=== PATIENT | female | born 1955 | race African-American/Black ===

== ENCOUNTER 2018-02-20 13:45 | Inpatient (IN) | payer MEDICARE, OTHER ==
[~2018-02-20] VITALS: Ht 152.4 cm; Wt 39.4 kg
[2018-02-20] VITALS (8 sets, daily range): BP systolic 132–178; BP diastolic 64–89; PULSE 40–72; RESP 9–18; TEMP 97.2; O2SAT 95–100
[~2018-02-20 13:45] MED LIST: AMLO5 PO; ATOR10 PO; RISP3 PO; RISP4TAB41 PO; SULF1TAB47 PO; TRAM50TA PO
[2018-02-20] MEDS ORDERED: SODIUM CHLOR 0.9% 1000 ML INJ 1,000 ML IV ONE ×2 (13:48→15:30)
[2018-02-20 14:06] LABS: AUTOMATED NEUTROPHIL # 3.8 TH/MM3 (1.8-7.7); BASOPHIL % 0.2 % (0.0-2.0); EOSINOPHIL % 0.1 % (0.0-4.0); HEMATOCRIT 30.7 % (35.0-46.0); HEMOGLOBIN 9.8 GM/DL (11.6-15.3); LYMPH % 24.7 % (9.0-44.0); LYMPHOCYTE # 1.3 TH/MM3 (1.0-4.8); MEAN CELL VOLUME 86.5 FL (80.0-100.0); MEAN CORPUSCULAR HEMOGLOBIN 27.7 PG (27.0-34.0); MEAN PLATELET VOLUME 8.5 FL (7.0-11.0); MONO % 1.9 % (0.0-8.0); MONOCYTE # 0.1 TH/MM3 (0-0.9); NEUT % 73.1 % (16.0-70.0); PLATELET COUNT 135 TH/MM3 (150-450); RED BLOOD COUNT 3.55 MIL/MM3 (4.00-5.30); RED CELL DISTRIBUTION WIDTH 19.6 % (11.6-17.2); WHITE BLOOD COUNT 5.2 TH/MM3 (4.0-11.0)
[2018-02-20 14:13] LABS: INTERNATIONAL NORMALIZED RATIO 1.2 RATIO; PROTHROMBIN TIME - PATIENT 12.4 SEC (9.8-11.6)
--- NOTE | 2018-02-20 14:15 | RADRPT ---
EXAM DATE/TIME: 02/20/2018 13:57 [facility] COMPARISON: No previous studies available for comparison. INDICATIONS : Altered mental status, slurred speech, low blood glucose levels. RADIATION DOSE: 35.64 CTDIvol (mGy) This report was called by Dr Benton to Dr Blakely at 1410 MEDICAL HISTORY : Non-responsive. SURGICAL HISTORY : Non-responsive. ENCOUNTER: Initial ACUITY: 1 day PAIN SCALE: Non-responsive LOCATION: cranial TECHNIQUE: Multiple contiguous axial images were obtained of the head. Using automated exposure control and adj ustment of the mA and/or kV according to patient size, radiation dose was kept as low as reasonably a chievable to obtain optimal diagnostic quality images. DICOM format image data is available electro nically for review and comparison. FINDINGS: CEREBRUM: Atrophy. The ventricles are normal for age. No evidence of midline shift, mass lesion, hemorrhage or acute infarction. No extra-axial fluid collections are seen. POSTERIOR FOSSA: The cerebellum and brainstem are intact. The 4th ventricle is midline. The cerebellopontine angle i s unremarkable. EXTRACRANIAL: The visualized portion of the orbits is intact. SKULL: The calvaria is intact. No evidence of skull fracture. CONCLUSION: No acute disease. Bud Benton Jr., MD on February 20, 2018 at 14:06 Board Certified Radiologist. This report was verified electronically.
--- NOTE | 2018-02-20 14:26 | RADRPT ---
EXAM DATE/TIME: 02/20/2018 14:00 [facility] COMPARISON: No previous studies available for comparison. INDICATIONS : Stroke Alert. MEDICAL HISTORY : None. SURGICAL HISTORY : None. ENCOUNTER: Initial ACUITY: 1 day PAIN SCORE: Non-responsive. LOCATION: Bilateral chest FINDINGS: Minimal parenchymal changes left base. Right lung is clear.. The cardiomediastinal contours are unr emarkable. Osseous structures are intact. CONCLUSION: Minimal parenchymal changes left base. Sudhakar Angel MD FACR on February 20, 2018 at 14:23 Board Certified Radiologist. This report was verified electronically.
--- NOTE | 2018-02-20 14:27 | PD ---
HPI Chief Complaint: Altered Mental Status Time Seen by Provider: 13:48 Travel History International Travel<30 days: No Contact w/Intl Traveler<30days: No Traveled to known affect area: No History of Present Illness HPI 62-year-old female presents by ambulance as a stroke alert after she was seen normal an hour ago. 30 minutes prior to arrival in the ER she had a fall and has trauma noted to her forehead. She had an Accu-Chek of 53 and was given 10 g of D10 and then her sugar was 130. Patient can only make incomprehensible sounds in cannot provide me with any history PFSH Past Medical History Narrative Medical By records Cancer: No Cardiovascular Problems: No Dementia: Yes (PER CAREGIVER "WITH BEHAVIOR PROBLEMS") Endocrine: No Genitourinary: No Hypertension: Yes Musculoskeletal: No Neurologic: Yes (MR) Psychiatric: No Reproductive: No Respiratory: No ?: Unknown : 0 Para: 0 Miscarriage: 0 : 0 Past Surgical History Narrative Surgical By records Gynecologic Surgery: Yes (HYSTERECTOMY) Hysterectomy: Yes Social History Narrative Social History By records Alcohol Use: No Tobacco Use: No Substance Use: No Allergies-Medications (Allergen,Severity, Reaction): Coded Allergies: No Known Allergies (Unverified Allergy, Unknown, 02/20/18) Reported Meds & Prescriptions Reported Meds & Active Scripts Active Bactrim Ds (Trimethoprim/Sulfamethoxazole) Tab 1 Tab PO BID 5 Days Reported Tramadol Hcl (Tramadol HCl) 50 Mg Tab 100 Mg PO HS PRN Risperdal (Risperidone) 3 Mg Tab 10 Mg PO HS Norvasc (Amlodipine Besylate) 5 Mg Tab 2.5 Mg PO DAILY Lipitor (Atorvastatin Calcium) 10 Mg Tab 10 Mg PO DAILY Risperdal (Risperidone) 4 Mg Tab 5 Mg PO HS Review of Systems ROS Limitations: Altered Mental Status Except as stated in HPI: all other systems reviewed are Neg Physical Exam Exam Limitations: Altered Mental Status Narrative GENERAL: 62-year-old female who appears cachectic SKIN: Focused skin assessment warm/dry. HEAD: Abrasion noted to forehead. Normocephalic. EYES: No scleral icterus. No injection or drainage. ENT: No nasal bleeding or discharge. Mucous membranes pink and moist. NECK: Trachea midline. CARDIOVASCULAR: Regular rate and rhythm RESPIRATORY: No accessory muscle use. no increased effort GASTROINTESTINAL: Abdomen soft, nondistended. MUSCULOSKELETAL: No obvious deformities. NEUROLOGICAL: Eyes open to voice, incomprehensible sounds, moves extremities Data Data Last Documented VS Vital Signs Date Time Temp Pulse Resp B/P (MAP) Pulse Ox O2 Delivery O2 Flow Rate FiO2 02/20/18 14:09 96 Nasal Cannula 2.00 02/20/18 14:05 72 18 178/82 (114) Orders Orders Diet Npo (02/20/18 Lunch) Activity Bed Rest (02/20/18 ) Electrocardiogram (02/20/18 ) I-Stat Profile (02/20/18 13:48) Prothrombin Time / Inr (Pt) (02/20/18 13:48) Act Partial Throm Time (Ptt) (02/20/18 13:48) Complete Blood Count With Diff (02/20/18 13:48) Fibrinogen (02/20/18 13:48) Creatine Kinase (Cpk) (02/20/18 13:48) Troponin I (02/20/18 13:48) Ua Includes Microscopic (02/20/18 13:48) Drug Screen, Random Urine (02/20/18 13:48) Type And Screen (02/20/18 13:48) Ct Brain W/O Iv Contrast(Rout) (02/20/18 ) Chest, Single Ap (02/20/18 ) Consult Neurology (02/20/18 ) Blood Glucose (02/20/18 13:48) Ecg Monitoring (02/20/18 13:48) Neuro Checks Q2HX12,Q4H (02/20/18 13:48) Nursing Bedside Swallow Assess .ONCE (02/20/18 13:48) Iv Access Insert/Monitor (02/20/18 13:48) NPO (02/20/18 13:48) Oximetry (02/20/18 13:48) Resp Oxygen Nc Stroke (02/20/18 ) Sodium Chlor 0.9% 1000 Ml Inj (Ns 1000 M (02/20/18 13:48) Cath For Specimen (02/20/18 13:48) Lactic Acid (02/20/18 13:50) (Hub Use Only)Inp Phy Cons/Ref (02/20/18 14:07) CKMB (02/20/18 13:55) CKMB% (02/20/18 13:55) Ammonia (02/20/18 14:29) Arterial Blood Gas (Abg) (02/20/18 ) Admit To Inpatient (02/20/18 ) Code Status (02/20/18 14:31) Vital Signs (Adult) DAMIAN.Q1H (02/20/18 14:31) Activity Bed Rest (02/20/18 14:31) Elevate Head Of Bed (02/20/18 14:31) Neuro Checks . ORDERED (02/20/18 14:31) Famotidine Inj (Pepcid Inj) (02/20/18 21:00) Albuterol-Ipratropium Neb (Duoneb Neb) (02/20/18 16:00) Albuterol-Ipratropium Neb (Duoneb Neb) (02/20/18 14:45) Complete Blood Count With Diff (02/21/18 04:00) Comprehensive Metabolic Panel (02/21/18 04:00) Sputum Culture And Gram Stain (02/20/18 14:31) [employer] / Telemetry DAMIAN.Q8H (02/20/18 14:31) Heparin Inj (Heparin Inj) (02/20/18 15:00) Scd Bilateral/Knee High DAMIAN.BID (02/20/18 14:31) ^ Initiate Protocol (02/20/18 14:31) Instruction (02/20/18 14:31) [facility] Nursing Information (02/20/18 14:45) Chlorhexidine 2% Cloth (Chlorhexidine 2% (02/21/18 04:00) Chlorhexidine 2% Cloth (Chlorhexidine 2% (02/20/18 14:45) Mrsa Pcr Surveillance (02/20/18 14:31) Docusate Sodium-Senna (Lay-Colace) (02/20/18 21:00) Magnesium Hydroxide Liq (Milk Of Magnesi (02/20/18 14:45) Sennosides (Senokot) (02/20/18 14:45) Bisacodyl Supp (Dulcolax Supp) (02/20/18 14:45) Lactulose Liq (Lactulose Liq) (02/20/18 14:45) Inpatient Certification (02/20/18 ) Admit Order (Ed Use Only) (02/20/18 14:31) Blood Glucose (02/20/18 14:31) Labs Laboratory Tests Test 02/20/18 13:55 02/20/18 14:34 White Blood Count 5.2 TH/MM3 Red Blood Count 3.55 MIL/MM3 Hemoglobin 9.8 GM/DL Bedside Hemoglobin 10.5 G/DL Hematocrit 30.7 % Bedside Hematocrit 31.0 % Mean Corpuscular Volume 86.5 FL Mean Corpuscular Hemoglobin 27.7 PG Mean Corpuscular Hemoglobin Concent 32.0 % Red Cell Distribution Width 19.6 % Platelet Count 135 TH/MM3 Mean Platelet Volume 8.5 FL Neutrophils (%) (Auto) 73.1 % Lymphocytes (%) (Auto) 24.7 % Monocytes (%) (Auto) 1.9 % Eosinophils (%) (Auto) 0.1 % Basophils (%) (Auto) 0.2 % Neutrophils # (Auto) 3.8 TH/MM3 Lymphocytes # (Auto) 1.3 TH/MM3 Monocytes # (Auto) 0.1 TH/MM3 Eosinophils # (Auto) 0.0 TH/MM3 Basophils # (Auto) 0.0 TH/MM3 CBC Comment DIFF FINAL Differential Comment Prothrombin Time 12.4 SEC Prothromb Time International Ratio 1.2 RATIO Activated Partial Thromboplast Time 31.7 SEC Fibrinogen 402 mg/dL Bedside Sodium 134 MMOL/L Bedside Potassium 4.5 MMOL/L Bedside Chloride 98 MMOL/L Bedside Blood Urea Nitrogen 37 MG/DL Bedside Creatinine 0.4 MG/DL Bedside Glucose 134 MG/DL Total Creatine Kinase 269 U/L Creatine Kinase MB 17.8 NG/ML Creatine Kinase MB % 6.6 % Troponin I LESS THAN 0.02 NG/ML Blood Gas Puncture Site LT RADIAL Blood Gas Patient Temperature 98.6 Blood Gas HCO3 29 mmol/L Blood Gas Base Excess 3.9 mmol/L Blood Gas Oxygen Saturation 98 % Arterial Blood pH 7.37 Arterial Blood Partial Pressure CO2 51 mmHg Arterial Blood Partial Pressure O2 217 mmHG Arterial Blood Oxygen Content 14.1 Vol % Arterial Blood Carboxyhemoglobin 0.6 % Arterial Blood Methemoglobin 0.6 % Blood Gas Hemoglobin 9.9 G/DL Oxygen Delivery Device NASAL CANNULA Blood Gas Liter Flow 2 L/M MDM Medical Decision Making Medical Screen Exam Complete: Yes Emergency Medical Condition: Yes Medical Record Reviewed: Yes (limited records reviewed from 2013) Interpretation(s) CBC & BMP Diagram 02/20/18 13:55 Last [address] 02/20/18 0000 Signed Impressions: Service Date/Time: Tuesday, February 20, 2018 13:57 - CONCLUSION: No acute disease. Bud Benton Jr., MD Chest X-Ray 02/20/18 0000 Signed Impressions: Service Date/Time: Tuesday, February 20, 2018 14:00 - CONCLUSION: Minimal parenchymal changes left base. Sudhakar Angel MD FACR Differential Diagnosis Intracranial bleed, metabolic encephalopathy, UTI, hepatic encephalopathy, respiratory acidosis, stroke Narrative Course Will check blood work, imaging and discuss with neurology Patient remains same neurologically, will admit in icu for close monitoring Physician Communication Physician Communication dr villegas agrees to proceed with workup but can cancel stroke alert as not tpa candidate and given symptoms dr lezama agrees to admit Diagnosis Primary Impression: Altered mental status Qualified Codes: R41.82 - Altered mental status, unspecified Additional Impressions: Bradycardia Anemia Qualified Codes: D64.9 - Anemia, unspecified Cachectic Admitting Information Admitting Physician Requests: Admit Altagracia Blakely MD Feb 20, 2018 14:27
[2018-02-20 14:28] LABS: TROPONIN I LESS THAN 0.02 NG/ML (0.02-0.05)
[2018-02-20] MEDS ORDERED: BISACODYL 10 MG SUPP RECTAL PRN (14:45)
[2018-02-20] MEDS ORDERED: SENNOSIDES 8.6 MG TAB PO PRN (14:45)
[2018-02-20] MEDS ORDERED: RESP: ALBUTEROL 2.5 MG/IPRATROPIUM 0.5 MG NEB (PRN) INH (14:45)
[2018-02-20] MEDS ORDERED: MAGNESIUM HYDROXIDE SUSP 30 ML CUP PO PRN (14:45)
[2018-02-20] MEDS ORDERED: MISCELLANEOUS NURSING INFORMATION XX SCH (14:45)
[2018-02-20] MEDS ORDERED: GLUCAGON 1 MG/ML VIAL OTHER PRN (14:45)
[2018-02-20] MEDS ORDERED: CHLORHEXIDINE GLUCONATE 2 % 1 PACK (2 CLOTHS) TOP PRN (14:45)
[2018-02-20] MEDS ORDERED: LACTULOSE SYRUP 20 GM/30 ML CUP PO PRN (14:45)
[2018-02-20] MEDS: RESP: ALBUTEROL 2.5 MG/IPRATROPIUM 0.5 MG NEB (SCH) INH ×2 (15:10→19:18)
[2018-02-20] MEDS: DEXT 5%-NACL 0.9% 1000 ML INJ 1,000 ML IV SCH (15:30)
[2018-02-20] MEDS: HEPARIN SODIUM - SQ 10,000 UNITS/ML VIAL SQ SCH (15:31)
--- NOTE | 2018-02-20 15:59 | MH ---
cc: Venu Garrett MD DATE OF ADMISSION: 02/20/2018 Patient is a 62-year-old female with a history of hypertension, mental retardation with underlying dementia, who presented to [facility] ED via ambulance as a stroke alert. The patient is status post a fall and hit her forehead. She was found to be hypoglycemic with a blood sugar of 53 and was given 10 grams of D10 and then her sugar was 130. The patient is a very poor historian. She had a CT scan of the brain, which showed no acute disease. In addition, a chest x-ray in the ER showed minimal parenchymal changes left base. ABG was performed on 2 liter nasal cannula, which showed a pH of 7.37, CO2 51, pO2 217, bicarb 29, saturation of 98%. Most of the history was obtained from reviewing the medical records. In the ED, she was hypertensive with a systolic blood pressure 150s to 170s; however, she had intermittent bradycardia with a heart rate in the 40s. The patient is on [address] Le from neurology service was notified regarding the stroke alert, and given her clinical presentation, patient was not a candidate for TPA. PAST MEDICAL HISTORY: Significant for hypertension, mental retardation. PAST SURGICAL HISTORY: Previous hysterectomy. SOCIAL HISTORY: Nonsmoker, nondrinker. ALLERGIES: NO KNOWN DRUG ALLERGIES. MEDICATIONS AT HOME: None, according to the caregiver. REVIEW OF SYSTEMS: As per HPI. Rest of review of systems limited as the patient is a poor historian. PHYSICAL EXAMINATION: A 62-year-old female lying in bed in no acute respiratory distress. VITAL SIGNS: Afebrile. Pulse 40s to 70s, respiratory rate 17, blood pressure 157/89, saturation 96% to 100% on 2 L oxygen. HEENT: Atraumatic, normocephalic. Pupils are equal, round, reactive to light and accommodation. Extraocular muscles intact. Conjunctivae pink. Nonicteric sclerae. Oral mucosa, dry mucous membranes noted. NECK: Supple. No JVD, adenopathy, thyromegaly. Trachea midline. CARDIOVASCULAR: Regular rate and rhythm. Normal S1, S2. No murmurs, rubs or gallops noted. PULMONARY: Bilateral air entry. No rales or wheezing. ABDOMEN: Soft, nontender. No distention. Positive bowel sounds. EXTREMITIES: No cyanosis, clubbing or edema. NEUROLOGIC: No focal sensory deficit. Contracted upper extremity. LABORATORY DATA: WBC 5.2, hemoglobin 9.8, hematocrit 30, platelet count 135. Point of care labs, sodium 134, potassium 4.5, chloride 98, BUN 37, creatinine 0.4, glucose of 134, total CK 269. Troponin less than 0.02, CK-MB 17.8, total CK 269. INR 1.2, PT 12.4, PTT 31, fibrinogen 402. Blood gas: A pH of 7.37, CO2 41, pO2 217, bicarb 29, sats 98% on 2 liters. RADIOGRAPHIC STUDIES: A CT scan of the brain: No acute disease. Chest x-ray showed minimal parenchymal changes left base. IMPRESSION: 1. Respiratory insufficiency. 2. Altered mental status. 3. Status post hypoglycemic episode. 4. Bradycardia. 5. History of hypertension. 6. Mental retardation. RECOMMENDATIONS: 1. Monitor neuro status closely and avoid any sedatives. A CT scan of the brain in the ED negative for acute intracranial process. We will check ammonia level, TSH and a urine drug screen. Neurology service was notified by ED. Her altered mental status could be secondary to hypoglycemia and bradycardia. 2. Continue with oxygen to maintain sats above 92%. 3. Bronchodilators in the form of DuoNeb q.6 plus q.2 hours p.r.n. for shortness of breath. 4. Monitor heart rate and blood pressure closely and maintain MAP greater than 65 mmHg. 5. Monitor cardiac enzymes with troponins. Will obtain 2-D echo to evaluate LV function and to rule out regional wall motion abnormalities. Consult cardiology service regarding bradycardia and check TSH level as stated above. 6. Monitor renal function, I's and O's and electrolyte replacement per protocol. Place on D5 NS at 84 mL an hour. I will give 1 liter NS bolus. 7. Keep n.p.o. for now. Consult speech therapy. Place on Pepcid for GI prophylaxis and follow up on a CMP. 8. Monitor for signs infections, which include fever and WBC. We will hold off on antibiotics at this time as there is no evidence of any infectious process. We will check urinalysis with culture if indicated. 9. Place on sliding scale insulin with Accu-Cheks q.4 hour and dextrose solution given hypoglycemic episode on arrival. 10. Monitor CBC. 11. GI prophylaxis with Pepcid and DVT prophylaxis with SCDs and heparin subQ. 12. Consult palliative care to assist with goals of care. 13. Further recommendations will be based on hospital course. MD TALIA Maier/BONNIE , 03:20 PM , 03:57 PM
[2018-02-20] MEDS: INSULIN NovoLIN REGULAR SUPPLEMENTAL SCALE SQ SCH ×4 (16:00→22:00)
[2018-02-20] MEDS ORDERED: INSULIN NovoLIN REGULAR SUPPLEMENTAL SCALE SQ SCH (16:00)
[2018-02-20 16:10] LABS: BICARBONATE 29.4 MEQ/L (21.0-32.0); BLOOD UREA NITROGEN 33 MG/DL (7-18); CHLORIDE 100 MEQ/L (98-107); CREATININE 0.39 MG/DL (0.50-1.00); DIRECT BILIRUBIN ADULT 0.3 MG/DL (0.0-0.2); GLOMERULAR FILTRATION RATE 201 ML/MIN (>89); GLUCOSE,RANDOM 60 MG/DL (74-106); SODIUM (NA) 135 MEQ/L (136-145)
[2018-02-20 16:30] LABS: ALKALINE PHOSPHATASE 436 U/L (45-117); ALT (GPT) 1102 U/L (10-53); AST (GOT) 2943 U/L (15-37); TOTAL BILIRUBIN ADULT 0.5 MG/DL (0.2-1.0); TOTAL PROTEIN 7.7 GM/DL (6.4-8.2)
--- NOTE | 2018-02-20 17:12 | MB ---
cc: Jhon Le MD DATE: 02/20/2018 HISTORY OF PRESENT ILLNESS: She is a 62-year-old seen in neurologic evaluation. She came in initially as a stroke alert. Discussed with the ED physician a couple of occasions and felt this patient was not likely a stroke diagnosis and not a TPA candidate. It appears that she had a fall. She was poorly responsive and noted to be hypoglycemic with blood sugar of 53; after glucose given, her blood sugar came up to around 130. She may have some cognitive impairment on a chronic basis. Also, apparently history of hypertension. In the emergency room, she was noted to have some bradycardia. The CT brain was negative. NEUROLOGIC EXAMINATION: On exam, she was much more responsive by the time I saw her still in the emergency room. She was starting to verbalize, moaning some words and when I asked her how felt, she answered "pretty good." Her speech is dysarthric. She appears frail and has some spasticity/increased tone in all 4 extremities. Right eye opacification. The left pupil was reactive. Reflexes at the knees, trace, plantar responses probably flexor. ADDITIONAL ANCILLARY DATA: Includes a white count 5.2, hemoglobin 9.8, platelet 135. Sodium 134, potassium 4.5, BUN 37, creatinine 0.4, serum glucose 134. CPK 269. ASSESSMENT AND PLAN: Acute encephalopathy, likely from a metabolic nature. Again, unlikely cerebrovascular event. The patient was not a candidate for TPA and she seems to be improving. She had some hypoglycemia and noted to have some bradycardia and apparently some respiratory distress. Neurologic bergman, we will monitor her and define the need for any additional neurological workup according to clinical course, additional history by family, etc. We could start her on a baby aspirin later on, will be sure anemia is stable. Thank you for asking us to assist in her care. MD RIVAS Davies/KENIA , 04:36 PM , 05:11 PM
--- NOTE | 2018-02-20 17:22 | PD.CONS ---
Consult Service Palliative Care . Consult Requested By Dr. Mccallum . Primary Care Physician Unknown . Reason for Consultation a. To assist with evaluation and management of symptoms including: confusion. b. To assist medical decision maker(s) with: better understanding of current medical conditions; weighing benefits/burdens of medical treatment options; making medical treatment decisions. . (Isabela Vera) HPI History of Present Illness Ms. Campbell is a 62-year-old female with past medical history of hypertension, mental retardation with underlying dementia. Patient presented to [facility] emergency department on 02/20/18 via ambulance as a stroke alert. Patient is status post fall where she hit her forehead. She was found to be hypoglycemic with a blood sugar of 53 after D10 her blood sugar increased to 130. Upon arrival to the emergency department evaluation revealed: * VS: Pulse 40-72, respiration 18, BP 178/82, oxygen saturation 96% on nasal cannula 2 L * CT scan of the brain revealed no acute disease. * Chest x-ray with minimal parenchymal changes in the left base. * ABG on 2 L nasal cannula: PH 7.37, CO2 51, PO2 217, bicarb 29, oxygen saturation 98% * WBC 5.2, hemoglobin 9.8, hematocrit 30, platelets 135 * Sodium 134, potassium 4.5, chloride 98, BUN 37, creatinine 0.4, glucose 134 * Total CK 269, CK-MB 17.8 * Troponin less than 0.02 * PT 12.4, INR 1.2, PTT 31, fibrinogen 402 * Additional labs including TSH, urine drug screen, ammonia pending. Dr. Le, neurology was consulted for stroke alert, patient was not a candidate for TPA given clinical presentation. Cardiology consulted for bradycardia. 2D echo ordered to evaluate LV function and rule out regional wall motion abnormalities. N.p.o. pending speech evaluation. Patient is admitted for respiratory insufficiency, altered mental status, hypoglycemia, bradycardia, hypertension. Palliative care is consulted to assist with further clarification of treatment goals. . Function/Cognitive Trajectory Nurse indicates patient was ambulatory prior to today. Per old EMR review patient has the mental capacity of a 14 year old. Left message for legal guardian, Swati Gutierrez to obtain more information and clarify goals. . (Isabela Vera) Review of Systems ROS Limitations: Altered Mental Status Constitutional: COMPLAINS OF: Fatigue, Change in appetite (decreased) Hematologic/Lymphatics: COMPLAINS OF: Bruising Neurologic: COMPLAINS OF: Poor Balance (fell prior to admission) Psychiatric: COMPLAINS OF: Confusion (reported mental retardation and dementia. ), Agitation (Isabela Vera) Past Family Social History Coded Allergies: No Known Allergies (Unverified Allergy, Unknown, 02/20/18) Past Medical History Dementia Hypertension Mental retardation . Past Surgical History Hysterectomy . Reported Medications Reported Meds & Active Scripts Active No Active Prescriptions or Reported Medications . Current Medications Medications (Trade) Dose Ordered Sig/Arabella Route Start Time Stop Time Status Last Admin (Pepcid Inj) 20 mg Q12HR IV PUSH 02/20/18 21:00 (Duoneb Neb) 1 ampule Q6HR NEB INH 02/20/18 16:00 02/20/18 15:10 (Duoneb Neb) 1 ampule Q2HR NEB PRN INH 02/20/18 14:45 (Heparin Inj) 5,000 units Q12H SQ 02/20/18 15:00 02/20/18 15:31 Miscellaneous Information 1 Q361D XX 02/20/18 14:45 (Chlorhexidine 2% Cloth) 3 pack Taper DAILY@04 TOP 02/21/18 04:00 02/17/19 03:59 (Chlorhexidine 2% Cloth) 3 pack UNSCH PRN TOP 02/20/18 14:45 (Lay-Colace) 1 tab BID PO 02/20/18 21:00 (Milk Of Magnesia Liq) 30 ml Q12H PRN PO 02/20/18 14:45 (Senokot) 17.2 mg Q12H PRN PO 02/20/18 14:45 (Dulcolax Supp) 10 mg DAILY PRN RECTAL 02/20/18 14:45 (Lactulose Liq) 30 ml DAILY PRN PO 02/20/18 14:45 Dextrose/Sodium Chloride 1,000 ml @ 84 mls/hr [id number] IV 02/20/18 15:00 02/20/18 15:30 (D50w (Vial) Inj) 50 ml UNSCH PRN IV PUSH 02/20/18 14:45 (Glucagon Inj) 1 mg UNSCH PRN OTHER 02/20/18 14:45 (NovoLIN R SUPPLEMENTAL SCALE) 1 Q2HR SQ 02/20/18 16:00 Family History Unknown, patient unable to answer questions. . Substance Use Tobacco: Non-smoker. Alcohol: None. Prescription med abuse: None. Illicits: None. . Psychosocial History Single. Lives with her legal guardian, Swati Gutierrez er EMR review. I do not see any legal documentation of legal guardianship, will request. . Spiritual/Cultural Factors Unknown. . (Isabela Vera) Health Care Surrogate(s): Patient is not capacitated to make her own health care decisions, will not regain capacity. Per EMR review, Swati Gutierrez is legal guardian, will request paperwork. . Today's verbally stated goals: Patient is not capacitated to make her own health care decisions, will not regain capacity. . Family/friends goals: Left message for legal guardian. . Ethical and Legal Issues Patient is not capacitated to make her own health care decisions, will not regain capacity. Per EMR review, Swati Gutierrez is legal guardian, will request paperwork. . (Isabela Vera) Physical Exam Vital Signs Date Time Temp Pulse Resp B/P (MAP) Pulse Ox O2 Delivery O2 Flow Rate FiO2 02/20/18 15:47 44 17 153/85 (107) 96 Room Air 02/20/18 14:59 42 17 157/89 (111) 100 Nasal Cannula 2.00 02/20/18 14:09 96 Nasal Cannula 2.00 02/20/18 14:06 96 Nasal Cannula 2.00 02/20/18 14:05 72 18 178/82 (114) 95 Nasal Cannula 2.00 02/20/18 13:51 Nasal Cannula 3.00 Exam CONSTITUTIONAL/GENERAL: This is a frail, cachectic female patient, in no apparent distress. TUBES/LINES/DRAINS: NC. SKIN: No jaundice, rashes, or lesions. Ecchymoses on upper extremities. No wounds seen anteriorly. Skin temperature appropriate. Not diaphoretic. HEAD: Atraumatic. Normocephalic. EYES: Pupils equal and round and reactive. Extraocular motions intact. No scleral icterus. No injection or drainage. Fundi not examined. ENT: Opens eyes to voice with repeated request. Speech slurred, unable to understand. Nose without bleeding or purulent drainage. Poor dentition. Dry mucous membranes. NECK: Trachea midline. CARDIOVASCULAR: Regular rate and rhythm without murmurs, gallops, or rubs. No JVD. RESPIRATORY/CHEST: Symmetric, unlabored respirations. Diminished, clear. GASTROINTESTINAL: Abdomen soft, non-tender, nondistended. No guarding. Bowel sounds present. GENITOURINARY: Without palpable bladder distension. MUSCULOSKELETAL: Extremities without clubbing, cyanosis, or edema. No mottling or clubbing. LYMPHATICS: No palpable cervical or supraclavicular adenopathy. NEUROLOGICAL: Awakens to repeated request to open eyes. Speech slurred, unintelligible. Moves all extremities. PSYCHIATRIC: confused. . (Isabela Vera) Diagnostic Tests Laboratory Laboratory Tests Test 02/20/18 13:55 02/20/18 14:34 02/20/18 15:15 White Blood Count 5.2 TH/MM3 (4.0-11.0) Red Blood Count 3.55 MIL/MM3 (4.00-5.30) Hemoglobin 9.8 GM/DL (11.6-15.3) Bedside Hemoglobin 10.5 G/DL (11.6-15.3) Hematocrit 30.7 % (35.0-46.0) Bedside Hematocrit 31.0 % (35.0-46.0) Mean Corpuscular Volume 86.5 FL (80.0-100.0) Mean Corpuscular Hemoglobin 27.7 PG (27.0-34.0) Mean Corpuscular Hemoglobin Concent 32.0 % (32.0-36.0) Red Cell Distribution Width 19.6 % (11.6-17.2) Platelet Count 135 TH/MM3 (150-450) Mean Platelet Volume 8.5 FL (7.0-11.0) Neutrophils (%) (Auto) 73.1 % (16.0-70.0) Lymphocytes (%) (Auto) 24.7 % (9.0-44.0) Monocytes (%) (Auto) 1.9 % (0.0-8.0) Eosinophils (%) (Auto) 0.1 % (0.0-4.0) Basophils (%) (Auto) 0.2 % (0.0-2.0) Neutrophils # (Auto) 3.8 TH/MM3 (1.8-7.7) Lymphocytes # (Auto) 1.3 TH/MM3 (1.0-4.8) Monocytes # (Auto) 0.1 TH/MM3 (0-0.9) Eosinophils # (Auto) 0.0 TH/MM3 (0-0.4) Basophils # (Auto) 0.0 TH/MM3 (0-0.2) CBC Comment DIFF FINAL Differential Comment Prothrombin Time 12.4 SEC (9.8-11.6) Prothromb Time International Ratio 1.2 RATIO Activated Partial Thromboplast Time 31.7 SEC (24.3-30.1) Fibrinogen 402 mg/dL (227-377) Bedside Sodium 134 MMOL/L (137-144) Bedside Potassium 4.5 MMOL/L (3.6-5.0) Bedside Chloride 98 MMOL/L (102-111) Bedside Blood Urea Nitrogen 37 MG/DL (5-21) Bedside Creatinine 0.4 MG/DL (0.6-1.3) Bedside Glucose 134 MG/DL (68-110) Total Creatine Kinase 269 U/L (26-192) Creatine Kinase MB 17.8 NG/ML (0.5-3.6) Creatine Kinase MB % 6.6 % (0.0-4.0) Troponin I LESS THAN 0.02 NG/ML Blood Gas Puncture Site LT RADIAL Blood Gas Patient Temperature 98.6 Blood Gas HCO3 29 mmol/L (22-26) Blood Gas Base Excess 3.9 mmol/L (-2-2) Blood Gas Oxygen Saturation 98 % (90-100) Arterial Blood pH 7.37 (7.380-7.420) Arterial Blood Partial Pressure CO2 51 mmHg (38-42) Arterial Blood Partial Pressure O2 217 mmHG (61-120) Arterial Blood Oxygen Content 14.1 Vol % (12.0-20.0) Arterial Blood Carboxyhemoglobin 0.6 % (0-4) Arterial Blood Methemoglobin 0.6 % (0-2) Blood Gas Hemoglobin 9.9 G/DL (12.0-16.0) Oxygen Delivery Device NASAL CANNULA Blood Gas Liter Flow 2 L/M Blood Urea Nitrogen 33 MG/DL (7-18) Creatinine 0.39 MG/DL (0.50-1.00) Random Glucose 60 MG/DL (74-106) Total Protein 7.7 GM/DL (6.4-8.2) Albumin 3.0 GM/DL (3.4-5.0) Calcium Level 8.0 MG/DL (8.5-10.1) Alkaline Phosphatase 436 U/L (45-117) Aspartate Amino Transf (AST/SGOT) 2943 U/L (15-37) Alanine Aminotransferase (ALT/SGPT) 1102 U/L (10-53) Total Bilirubin 0.5 MG/DL (0.2-1.0) Direct Bilirubin 0.3 MG/DL (0.0-0.2) Sodium Level 135 MEQ/L (136-145) Potassium Level 3.8 MEQ/L (3.5-5.1) Chloride Level 100 MEQ/L (98-107) Carbon Dioxide Level 29.4 MEQ/L (21.0-32.0) Anion Gap 6 MEQ/L (5-15) Estimat Glomerular Filtration Rate 201 ML/MIN (>89) Lactic Acid Level 1.2 mmol/L (0.4-2.0) Ammonia 21 MCMOL/L (11-32) Thyroid Stimulating Hormone 3rd Gen 6.220 uIU/ML (0.358-3.740) Ethyl Alcohol Level LESS THAN 3 MG/DL (0-5) (Isabela Vera) Result Diagram: 02/20/18 1355 02/20/18 1515 Imaging Last Impressions Head CT 02/20/18 0000 Signed Impressions: Service Date/Time: Tuesday, February 20, 2018 13:57 - CONCLUSION: No acute disease. Bud Benton Jr., MD Chest X-Ray 02/20/18 0000 Signed Impressions: Service Date/Time: Tuesday, February 20, 2018 14:00 - CONCLUSION: Minimal parenchymal changes left base. Sudhakar Angel MD FACR . (Isabela Vera) Patient/Family Conference Present at Family Conference: Left message for reported legal guardianSwati. awaiting return call. . (Isabela Vera) Assessment and Plan Disease Oriented Problem List: (1) Altered mental status (2) Bradycardia (3) Anemia (4) Cachectic (5) Hypertensive urgency (6) Hypokalemia Symptom Scale: (1) Pain (2) Dyspnea Pertinent Non-Medical Issues Psychosocial: Reported Legal guardian Swati Gutierrez. Spiritual:Unknown. Legal: Patient is not capacitated to make her own health care decisions, will not regain capacity. Reported legal guardianSwati, will request copies of guardianship paperwork. Ethical issues impacting care: No known concerns at this time. . Important Contacts * Swati Gutierrez legal guardian: [phone]. . Prognosis Will need additional testing to better prognosticate. However this patient appears quite frail, cachectic and debilitated which puts her at high risk for further setbacks and decline. . Code Status: Full Code Plan * Decision Maker: Patient is not capacitated to make her own health care decisions, will not regain capacity. Per EMR review, Swati Gutierrez is reported legal guardian, will request paperwork. * FULL CODE -will clarify with legal guardian when able to have a conversation. * Palliative care left message for reported legal guardianSwati. Awaiting return call. * SYMPTOMS: Confusion: Altered mental status secondary to reported mental retardation and underlying dementia. Possibly complicated by infection, hypoglycemia, possible stroke, other. * Palliative care will continue to follow throughout hospital course to assist with symptom management and clarification of goals as needed. . (Isabela Vera) Thank you for the opportunity to participate in the care of Ms. Campbell. (Isabela Vera) Attestation To help prompt me to consider important information that might be impacting today's encounter and assessment, information from prior notes written by myself or my colleagues may have been "brought forward" into today's note. My signature on this note, however, is an attestation that I personally performed the exam, history, and/or decision-making noted today, and, unless otherwise indicated, the interactions with patient, family, and staff as well as the review of records all occurred today. I also attest that the listed assessment and stated plan reflect my best clinical judgment today based on the combination of historical information, prior notes, and today's exam/ interactions. When time spent is documented, it refers only to time spent today by the signer, or if indicated, combined time spent today by collaborating physician/nurse practitioner. (Isabela Vera) Collaborating MD Comments Chart reviewed. Case discussed with palliative care CUSTOMER SERVICE SALES ASSOCIATE. Above CUSTOMER SERVICE SALES ASSOCIATE note reviewed and I concur. . (Jordan Tai MD) Isabela Vera Feb 20, 2018 17:22 Jordan Tai MD Mar 08, 2018 14:32
[2018-02-20] MEDS ORDERED: ATROPINE SULFATE 1 MG/10 ML SYRINGE ONE (19:25)
--- NOTE | 2018-02-20 20:33 | RADRPT ---
EXAM DATE/TIME: 02/20/2018 18:47 [facility] COMPARISON: No previous studies available for comparison. INDICATIONS : Increased lab values. MEDICAL HISTORY : Hypertension. Dementia. SURGICAL HISTORY : Hysterectomy. ENCOUNTER: Initial ACUITY: 1 day PAIN SCORE: 2/10 LOCATION: Bilateral upper quadrant MEASUREMENTS: LIVER: 11.4 cm length COMMON DUCT: 4 mm RIGHT KIDNEY: 7.3 x 3.3 x 3.8 cm SPLEEN: 7.3 cm length FINDINGS: No focal abnormalities in the liver. Portal venous flow normal direction. Dilated by 4 mm in diameter . Trace free fluid around liver. Small echogenic right kidney. No gallstones or biliary ductal dilata tion. CONCLUSION: 1. No gallstones or ductal dilatation. Right-sided medical renal disease. Trace free fluid. Javier Walden MD on February 20, 2018 at 20:29 Board Certified Radiologist. This report was verified electronically.
[2018-02-20] MEDS: DOCUSATE SODIUM 50 MG/SENNA 8.6 MG TAB PO SCH (21:00)
[2018-02-20] MEDS ORDERED: ACETYLCYSTEINE 20% 6,000 MG/30 ML ORAL SOLN VIAL PO ONE (21:30)
[2018-02-20] MEDS: FAMOTIDINE 20 MG/2 ML VIAL IV PUSH SCH (22:08)
[2018-02-20 22:26] LABS: TROPONIN I LESS THAN 0.02 NG/ML (0.02-0.05)
[2018-02-21] VITALS (19 sets, daily range): BP systolic 89–186; BP diastolic 44–108; PULSE 49–74; RESP 6–39; TEMP 97.4; O2SAT 94–100
--- NOTE | 2018-02-21 00:32 | MB ---
cc: Jarett Moss DO DATE: 02/20/2018 REASON FOR CONSULTATION: Bradycardia. HISTORY OF PRESENT ILLNESS: Janelle Campbell is a 62-year-old female who presented to [facility] Emergency Room on 02/20/2018 as a stroke alert. The patient is an extremely poor historian and so information is taken from the chart as well as the patient's roommate. Apparently, the patient got up this morning and was fed by her roommate. She was walking and then fell and hit her forehead. EMS was called and she was found to be hypoglycemic with a blood sugar of 53, and so she was given D10 for her hypoglycemia. She was seen by Dr. Le from Neurology and it was not felt that she was a candidate for TPA. It was not felt that she had a CVA. While here, she was noted to be bradycardic with heart rates in the 30s. I was consulted due to her bradycardia. In seeing her, she is unable to tell me if she has any symptoms. PAST MEDICAL HISTORY: 1. Hypertension. 2. Mental retardation. 3. Dementia. PAST SURGICAL HISTORY: Hysterectomy. ALLERGIES: NO KNOWN DRUG ALLERGIES. MEDICATIONS: Per her roommate, no medications. FAMILY HISTORY: Unable to obtain. SOCIAL HISTORY: Nonsmoker, nondrinker. REVIEW OF SYSTEMS: Unable to obtain due to the patient being nonverbal at this time. PHYSICAL EXAMINATION: VITAL SIGNS: Temperature 97.2, heart rate 42, blood pressure 132/64, respirations 18, pulse oximetry 96% on 2 liters. GENERAL: The patient is resting in bed in no acute distress. Alert and awake. HEENT: Extraocular muscles are intact. Mucous membranes moist. NECK: Supple. No JVD at 45 degrees. No carotid bruits heard bilaterally. Carotid upstroke is brisk in nature. HEART: Bradycardic, but regular rhythm. Positive first and second heart sounds with no noted murmurs, gallops or rubs. LUNGS: Clear to auscultation bilaterally. No wheezes, rales or rhonchi. ABDOMEN: Soft, nontender, nondistended. No organomegaly noted. EXTREMITIES: Show no clubbing, cyanosis or edema. Femoral and distal pulses are intact bilaterally. NEUROLOGIC: No notable focal deficits. SKIN: Warm, dry and intact. OSTEOPATHIC: No kyphoscoliosis, lordosis or paraspinal tender points. LABORATORY DATA: Hemoglobin 9.8, hematocrit 30.7, platelets 135. Potassium 3.8, BUN 33, creatinine 0.39. Troponin negative x2. TSH 6.22. Electrocardiogram: Baseline artifact, but appears to be a regular rhythm and bradycardic. IMPRESSIONS: 1. Respiratory insufficiency. 2. Altered mental status. 3. Baseline dementia. 4. Mental retardation. 5. Bradycardia. 6. Hypoglycemic episode. 7. History of hypertension. 8. Hypothyroid. RECOMMENDATIONS: 1. Ms. Campbell is currently bradycardic but hemodynamically stable at this time. Would not plan on placing a transvenous pacer. 2. Atropine and pacing pads will be placed in the room and used as necessary. 3. We will check a 2D echo to look at her overall left ventricular function, cardiac structure and possible valvopathies. 4. This may be due to her hypoglycemic and hypothyroidism, and I will have the medical team take care of these episodes. 5. Further recommendations will be made based on the hospital course. Thank you for allowing me to see Janelle Campbell. If there are any questions, please do not hesitate to call. DO JENNY Hope/GAVIN , 11:53 PM , 12:30 AM
[2018-02-21] MEDS ORDERED: ACETYLCYSTEINE 20% 6,000 MG/30 ML ORAL SOLN VIAL PO SCH (01:30)
[2018-02-21] MEDS: INSULIN NovoLIN REGULAR SUPPLEMENTAL SCALE SQ SCH ×11 (02:00→22:00)
[2018-02-21] MEDS: DEXT 5%-NACL 0.9% 1000 ML INJ 1,000 ML IV SCH ×2 (03:18→16:25)
[2018-02-21] MEDS: HEPARIN SODIUM - SQ 10,000 UNITS/ML VIAL SQ SCH ×2 (04:00→15:15)
[2018-02-21] MEDS: CHLORHEXIDINE GLUCONATE 2 % 1 PACK (2 CLOTHS) TOP SCH (04:00)
[2018-02-21] MEDS: RESP: ALBUTEROL 2.5 MG/IPRATROPIUM 0.5 MG NEB (SCH) INH ×4 (04:09→21:39)
[2018-02-21 04:40] LABS: AUTOMATED NEUTROPHIL # 4.5 TH/MM3 (1.8-7.7); BASOPHIL % 0.1 % (0.0-2.0); HEMATOCRIT 28.1 % (35.0-46.0); HEMOGLOBIN 9.1 GM/DL (11.6-15.3); LYMPH % 10.6 % (9.0-44.0); LYMPHOCYTE # 0.6 TH/MM3 (1.0-4.8); MEAN CELL VOLUME 87.1 FL (80.0-100.0); MEAN CORPUSCULAR HEMOGLOBIN 28.1 PG (27.0-34.0); MEAN CORPUSCULAR HGB CONC 32.2 % (32.0-36.0); MEAN PLATELET VOLUME 8.4 FL (7.0-11.0); MONO % 4.2 % (0.0-8.0); MONOCYTE # 0.2 TH/MM3 (0-0.9); NEUT % 85.1 % (16.0-70.0); PLATELET COUNT 117 TH/MM3 (150-450); RED BLOOD COUNT 3.23 MIL/MM3 (4.00-5.30); RED CELL DISTRIBUTION WIDTH 19.3 % (11.6-17.2); WHITE BLOOD COUNT 5.3 TH/MM3 (4.0-11.0)
[2018-02-21 05:04] LABS: ALBUMIN 2.7 GM/DL (3.4-5.0); BICARBONATE 27.5 MEQ/L (21.0-32.0); BLOOD UREA NITROGEN 33 MG/DL (7-18); CALCIUM 7.9 MG/DL (8.5-10.1); CHLORIDE 104 MEQ/L (98-107); CREATININE 0.45 MG/DL (0.50-1.00); GLUCOSE,RANDOM 56 MG/DL (74-106); SODIUM (NA) 138 MEQ/L (136-145)
[2018-02-21 05:05] LABS: ALT (GPT) 718 U/L (10-53)
[2018-02-21 05:12] LABS: ALKALINE PHOSPHATASE 324 U/L (45-117); AST (GOT) 1406 U/L (15-37); TOTAL BILIRUBIN ADULT 0.3 MG/DL (0.2-1.0); TOTAL PROTEIN 6.7 GM/DL (6.4-8.2)
--- NOTE | 2018-02-21 06:58 | HHI.CCPN ---
Subjective Remarks/Hospital Course Patient is a 62-year-old female with a history of hypertension, mental retardation with underlying dementia, who presented to [facility] ED via ambulance as a stroke alert. The patient is status post a fall and hit her forehead. She was found to be hypoglycemic with a blood sugar of 53 and was given 10 grams of D10 and then her sugar was 130. The patient is a very poor historian. She had a CT scan of the brain, which showed no acute disease. In addition, a chest x-ray in the ER showed minimal parenchymal changes left base. ABG was performed on 2 liter nasal cannula, which showed a pH of 7.37, CO2 51, pO2 217, bicarb 29, saturation of 98%. Most of the history was obtained from reviewing the medical records. In the ED, she was hypertensive with a systolic blood pressure 150s to 170s; however, she had intermittent bradycardia with a heart rate in the 40s. The patient is on [address] Le from neurology service was notified regarding the stroke alert, and given her clinical presentation, patient was not a candidate for TPA. 02/21 Patient is on 4L oxygen was hypotensive overnight. Afebrile. Objective Vital Signs Date Time Temp Pulse Resp B/P (MAP) Pulse Ox O2 Delivery O2 Flow Rate FiO2 02/21/18 04:00 97.4 56 15 110/53 (72) 100 02/20/18 19:18 Nasal Cannula 4.00 Intake and Output 02/21/18 02/21/18 02/22/18 08:00 16:00 00:00 Intake Total 1000 ml Balance 1000 ml Result Diagram: 02/21/18 0350 02/21/18 0350 Other Results Laboratory Tests Test 02/20/18 13:55 02/20/18 14:34 02/20/18 15:15 02/20/18 18:20 White Blood Count 5.2 TH/MM3 Red Blood Count 3.55 MIL/MM3 Hemoglobin 9.8 GM/DL Bedside Hemoglobin 10.5 G/DL Hematocrit 30.7 % Bedside Hematocrit 31.0 % Mean Corpuscular Volume 86.5 FL Mean Corpuscular Hemoglobin 27.7 PG Mean Corpuscular Hemoglobin Concent 32.0 % Red Cell Distribution Width 19.6 % Platelet Count 135 TH/MM3 Mean Platelet Volume 8.5 FL Neutrophils (%) (Auto) 73.1 % Lymphocytes (%) (Auto) 24.7 % Monocytes (%) (Auto) 1.9 % Eosinophils (%) (Auto) 0.1 % Basophils (%) (Auto) 0.2 % Neutrophils # (Auto) 3.8 TH/MM3 Lymphocytes # (Auto) 1.3 TH/MM3 Monocytes # (Auto) 0.1 TH/MM3 Eosinophils # (Auto) 0.0 TH/MM3 Basophils # (Auto) 0.0 TH/MM3 CBC Comment DIFF FINAL Differential Comment Prothrombin Time 12.4 SEC Prothromb Time International Ratio 1.2 RATIO Activated Partial Thromboplast Time 31.7 SEC Fibrinogen 402 mg/dL Bedside Sodium 134 MMOL/L Bedside Potassium 4.5 MMOL/L Bedside Chloride 98 MMOL/L Bedside Blood Urea Nitrogen 37 MG/DL Bedside Creatinine 0.4 MG/DL Bedside Glucose 134 MG/DL Total Creatine Kinase 269 U/L Creatine Kinase MB 17.8 NG/ML Creatine Kinase MB % 6.6 % Troponin I LESS THAN 0.02 NG/ML Blood Gas Puncture Site LT RADIAL Blood Gas Patient Temperature 98.6 Blood Gas HCO3 29 mmol/L Blood Gas Base Excess 3.9 mmol/L Blood Gas Oxygen Saturation 98 % Arterial Blood pH 7.37 Arterial Blood Partial Pressure CO2 51 mmHg Arterial Blood Partial Pressure O2 217 mmHG Arterial Blood Oxygen Content 14.1 Vol % Arterial Blood Carboxyhemoglobin 0.6 % Arterial Blood Methemoglobin 0.6 % Blood Gas Hemoglobin 9.9 G/DL Oxygen Delivery Device NASAL CANNULA Blood Gas Liter Flow 2 L/M Blood Urea Nitrogen 33 MG/DL Creatinine 0.39 MG/DL Random Glucose 60 MG/DL Total Protein 7.7 GM/DL Albumin 3.0 GM/DL Calcium Level 8.0 MG/DL Alkaline Phosphatase 436 U/L Aspartate Amino Transf (AST/SGOT) 2943 U/L Alanine Aminotransferase (ALT/SGPT) 1102 U/L Total Bilirubin 0.5 MG/DL Direct Bilirubin 0.3 MG/DL Sodium Level 135 MEQ/L Potassium Level 3.8 MEQ/L Chloride Level 100 MEQ/L Carbon Dioxide Level 29.4 MEQ/L Anion Gap 6 MEQ/L Estimat Glomerular Filtration Rate 201 ML/MIN Lactic Acid Level 1.2 mmol/L Ammonia 21 MCMOL/L Thyroid Stimulating Hormone 3rd Gen 6.220 uIU/ML Ethyl Alcohol Level LESS THAN 3 MG/DL Nasal Screen MRSA (PCR) MRSA NOT DETECTED Test 02/20/18 20:57 02/21/18 03:50 Total Creatine Kinase 407 U/L Creatine Kinase MB 24.8 NG/ML Creatine Kinase MB % 6.1 % Troponin I LESS THAN 0.02 NG/ML LESS THAN 0.02 NG/ML Salicylates Level LESS THAN 1.7 MG/DL Acetaminophen Level LESS THAN 2.0 MCG/ML Hepatitis A IgM Antibody NONREACTIVE Hepatitis B Surface Antigen NONREACTIVE Hepatitis B Core IgM Antibody NONREACTIVE Hepatitis C IgG Antibody NONREACTIVE White Blood Count 5.3 TH/MM3 Red Blood Count 3.23 MIL/MM3 Hemoglobin 9.1 GM/DL Hematocrit 28.1 % Mean Corpuscular Volume 87.1 FL Mean Corpuscular Hemoglobin 28.1 PG Mean Corpuscular Hemoglobin Concent 32.2 % Red Cell Distribution Width 19.3 % Platelet Count 117 TH/MM3 Mean Platelet Volume 8.4 FL Neutrophils (%) (Auto) 85.1 % Lymphocytes (%) (Auto) 10.6 % Monocytes (%) (Auto) 4.2 % Eosinophils (%) (Auto) 0.0 % Basophils (%) (Auto) 0.1 % Neutrophils # (Auto) 4.5 TH/MM3 Lymphocytes # (Auto) 0.6 TH/MM3 Monocytes # (Auto) 0.2 TH/MM3 Eosinophils # (Auto) 0.0 TH/MM3 Basophils # (Auto) 0.0 TH/MM3 CBC Comment DIFF FINAL Differential Comment Blood Urea Nitrogen 33 MG/DL Creatinine 0.45 MG/DL Random Glucose 56 MG/DL Total Protein 6.7 GM/DL Albumin 2.7 GM/DL Calcium Level 7.9 MG/DL Alkaline Phosphatase 324 U/L Aspartate Amino Transf (AST/SGOT) 1406 U/L Alanine Aminotransferase (ALT/SGPT) 718 U/L Total Bilirubin 0.3 MG/DL Sodium Level 138 MEQ/L Potassium Level 3.7 MEQ/L Chloride Level 104 MEQ/L Carbon Dioxide Level 27.5 MEQ/L Anion Gap 7 MEQ/L 25-Hydroxy Vitamin D Total 18.8 ng/ML Imaging Last Impressions Liver Ultrasound 02/20/18 0000 Signed Impressions: Service Date/Time: Tuesday, February 20, 2018 18:47 - CONCLUSION: 1. No gallstones or ductal dilatation. Right-sided medical renal disease. Trace free fluid. Javier Walden MD Head CT 02/20/18 0000 Signed Impressions: Service Date/Time: Tuesday, February 20, 2018 13:57 - CONCLUSION: No acute disease. Bud Benton Jr., MD Chest X-Ray 02/20/18 0000 Signed Impressions: Service Date/Time: Tuesday, February 20, 2018 14:00 - CONCLUSION: Minimal parenchymal changes left base. Sudhakar Angel MD FACR Objective Remarks GENERAL: Patient is 62 yo lying in bed in no acute resp distress lethargic SKIN: Warm and dry. HEAD: Normocephalic. EYES: No scleral icterus. No injection or drainage. NECK: Supple, trachea midline. No JVD or lymphadenopathy. CARDIOVASCULAR: Regular rate and rhythm without murmurs, gallops, or rubs. RESPIRATORY: Breath sounds equal bilaterally. No accessory muscle use. GASTROINTESTINAL: Abdomen soft, non-tender, nondistended. MUSCULOSKELETAL: No cyanosis, or edema. Neuro: Lethargic, non verbal. A/P Assessment and Plan 1. Respiratory insufficiency. 2. Altered mental status. 3. Status post hypoglycemic episode. 4. Bradycardia. 5. History of hypertension. 6. Mental retardation. 7 Elevated LFT's 8 Anemia Plan Neuro: Monitor neuro status closely and avoid any sedatives CT brain in ED negative for acute intracranial process. Tylenol level < 2, ASA level <1.7, Ammonia level : 21 Check EEG, neuro is following- Dr. Mimi Khalil: Continue with oxygen to maintain sats above 92%. Bronchodilators, aspiration precautions CV: Monitor HR and BP keep MAP>65 mmHg. Lactic acid 1.2, give NS 1Liter bolus, continue with IVF Trop negative x 3, for 2D echo today, cards is following- Dr. Moss : Monitor renal function, I's and O's and electrolyte replacement per protocol. on D5 NS at 84 mL an hour. GI: Speech eval, on Pepcid for GI prophylaxis and follow up on a CMP. Monitor LFT's, ( trending down), Hepatitis profile is negative US liver: No gallstones or ductal dilatation. Right-sided medical renal disease. Trace free fluid. Tylenol level < 2. GI is following ID: Monitor for signs infections, which include fever and WBC. Check UA Endo: SSI with Accu-Cheks q.4 , on D5NS@84ml/hr, add HC 100mg IV Q8 TSH: 6.2, check FT4, FT3 Heme: Monitor CBC. GI prophylaxis with Pepcid and DVT prophylaxis with SCDs and heparin subQ. Palliative care is following Level 3 Venu Garrett MD Feb 21, 2018 06:58
[2018-02-21] MEDS ORDERED: SODIUM CHLOR 0.9% 1000 ML INJ 1,000 ML IV ONE (07:00)
[2018-02-21] MEDS: DEXTROSE 50% IN WATER 50 ML VIAL(D50) IV PUSH PRN (07:19)
[2018-02-21] MEDS: HYDROCORTISONE SOD SUCCINATE 100 MG VIAL IV PUSH SCH ×3 (07:20→22:50)
[2018-02-21 08:05] LABS: FREE T3 0.88 PG/ML (2.18-3.98); FREE T4 0.88 NG/DL (0.76-1.46)
[2018-02-21] MEDS: DOCUSATE SODIUM 50 MG/SENNA 8.6 MG TAB PO SCH ×2 (09:00→21:00)
--- NOTE | 2018-02-21 10:15 | PD.CARD.PN ---
Subjective Subjective Remarks Overnight bradycardia no longer noted Blood pressure mild hypotension Objective Medications Current Medications Medications (Trade) Dose Ordered Sig/Arabella Route Start Time Stop Time Status Last Admin (Pepcid Inj) 20 mg Q12HR IV PUSH 02/20/18 21:00 02/20/18 22:08 (Duoneb Neb) 1 ampule Q6HR NEB INH 02/20/18 16:00 02/21/18 08:51 (Duoneb Neb) 1 ampule Q2HR NEB PRN INH 02/20/18 14:45 (Heparin Inj) 5,000 units Q12H SQ 02/20/18 15:00 02/21/18 04:00 Miscellaneous Information 1 Q361D XX 02/20/18 14:45 (Chlorhexidine 2% Cloth) 3 pack Taper DAILY@04 TOP 02/21/18 04:00 02/17/19 03:59 02/21/18 04:00 (Chlorhexidine 2% Cloth) 3 pack UNSCH PRN TOP 02/20/18 14:45 (Lay-Colace) 1 tab BID PO 02/20/18 21:00 02/20/18 21:00 (Milk Of Magnesia Liq) 30 ml Q12H PRN PO 02/20/18 14:45 (Senokot) 17.2 mg Q12H PRN PO 02/20/18 14:45 (Dulcolax Supp) 10 mg DAILY PRN RECTAL 02/20/18 14:45 (Lactulose Liq) 30 ml DAILY PRN PO 02/20/18 14:45 Dextrose/Sodium Chloride 1,000 ml @ 84 mls/hr [id number] IV 02/20/18 15:00 02/21/18 03:18 (D50w (Vial) Inj) 50 ml UNSCH PRN IV PUSH 02/20/18 14:45 02/21/18 07:19 (Glucagon Inj) 1 mg UNSCH PRN OTHER 02/20/18 14:45 (NovoLIN R SUPPLEMENTAL SCALE) 1 Q2HR SQ 02/20/18 16:00 (SoluCORTEF INJ) 100 mg Q8H IV PUSH 02/21/18 08:00 02/21/18 07:20 Vital Signs / I&O Vital Signs Date Time Temp Pulse Resp B/P (MAP) Pulse Ox O2 Delivery O2 Flow Rate FiO2 02/21/18 08:51 94 Nasal Cannula 4.00 02/21/18 04:00 97.4 56 15 110/53 (72) 100 02/21/18 00:00 67 39 184/77 (112) 99 02/20/18 20:00 40 9 164/70 (101) 99 02/20/18 19:18 100 Nasal Cannula 4.00 02/20/18 18:15 97.2 40 11 132/64 (86) 96 02/20/18 18:00 40 02/20/18 16:57 48 18 163/75 (104) 96 Room Air 02/20/18 15:47 44 17 153/85 (107) 96 Room Air 02/20/18 14:59 42 17 157/89 (111) 100 Nasal Cannula 2.00 02/20/18 14:09 96 Nasal Cannula 2.00 02/20/18 14:06 96 Nasal Cannula 2.00 02/20/18 14:05 72 18 178/82 (114) 95 Nasal Cannula 2.00 02/20/18 13:51 Nasal Cannula 3.00 I/O 02/20/18 02/20/18 02/20/18 02/21/18 02/21/18 02/21/18 07:00 15:00 23:00 07:00 15:00 23:00 Intake Total 1000 ml Balance 1000 ml Intake Oral 0 ml IV Total 1000 ml # Voids 5 # Bowel Movements 0 Physical Exam GENERAL: Lethargic, NAD SKIN: Warm and dry. HEAD: Atraumatic. Normocephalic. EYES: Pupils equal and round. No scleral icterus. No injection or drainage. ENT: No nasal bleeding or discharge. Mucous membranes pink and moist. NECK: Trachea midline. No JVD. CARDIOVASCULAR: Regular rate and rhythm. RESPIRATORY: No accessory muscle use. Clear to auscultation. Breath sounds equal bilaterally. GASTROINTESTINAL: Abdomen soft, non-tender, nondistended. Hepatic and splenic margins not palpable. MUSCULOSKELETAL: Upper extremities contracted NEUROLOGICAL: No obvious focal defects Laboratory Laboratory Tests Test 02/20/18 13:55 02/20/18 14:34 02/20/18 15:15 02/20/18 18:20 White Blood Count 5.2 TH/MM3 Red Blood Count 3.55 MIL/MM3 Hemoglobin 9.8 GM/DL Bedside Hemoglobin 10.5 G/DL Hematocrit 30.7 % Bedside Hematocrit 31.0 % Mean Corpuscular Volume 86.5 FL Mean Corpuscular Hemoglobin 27.7 PG Mean Corpuscular Hemoglobin Concent 32.0 % Red Cell Distribution Width 19.6 % Platelet Count 135 TH/MM3 Mean Platelet Volume 8.5 FL Neutrophils (%) (Auto) 73.1 % Lymphocytes (%) (Auto) 24.7 % Monocytes (%) (Auto) 1.9 % Eosinophils (%) (Auto) 0.1 % Basophils (%) (Auto) 0.2 % Neutrophils # (Auto) 3.8 TH/MM3 Lymphocytes # (Auto) 1.3 TH/MM3 Monocytes # (Auto) 0.1 TH/MM3 Eosinophils # (Auto) 0.0 TH/MM3 Basophils # (Auto) 0.0 TH/MM3 CBC Comment DIFF FINAL Differential Comment Prothrombin Time 12.4 SEC Prothromb Time International Ratio 1.2 RATIO Activated Partial Thromboplast Time 31.7 SEC Fibrinogen 402 mg/dL Bedside Sodium 134 MMOL/L Bedside Potassium 4.5 MMOL/L Bedside Chloride 98 MMOL/L Bedside Blood Urea Nitrogen 37 MG/DL Bedside Creatinine 0.4 MG/DL Bedside Glucose 134 MG/DL Total Creatine Kinase 269 U/L Creatine Kinase MB 17.8 NG/ML Creatine Kinase MB % 6.6 % Troponin I LESS THAN 0.02 NG/ML Blood Gas Puncture Site LT RADIAL Blood Gas Patient Temperature 98.6 Blood Gas HCO3 29 mmol/L Blood Gas Base Excess 3.9 mmol/L Blood Gas Oxygen Saturation 98 % Arterial Blood pH 7.37 Arterial Blood Partial Pressure CO2 51 mmHg Arterial Blood Partial Pressure O2 217 mmHG Arterial Blood Oxygen Content 14.1 Vol % Arterial Blood Carboxyhemoglobin 0.6 % Arterial Blood Methemoglobin 0.6 % Blood Gas Hemoglobin 9.9 G/DL Oxygen Delivery Device NASAL CANNULA Blood Gas Liter Flow 2 L/M Blood Urea Nitrogen 33 MG/DL Creatinine 0.39 MG/DL Random Glucose 60 MG/DL Total Protein 7.7 GM/DL Albumin 3.0 GM/DL Calcium Level 8.0 MG/DL Alkaline Phosphatase 436 U/L Aspartate Amino Transf (AST/SGOT) 2943 U/L Alanine Aminotransferase (ALT/SGPT) 1102 U/L Total Bilirubin 0.5 MG/DL Direct Bilirubin 0.3 MG/DL Sodium Level 135 MEQ/L Potassium Level 3.8 MEQ/L Chloride Level 100 MEQ/L Carbon Dioxide Level 29.4 MEQ/L Anion Gap 6 MEQ/L Estimat Glomerular Filtration Rate 201 ML/MIN Lactic Acid Level 1.2 mmol/L Ammonia 21 MCMOL/L Thyroid Stimulating Hormone 3rd Gen 6.220 uIU/ML Ethyl Alcohol Level LESS THAN 3 MG/DL Nasal Screen MRSA (PCR) MRSA NOT DETECTED Test 02/20/18 20:57 02/21/18 03:50 Total Creatine Kinase 407 U/L Creatine Kinase MB 24.8 NG/ML Creatine Kinase MB % 6.1 % Troponin I LESS THAN 0.02 NG/ML LESS THAN 0.02 NG/ML Salicylates Level LESS THAN 1.7 MG/DL Acetaminophen Level LESS THAN 2.0 MCG/ML Hepatitis A IgM Antibody NONREACTIVE Hepatitis B Surface Antigen NONREACTIVE Hepatitis B Core IgM Antibody NONREACTIVE Hepatitis C IgG Antibody NONREACTIVE White Blood Count 5.3 TH/MM3 Red Blood Count 3.23 MIL/MM3 Hemoglobin 9.1 GM/DL Hematocrit 28.1 % Mean Corpuscular Volume 87.1 FL Mean Corpuscular Hemoglobin 28.1 PG Mean Corpuscular Hemoglobin Concent 32.2 % Red Cell Distribution Width 19.3 % Platelet Count 117 TH/MM3 Mean Platelet Volume 8.4 FL Neutrophils (%) (Auto) 85.1 % Lymphocytes (%) (Auto) 10.6 % Monocytes (%) (Auto) 4.2 % Eosinophils (%) (Auto) 0.0 % Basophils (%) (Auto) 0.1 % Neutrophils # (Auto) 4.5 TH/MM3 Lymphocytes # (Auto) 0.6 TH/MM3 Monocytes # (Auto) 0.2 TH/MM3 Eosinophils # (Auto) 0.0 TH/MM3 Basophils # (Auto) 0.0 TH/MM3 CBC Comment DIFF FINAL Differential Comment Blood Urea Nitrogen 33 MG/DL Creatinine 0.45 MG/DL Random Glucose 56 MG/DL Total Protein 6.7 GM/DL Albumin 2.7 GM/DL Calcium Level 7.9 MG/DL Alkaline Phosphatase 324 U/L Aspartate Amino Transf (AST/SGOT) 1406 U/L Alanine Aminotransferase (ALT/SGPT) 718 U/L Total Bilirubin 0.3 MG/DL Sodium Level 138 MEQ/L Potassium Level 3.7 MEQ/L Chloride Level 104 MEQ/L Carbon Dioxide Level 27.5 MEQ/L Anion Gap 7 MEQ/L 25-Hydroxy Vitamin D Total 18.8 ng/ML Free Thyroxine 0.88 NG/DL Free Triiodothyronine (T3) pg/dL 0.88 PG/ML Thyroid Stimulating Hormone 3rd Gen 4.910 uIU/ML Assessment and Plan Problem List: (1) Bradycardia ICD Codes: R00.1 - Bradycardia, unspecified Status: Acute (2) Altered mental status ICD Codes: R41.82 - Altered mental status Status: Acute (3) Hypokalemia ICD Codes: E87.6 - Hypokalemia Status: Acute (4) Dyspnea ICD Codes: R06.00 - Dyspnea, unspecified (5) Anemia ICD Codes: D64.9 - Anemia, unspecified Status: Acute (6) Cachectic ICD Codes: R64 - Cachexia Status: Acute Assessment and Plan 1) Bradycardia Resolved Keep Atropine/pacing pads at the bedside 2) Altered mental status 3) Mental retardation 4) 2D echo pending 5) Hypothyroidism per primary team Problem Qualifiers (1) Altered mental status: Qualified Codes: R41.82 - Altered mental status, unspecified (2) Anemia: Qualified Codes: D64.9 - Anemia, unspecified Jarett Moss DO Feb 21, 2018 10:15
--- NOTE | 2018-02-21 14:12 | PD.CONS ---
HPI History of Present Illness This is a 62 year old F with PMH significant for HTN and mental retardation. Pt is awake and moving all extremities, however, nonverbal, therefore history was obtained through chart review. Per RN pt lives at home with a non-relative roommate, unsure of pts baseline mentation but she thinks it was relayed in report that pt is normally able to walk. Pt was brought in to [place] as a stroke alert yesterday after a fall with trauma to her forehead. She was found to be hypoglycemic, which was replaced. It was determined she was not a candidate for TPA given clinical presentation, head CT negative for acute findings. While in the ER and according to DIRECTOR ERP pts heart rate dropped significantly low multiple times, in the rate of the 30s. Cardiology recommending 2D echo and states might be secondary to hypoglycemia vs hypothyroidism. Our service has been consulted to evaluate pt for elevated LFTs. Currently AST-1406 ALT-718 Alk phos-324 T bili-0.3. Unsure if pts has previous history of liver issues. No previous labs to compare this to. Liver US (02/20) --> No gallstones or ductal dilatation. Right-sided medical renal disease. Trace free fluid. (Beatrice Orr) PFSH Past Medical History Dementia Hypertension Mental retardation . Past Surgical History Hysterectomy . (Beatrice Orr) Coded Allergies: No Known Allergies (Unverified Allergy, Unknown, 02/20/18) Family History Unknown, patient unable to answer questions. . Social History Unable to obtain (Betarice Orr) Review of Systems Unable to obtain (Beatrice Orr) GI Exam Vitals I&O Vital Signs Date Time Temp Pulse Resp B/P (MAP) Pulse Ox O2 Delivery O2 Flow Rate FiO2 02/21/18 08:51 94 Nasal Cannula 4.00 02/21/18 04:00 97.4 56 15 110/53 (72) 100 02/21/18 00:00 67 39 184/77 (112) 99 02/20/18 20:00 40 9 164/70 (101) 99 02/20/18 19:18 100 Nasal Cannula 4.00 02/20/18 18:15 97.2 40 11 132/64 (86) 96 02/20/18 18:00 40 02/20/18 16:57 48 18 163/75 (104) 96 Room Air 02/20/18 15:47 44 17 153/85 (107) 96 Room Air 02/20/18 14:59 42 17 157/89 (111) 100 Nasal Cannula 2.00 02/20/18 14:09 96 Nasal Cannula 2.00 02/20/18 14:06 96 Nasal Cannula 2.00 02/20/18 14:05 72 18 178/82 (114) 95 Nasal Cannula 2.00 I/O 02/20/18 02/20/18 02/20/18 02/21/18 02/21/18 02/21/18 07:00 15:00 23:00 07:00 15:00 23:00 Intake Total 1000 ml Balance 1000 ml Intake Oral 0 ml IV Total 1000 ml # Voids 5 # Bowel Movements 0 Imaging Last Impressions Liver Ultrasound 02/20/18 0000 Signed Impressions: Service Date/Time: Tuesday, February 20, 2018 18:47 - CONCLUSION: 1. No gallstones or ductal dilatation. Right-sided medical renal disease. Trace free fluid. Javier Walden MD Head CT 02/20/18 0000 Signed Impressions: Service Date/Time: Tuesday, February 20, 2018 13:57 - CONCLUSION: No acute disease. Bud Benton Jr., MD Chest X-Ray 02/20/18 0000 Signed Impressions: Service Date/Time: Tuesday, February 20, 2018 14:00 - CONCLUSION: Minimal parenchymal changes left base. Sudhakar Angel MD FACR Laboratory Test 02/20/18 14:34 02/20/18 15:15 02/20/18 18:20 02/20/18 20:57 Blood Gas Puncture Site LT RADIAL Blood Gas Patient Temperature 98.6 Blood Gas HCO3 29 mmol/L Blood Gas Base Excess 3.9 mmol/L Blood Gas Oxygen Saturation 98 % Arterial Blood pH 7.37 Arterial Blood Partial Pressure CO2 51 mmHg Arterial Blood Partial Pressure O2 217 mmHG Arterial Blood Oxygen Content 14.1 Vol % Arterial Blood Carboxyhemoglobin 0.6 % Arterial Blood Methemoglobin 0.6 % Blood Gas Hemoglobin 9.9 G/DL Oxygen Delivery Device NASAL CANNULA Blood Gas Liter Flow 2 L/M Blood Urea Nitrogen 33 MG/DL Creatinine 0.39 MG/DL Random Glucose 60 MG/DL Total Protein 7.7 GM/DL Albumin 3.0 GM/DL Calcium Level 8.0 MG/DL Alkaline Phosphatase 436 U/L Aspartate Amino Transf (AST/SGOT) 2943 U/L Alanine Aminotransferase (ALT/SGPT) 1102 U/L Total Bilirubin 0.5 MG/DL Direct Bilirubin 0.3 MG/DL Sodium Level 135 MEQ/L Potassium Level 3.8 MEQ/L Chloride Level 100 MEQ/L Carbon Dioxide Level 29.4 MEQ/L Anion Gap 6 MEQ/L Estimat Glomerular Filtration Rate 201 ML/MIN Lactic Acid Level 1.2 mmol/L Ammonia 21 MCMOL/L Thyroid Stimulating Hormone 3rd Gen 6.220 uIU/ML Ethyl Alcohol Level LESS THAN 3 MG/DL Nasal Screen MRSA (PCR) MRSA NOT DETECTED Total Creatine Kinase 407 U/L Creatine Kinase MB 24.8 NG/ML Creatine Kinase MB % 6.1 % Troponin I LESS THAN 0.02 NG/ML Salicylates Level LESS THAN 1.7 MG/DL Acetaminophen Level LESS THAN 2.0 MCG/ML Hepatitis A IgM Antibody NONREACTIVE Hepatitis B Surface Antigen NONREACTIVE Hepatitis B Core IgM Antibody NONREACTIVE Hepatitis C IgG Antibody NONREACTIVE Test 02/21/18 03:50 White Blood Count 5.3 TH/MM3 Red Blood Count 3.23 MIL/MM3 Hemoglobin 9.1 GM/DL Hematocrit 28.1 % Mean Corpuscular Volume 87.1 FL Mean Corpuscular Hemoglobin 28.1 PG Mean Corpuscular Hemoglobin Concent 32.2 % Red Cell Distribution Width 19.3 % Platelet Count 117 TH/MM3 Mean Platelet Volume 8.4 FL Neutrophils (%) (Auto) 85.1 % Lymphocytes (%) (Auto) 10.6 % Monocytes (%) (Auto) 4.2 % Eosinophils (%) (Auto) 0.0 % Basophils (%) (Auto) 0.1 % Neutrophils # (Auto) 4.5 TH/MM3 Lymphocytes # (Auto) 0.6 TH/MM3 Monocytes # (Auto) 0.2 TH/MM3 Eosinophils # (Auto) 0.0 TH/MM3 Basophils # (Auto) 0.0 TH/MM3 CBC Comment DIFF FINAL Differential Comment Blood Urea Nitrogen 33 MG/DL Creatinine 0.45 MG/DL Random Glucose 56 MG/DL Total Protein 6.7 GM/DL Albumin 2.7 GM/DL Calcium Level 7.9 MG/DL Alkaline Phosphatase 324 U/L Aspartate Amino Transf (AST/SGOT) 1406 U/L Alanine Aminotransferase (ALT/SGPT) 718 U/L Total Bilirubin 0.3 MG/DL Sodium Level 138 MEQ/L Potassium Level 3.7 MEQ/L Chloride Level 104 MEQ/L Carbon Dioxide Level 27.5 MEQ/L Anion Gap 7 MEQ/L Troponin I LESS THAN 0.02 NG/ML 25-Hydroxy Vitamin D Total 18.8 ng/ML Free Thyroxine 0.88 NG/DL Free Triiodothyronine (T3) pg/dL 0.88 PG/ML Thyroid Stimulating Hormone 3rd Gen 4.910 uIU/ML Physical Examination HEENT: Normocephalic CHEST: Even/unlabored CARDIAC: RRR ABDOMEN: Cachetic, soft, bowel sounds active EXTREMITIES: No clubbing, cyanosis, or edema. SKIN: Normal; no rash; no jaundice. STREET WORKER: Awake and moving all extremities, nonverbal (Beatrice Orr) Assessment and Plan Plan Assessment: - Elevated LFTS- Currently AST-1406 ALT-718 Alk phos-324 T bili-0.3. Unsure if pts has previous history of liver issues. No previous labs to compare this to. Liver US (02/20) --> No gallstones or ductal dilatation. Right-sided medical renal disease. Trace free fluid. Attempted to call listed contact, [place], however went straight to voicemail. Unable to obtain history from pt, she is moving all extremities, but nonverbal. Unsure of her baseline, per RN she lives with a non-relative roommate - AMS- Initially called as a stroke alert- found to be hypoglycemia- corrected- CT head negative- per neurologist not CVA Plan: - Liver VILA - MRCP when able, pt unlikely to stay still for imaging - Monitor LFTs - Avoid hepatotoxins - Will attempt to obtain further history from roommate tomorrow - Further recommendations based on clinical course and results of above Pt has been seen and examined by myself and Dr. Guzman and this note is written on her behalf (Beatrice Orr) Physician Comments seen, examined agree with above possible shock liver, Tylenol toxicity until proven otherwise-Mucomyst was initiated last night-lfts improving supplement vit d, fu rest of labs nutritional consult consider peg-patient malnourished , debilitated , deconditioning (Chanel Guzman MD) Beatrice Orr Feb 21, 2018 14:12 Chanel Guzman MD Feb 21, 2018 16:56
[2018-02-21] MEDS: LEVOTHYROXINE SODIUM 25 MCG TAB PO SCH (15:12)
[2018-02-21] MEDS: FAMOTIDINE 20 MG/2 ML VIAL IV PUSH SCH ×2 (15:13→21:00)
[2018-02-21 17:56] LABS: IRON (FE) 50 MCG/DL (50-170)
[2018-02-21 18:12] LABS: % SATURATION IRON PROFILE 27.5 % (20-50); FERRITIN 2899 NG/ML (8-252); TOTAL IRON BINDING CAPACITY 182 MCG/DL (250-450)
--- NOTE | 2018-02-21 19:28 | EKG ---
Date Performed: 02/20/2018 Time Performed: 14:17:03 PTAGE: 62 years EKG: SUPRAVENTRICULAR BRADYCARDIA POSSIBLE LEFT VENTRICULAR HYPERTROPHY POSSIBLE LATERAL MYOCARD IAL INFARCTION ABNORMAL ECG Since PREVIOUS TRACING , no significant change noted PREVIOUS TRACIN02/24/2014 12.35 DOCTOR: Mariusz Jaquez Interpretating Date/Time 02/21/2018 19:27:41
--- NOTE | 2018-02-21 19:54 | MG ---
cc: Jhon Le MD DATE OF STUDY: 02/21/2018 REQUESTING PHYSICIAN: Dr. Garrett. INDICATION FOR STUDY: An EEG was obtained on this 62-year-old patient awake and drowsy being evaluated for altered mental status. DESCRIPTION: There is lot of artifact and there is some mixture of rhythms including a lot of theta activity in the posterior head regions. There is some beta rhythms intermixed with the artifact. There is probably delta activity bilaterally and there are no distinct lateralizing features. No ictal pattern. Photic stimulation not performed. INTERPRETATION: Limited electroencephalogram study showing bilateral slowing suggestive of a moderately severe diffuse disturbance of cerebral function. No epileptiform features are present. Jhon Le MD OFC/KD , 07:09 PM , 07:54 PM
[2018-02-22] VITALS (23 sets, daily range): BP systolic 98–177; BP diastolic 48–76; PULSE 50–91; RESP 9–23; TEMP 92–96.9; O2SAT 92–100
[2018-02-22] MEDS: INSULIN NovoLIN REGULAR SUPPLEMENTAL SCALE SQ SCH ×12 (02:00→22:00)
[2018-02-22] MEDS: RESP: ALBUTEROL 2.5 MG/IPRATROPIUM 0.5 MG NEB (SCH) INH ×4 (03:49→21:35)
[2018-02-22] MEDS: CHLORHEXIDINE GLUCONATE 2 % 1 PACK (2 CLOTHS) TOP SCH (04:00)
[2018-02-22] MEDS: DEXT 5%-NACL 0.9% 1000 ML INJ 1,000 ML IV SCH ×2 (04:47→14:40)
[2018-02-22] MEDS: HEPARIN SODIUM - SQ 10,000 UNITS/ML VIAL SQ SCH ×2 (05:07→15:00)
[2018-02-22] MEDS: LEVOTHYROXINE SODIUM 25 MCG TAB PO SCH (05:11)
[2018-02-22 06:44] LABS: AUTOMATED NEUTROPHIL # 4.9 TH/MM3 (1.8-7.7); BASOPHIL % 0.1 % (0.0-2.0); HEMATOCRIT 23.7 % (35.0-46.0); HEMOGLOBIN 7.7 GM/DL (11.6-15.3); LYMPH % 12.1 % (9.0-44.0); LYMPHOCYTE # 0.7 TH/MM3 (1.0-4.8); MEAN CELL VOLUME 86.1 FL (80.0-100.0); MEAN CORPUSCULAR HEMOGLOBIN 27.9 PG (27.0-34.0); MEAN CORPUSCULAR HGB CONC 32.4 % (32.0-36.0); MONO % 0.9 % (0.0-8.0); MONOCYTE # 0.1 TH/MM3 (0-0.9); NEUT % 86.9 % (16.0-70.0); PLATELET COUNT 103 TH/MM3 (150-450); RED BLOOD COUNT 2.75 MIL/MM3 (4.00-5.30); RED CELL DISTRIBUTION WIDTH 19.3 % (11.6-17.2); WHITE BLOOD COUNT 5.7 TH/MM3 (4.0-11.0)
[2018-02-22 07:16] LABS: ALBUMIN 2.3 GM/DL (3.4-5.0); BICARBONATE 21.6 MEQ/L (21.0-32.0); CALCIUM 7.4 MG/DL (8.5-10.1); CALCIUM-PROTEIN CORRECTED 7.9 MG/DL (8.5-10.1); CREATININE 0.58 MG/DL (0.50-1.00); MAGNESIUM 1.7 MG/DL (1.5-2.5); PHOSPHORUS 3.2 MG/DL (2.5-4.9); TOTAL BILIRUBIN ADULT 0.3 MG/DL (0.2-1.0); TOTAL PROTEIN 6.1 GM/DL (6.4-8.2)
[2018-02-22] MEDS: HYDROCORTISONE SOD SUCCINATE 100 MG VIAL IV PUSH SCH ×2 (07:54→16:00)
[2018-02-22] MEDS: FAMOTIDINE 20 MG/2 ML VIAL IV PUSH SCH ×2 (07:55→21:00)
[2018-02-22] MEDS: CHOLECALCIFEROL (VIT D3) LIQ 400 UNITS/ML 50 ML BOTTLE PO SCH (07:55)
[2018-02-22] MEDS: DOCUSATE SODIUM 50 MG/SENNA 8.6 MG TAB PO SCH ×2 (07:55→21:00)
--- NOTE | 2018-02-22 10:16 | HHI.GIFU ---
Subjective Remarks Pt resting in bed Remains confused, unable to understand what she is saying No BMs documented (Beatrice Orr) Objective Vitals I&O Vital Signs Date Time Temp Pulse Resp B/P (MAP) Pulse Ox O2 Delivery O2 Flow Rate FiO2 02/22/18 08:12 100 21 02/22/18 06:00 91 02/22/18 04:00 96.4 72 18 100/48 (65) 100 02/22/18 04:00 69 02/22/18 03:51 100 21 02/22/18 02:00 51 02/22/18 02:00 51 14 100 02/22/18 01:00 58 23 99 02/22/18 00:00 54 18 118/65 (82) 100 02/22/18 00:00 54 02/21/18 23:00 53 18 186/79 (114) 95 02/21/18 22:00 49 02/21/18 22:00 49 17 02/21/18 21:00 59 34 165/108 (127) 02/21/18 20:00 50 02/21/18 20:00 50 6 131/62 (85) 02/21/18 18:00 53 02/21/18 18:00 53 12 161/72 (101) 100 02/21/18 17:00 51 02/21/18 17:00 51 18 179/76 (110) 100 02/21/18 16:00 55 02/21/18 16:00 55 18 159/71 (100) 100 02/21/18 15:00 64 02/21/18 15:00 64 20 167/72 (103) 100 02/21/18 14:00 70 02/21/18 14:00 70 27 158/70 (99) 100 02/21/18 13:00 74 27 159/89 (112) 98 02/21/18 13:00 74 02/21/18 12:00 60 02/21/18 12:00 60 12 126/59 (81) 100 02/21/18 11:00 70 02/21/18 11:00 70 12 116/53 (74) 97 I/O 02/21/18 02/21/18 02/21/18 02/22/18 02/22/18 02/22/18 07:00 15:00 23:00 07:00 15:00 23:00 Intake Total 1000 ml 1037.8 ml Output Total 300 ml Balance 1000 ml 737.8 ml Intake Oral 0 ml IV Total 1000 ml 1037.8 ml Output Urine Total 300 ml # Voids 5 5 1 # Bowel Movements 0 0 0 Laboratory Laboratory Tests Test 02/22/18 05:58 02/22/18 09:00 White Blood Count 5.7 Red Blood Count 2.75 Hemoglobin 7.7 Hematocrit 23.7 Mean Corpuscular Volume 86.1 Mean Corpuscular Hemoglobin 27.9 Mean Corpuscular Hemoglobin Concent 32.4 Red Cell Distribution Width 19.3 Platelet Count 103 Mean Platelet Volume 9.0 Neutrophils (%) (Auto) 86.9 Lymphocytes (%) (Auto) 12.1 Monocytes (%) (Auto) 0.9 Eosinophils (%) (Auto) 0.0 Basophils (%) (Auto) 0.1 Neutrophils # (Auto) 4.9 Lymphocytes # (Auto) 0.7 Monocytes # (Auto) 0.1 Eosinophils # (Auto) 0.0 Basophils # (Auto) 0.0 CBC Comment DIFF FINAL Differential Comment Blood Urea Nitrogen 29 Creatinine 0.58 Random Glucose 89 Total Protein 6.1 Albumin 2.3 Calcium Level 7.4 Phosphorus Level 3.2 Magnesium Level 1.7 Alkaline Phosphatase 233 Aspartate Amino Transf (AST/SGOT) 535 Alanine Aminotransferase (ALT/SGPT) 427 Total Bilirubin 0.3 Sodium Level 142 Potassium Level 3.7 Chloride Level 110 Carbon Dioxide Level 21.6 Anion Gap 10 Estimat Glomerular Filtration Rate 127 Protein Corrected Calcium 7.9 Imaging Last Impressions Liver Ultrasound 02/20/18 0000 Signed Impressions: Service Date/Time: Tuesday, February 20, 2018 18:47 - CONCLUSION: 1. No gallstones or ductal dilatation. Right-sided medical renal disease. Trace free fluid. Javier Walden MD Head CT 02/20/18 0000 Signed Impressions: Service Date/Time: Tuesday, February 20, 2018 13:57 - CONCLUSION: No acute disease. Bud Benton Jr., MD Chest X-Ray 02/20/18 0000 Signed Impressions: Service Date/Time: Tuesday, February 20, 2018 14:00 - CONCLUSION: Minimal parenchymal changes left base. Sudhakar Angel MD FACR Physical Exam HEENT: Normocephalic; atraumatic CHEST: Even/unlabored CARDIAC: RRR ABDOMEN: Cachectic, soft, bowel sounds active SKIN: Normal; no rash; no jaundice. 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 Unsure if pts has previous history of liver issues. No previous labs to compare this to. Liver US (02/20) --> No gallstones or ductal dilatation. Right-sided medical renal disease. Trace free fluid. Attempted to call listed contact, [place], however went straight to voicemail. Unable to obtain history from pt, she is moving all extremities, but nonverbal. Unsure of her baseline, per RN she lives with a non-relative roommate - AMS- Initially called as a stroke alert- found to be hypoglycemia- corrected- CT head negative- per neurologist not CVA (02/22) Pt remains confused. LFTs trending down. Liver VILA pending. ? shocked liver. Pt is cachectic and nutrition depleted. Pt would likely benefit from a PEG tube. Attempted to call only contacts listed Swati, at two separate numbers. She answered and quickly after hung up. This is pts non relative roommate, I am unsure if she is also the medical decision maker. Vit D replacement started. Plan: - Liver VILA pending - MRCP when able, pt unlikely to stay still for imaging - Monitor LFTs - Vit D replacement - Avoid hepatotoxins - Nutrition conult - Would benefit from PEG, unsure who medical decision maker is - Further recommendations based on clinical course and results of above Pt has been seen and examined by myself and Dr. Guzman and this note is written on her behalf (Beatrice Orr) Physician Comments may need egd/peg plus minus colonoscopy elevated ferritin-possible inflammation/ETOH? await palliative care consult conclusion (Chanel Guzman MD) Beatrice Orr Feb 22, 2018 10:16 Chanel Guzman MD Feb 22, 2018 14:21
--- NOTE | 2018-02-22 10:22 | HHI.CCPN ---
Subjective Remarks/Hospital Course Patient is a 62-year-old female with a history of hypertension, mental retardation with underlying dementia, who presented to [facility] ED via ambulance as a stroke alert. The patient is status post a fall and hit her forehead. She was found to be hypoglycemic with a blood sugar of 53 and was given 10 grams of D10 and then her sugar was 130. The patient is a very poor historian. She had a CT scan of the brain, which showed no acute disease. In addition, a chest x-ray in the ER showed minimal parenchymal changes left base. ABG was performed on 2 liter nasal cannula, which showed a pH of 7.37, CO2 51, pO2 217, bicarb 29, saturation of 98%. Most of the history was obtained from reviewing the medical records. In the ED, she was hypertensive with a systolic blood pressure 150s to 170s; however, she had intermittent bradycardia with a heart rate in the 40s. The patient is on [address] Le from neurology service was notified regarding the stroke alert, and given her clinical presentation, patient was not a candidate for TPA. 02/21 Patient is on 4L oxygen was hypotensive overnight. Afebrile. 02/22 Patient seems more awake today, hemodynamics overall better. Objective Vital Signs Date Time Temp Pulse Resp B/P (MAP) Pulse Ox O2 Delivery O2 Flow Rate FiO2 02/22/18 08:12 100 21 02/22/18 06:00 91 02/22/18 04:00 96.4 18 100/48 (65) 02/21/18 08:51 Nasal Cannula 4.00 Intake and Output 02/22/18 02/22/18 02/23/18 08:00 16:00 00:00 Intake Total 1037.8 ml Output Total 300 ml Balance 737.8 ml Result Diagram: 02/22/18 0558 02/22/18 0558 Other Results Laboratory Tests Test 02/22/18 05:58 02/22/18 09:00 White Blood Count 5.7 TH/MM3 Red Blood Count 2.75 MIL/MM3 Hemoglobin 7.7 GM/DL Hematocrit 23.7 % Mean Corpuscular Volume 86.1 FL Mean Corpuscular Hemoglobin 27.9 PG Mean Corpuscular Hemoglobin Concent 32.4 % Red Cell Distribution Width 19.3 % Platelet Count 103 TH/MM3 Mean Platelet Volume 9.0 FL Neutrophils (%) (Auto) 86.9 % Lymphocytes (%) (Auto) 12.1 % Monocytes (%) (Auto) 0.9 % Eosinophils (%) (Auto) 0.0 % Basophils (%) (Auto) 0.1 % Neutrophils # (Auto) 4.9 TH/MM3 Lymphocytes # (Auto) 0.7 TH/MM3 Monocytes # (Auto) 0.1 TH/MM3 Eosinophils # (Auto) 0.0 TH/MM3 Basophils # (Auto) 0.0 TH/MM3 CBC Comment DIFF FINAL Differential Comment Blood Urea Nitrogen 29 MG/DL Creatinine 0.58 MG/DL Random Glucose 89 MG/DL Total Protein 6.1 GM/DL Albumin 2.3 GM/DL Calcium Level 7.4 MG/DL Phosphorus Level 3.2 MG/DL Magnesium Level 1.7 MG/DL Alkaline Phosphatase 233 U/L Aspartate Amino Transf (AST/SGOT) 535 U/L Alanine Aminotransferase (ALT/SGPT) 427 U/L Total Bilirubin 0.3 MG/DL Sodium Level 142 MEQ/L Potassium Level 3.7 MEQ/L Chloride Level 110 MEQ/L Carbon Dioxide Level 21.6 MEQ/L Anion Gap 10 MEQ/L Estimat Glomerular Filtration Rate 127 ML/MIN Protein Corrected Calcium 7.9 MG/DL Imaging Last Impressions Liver Ultrasound 02/20/18 0000 Signed Impressions: Service Date/Time: Tuesday, February 20, 2018 18:47 - CONCLUSION: 1. No gallstones or ductal dilatation. Right-sided medical renal disease. Trace free fluid. Javier Walden MD Head CT 02/20/18 0000 Signed Impressions: Service Date/Time: Tuesday, February 20, 2018 13:57 - CONCLUSION: No acute disease. Bud Benton Jr., MD Chest X-Ray 02/20/18 0000 Signed Impressions: Service Date/Time: Tuesday, February 20, 2018 14:00 - CONCLUSION: Minimal parenchymal changes left base. Sudhakar Angel MD FACR Objective Remarks GENERAL: Patient is 62 yo lying in bed in no acute resp distress SKIN: Warm and dry. HEAD: Normocephalic. EYES: No scleral icterus. No injection or drainage. NECK: Supple, trachea midline. No JVD or lymphadenopathy. CARDIOVASCULAR: Regular rate and rhythm without murmurs, gallops, or rubs. RESPIRATORY: Breath sounds equal bilaterally. No accessory muscle use. GASTROINTESTINAL: Abdomen soft, non-tender, nondistended. MUSCULOSKELETAL: No cyanosis, or edema. Neuro: More awake A/P Assessment and Plan 1. Respiratory insufficiency. 2. Altered mental status. 3. Status post hypoglycemic episode. 4. Bradycardia. 5. History of hypertension. 6. Mental retardation. 7 Elevated LFT's 8 Anemia Plan Neuro: Monitor neuro status closely and avoid any sedatives CT brain in ED negative for acute intracranial process. Tylenol level < 2, ASA level <1.7, Ammonia level : 21 neuro is following- Dr. Le EEG: bilateral slowing suggestive of a moderately severe diffuse disturbance of cerebral function. No epileptiform features are present Pulm: Continue with oxygen to maintain sats above 92%. Bronchodilators, aspiration precautions CV: Monitor HR and BP keep MAP>65 mmHg. Lactic acid 1.2, give NS 1Liter bolus, continue with IVF Trop negative x 3, for 2D echo today, cards is following- Dr. Moss : Monitor renal function, I's and O's and electrolyte replacement per protocol. on D5 NS at 84 mL an hour. GI: on Pepcid for GI prophylaxis, speech eval if she fails will insert NGT for nutritional support. Might benefit from PEG tube placement as patient is severely malnourished Monitor LFT's, ( trending down), Hepatitis profile is negative US liver: No gallstones or ductal dilatation. Right-sided medical renal disease. Trace free fluid. Tylenol level < 2. GI is following for MRCP when stable. ID: Monitor for signs infections, which include fever and WBC. Endo: SSI with Accu-Cheks q.4 , on D5NS@84ml/hr, HC 100mg IV Q8 TSH: 4.9, FT3:0.88, FT4:0.88,, Continue Synthroid 25mcg daily Heme: Monitor CBC. Recheck H/H GI prophylaxis with Pepcid and DVT prophylaxis with SCDs and heparin subQ. Palliative care is following Level 2 Venu Garrett MD Feb 22, 2018 10:22
--- NOTE | 2018-02-22 11:23 | PD.CARD.PN ---
Subjective Subjective Remarks No further bradycardia noted More awake today, still confused, unable to determine what she is saying Objective Medications Current Medications Medications (Trade) Dose Ordered Sig/Arabella Route Start Time Stop Time Status Last Admin (Pepcid Inj) 20 mg Q12HR IV PUSH 02/20/18 21:00 02/22/18 07:55 (Duoneb Neb) 1 ampule Q6HR NEB INH 02/20/18 16:00 02/22/18 09:02 (Duoneb Neb) 1 ampule Q2HR NEB PRN INH 02/20/18 14:45 (Heparin Inj) 5,000 units Q12H SQ 02/20/18 15:00 02/22/18 05:07 Miscellaneous Information 1 Q361D XX 02/20/18 14:45 (Chlorhexidine 2% Cloth) 3 pack Taper DAILY@04 TOP 02/21/18 04:00 02/17/19 03:59 02/22/18 04:00 (Chlorhexidine 2% Cloth) 3 pack UNSCH PRN TOP 02/20/18 14:45 (Lay-Colace) 1 tab BID PO 02/20/18 21:00 02/22/18 07:55 (Milk Of Magnesia Liq) 30 ml Q12H PRN PO 02/20/18 14:45 (Senokot) 17.2 mg Q12H PRN PO 02/20/18 14:45 (Dulcolax Supp) 10 mg DAILY PRN RECTAL 02/20/18 14:45 (Lactulose Liq) 30 ml DAILY PRN PO 02/20/18 14:45 Dextrose/Sodium Chloride 1,000 ml @ 84 mls/hr [id number] IV 02/20/18 15:00 02/22/18 04:47 (D50w (Vial) Inj) 50 ml UNSCH PRN IV PUSH 02/20/18 14:45 02/21/18 07:19 (Glucagon Inj) 1 mg UNSCH PRN OTHER 02/20/18 14:45 (NovoLIN R SUPPLEMENTAL SCALE) 1 Q2HR SQ 02/20/18 16:00 (SoluCORTEF INJ) 100 mg Q8H IV PUSH 02/21/18 08:00 02/22/18 07:54 (Synthroid) 25 mcg DAILY@0600 PO 02/21/18 15:00 02/22/18 05:11 (Vitamin D Liq) 2,000 units DAILY PO 02/22/18 09:00 02/22/18 07:55 Calcium Gluconate 1 gm/Sodium Chloride 110 ml @ 110 mls/hr ONCE ONCE IV 02/22/18 12:00 02/22/18 12:59 Vital Signs / I&O Vital Signs Date Time Temp Pulse Resp B/P (MAP) Pulse Ox O2 Delivery O2 Flow Rate FiO2 02/22/18 08:12 100 21 02/22/18 06:00 91 02/22/18 04:00 96.4 72 18 100/48 (65) 100 02/22/18 04:00 69 02/22/18 03:51 100 21 02/22/18 02:00 51 02/22/18 02:00 51 14 100 02/22/18 01:00 58 23 99 02/22/18 00:00 54 18 118/65 (82) 100 02/22/18 00:00 54 02/21/18 23:00 53 18 186/79 (114) 95 02/21/18 22:00 49 02/21/18 22:00 49 17 02/21/18 21:00 59 34 165/108 (127) 02/21/18 20:00 50 02/21/18 20:00 50 6 131/62 (85) 02/21/18 18:00 53 02/21/18 18:00 53 12 161/72 (101) 100 02/21/18 17:00 51 02/21/18 17:00 51 18 179/76 (110) 100 02/21/18 16:00 55 02/21/18 16:00 55 18 159/71 (100) 100 02/21/18 15:00 64 02/21/18 15:00 64 20 167/72 (103) 100 02/21/18 14:00 70 02/21/18 14:00 70 27 158/70 (99) 100 02/21/18 13:00 74 27 159/89 (112) 98 02/21/18 13:00 74 02/21/18 12:00 60 02/21/18 12:00 60 12 126/59 (81) 100 I/O 02/21/18 02/21/18 02/21/18 02/22/18 02/22/18 02/22/18 07:00 15:00 23:00 07:00 15:00 23:00 Intake Total 1000 ml 1037.8 ml Output Total 300 ml Balance 1000 ml 737.8 ml Intake Oral 0 ml IV Total 1000 ml 1037.8 ml Output Urine Total 300 ml # Voids 5 5 1 # Bowel Movements 0 0 0 Physical Exam GENERAL: NAD SKIN: Warm and dry. HEAD: Atraumatic. Normocephalic. EYES: Pupils equal and round. No scleral icterus. No injection or drainage. ENT: No nasal bleeding or discharge. Mucous membranes pink and moist. NECK: Trachea midline. No JVD. CARDIOVASCULAR: Regular rate and rhythm. RESPIRATORY: No accessory muscle use. Clear to auscultation. Breath sounds equal bilaterally. GASTROINTESTINAL: Abdomen soft, non-tender, nondistended. Hepatic and splenic margins not palpable. MUSCULOSKELETAL: Upper extremities contracted NEUROLOGICAL: No obvious focal defects Laboratory Laboratory Tests Test 02/22/18 05:58 02/22/18 09:00 White Blood Count 5.7 TH/MM3 Red Blood Count 2.75 MIL/MM3 Hemoglobin 7.7 GM/DL Hematocrit 23.7 % Mean Corpuscular Volume 86.1 FL Mean Corpuscular Hemoglobin 27.9 PG Mean Corpuscular Hemoglobin Concent 32.4 % Red Cell Distribution Width 19.3 % Platelet Count 103 TH/MM3 Mean Platelet Volume 9.0 FL Neutrophils (%) (Auto) 86.9 % Lymphocytes (%) (Auto) 12.1 % Monocytes (%) (Auto) 0.9 % Eosinophils (%) (Auto) 0.0 % Basophils (%) (Auto) 0.1 % Neutrophils # (Auto) 4.9 TH/MM3 Lymphocytes # (Auto) 0.7 TH/MM3 Monocytes # (Auto) 0.1 TH/MM3 Eosinophils # (Auto) 0.0 TH/MM3 Basophils # (Auto) 0.0 TH/MM3 CBC Comment DIFF FINAL Differential Comment Blood Urea Nitrogen 29 MG/DL Creatinine 0.58 MG/DL Random Glucose 89 MG/DL Total Protein 6.1 GM/DL Albumin 2.3 GM/DL Calcium Level 7.4 MG/DL Phosphorus Level 3.2 MG/DL Magnesium Level 1.7 MG/DL Alkaline Phosphatase 233 U/L Aspartate Amino Transf (AST/SGOT) 535 U/L Alanine Aminotransferase (ALT/SGPT) 427 U/L Total Bilirubin 0.3 MG/DL Sodium Level 142 MEQ/L Potassium Level 3.7 MEQ/L Chloride Level 110 MEQ/L Carbon Dioxide Level 21.6 MEQ/L Anion Gap 10 MEQ/L Estimat Glomerular Filtration Rate 127 ML/MIN Protein Corrected Calcium 7.9 MG/DL Assessment and Plan Problem List: (1) Bradycardia ICD Codes: R00.1 - Bradycardia, unspecified Status: Acute (2) Altered mental status ICD Codes: R41.82 - Altered mental status Status: Acute (3) Hypokalemia ICD Codes: E87.6 - Hypokalemia Status: Acute (4) Dyspnea ICD Codes: R06.00 - Dyspnea, unspecified (5) Anemia ICD Codes: D64.9 - Anemia, unspecified Status: Acute (6) Cachectic ICD Codes: R64 - Cachexia Status: Acute Assessment and Plan 1) Bradycardia Resolved Keep Atropine/pacing pads at the bedside 2) Altered mental status Per primary team, unsure what baseline is at this point 3) Mental retardation 4) 2D echo pending 5) Hypothyroidism per primary team 6) Malnutrition/cachexia Problem Qualifiers (1) Altered mental status: Qualified Codes: R41.82 - Altered mental status, unspecified (2) Anemia: Qualified Codes: D64.9 - Anemia, unspecified Jarett Moss DO Feb 22, 2018 11:23
[2018-02-22] MEDS ORDERED: CALCIUM GLUCONATE INJ 1 GM in SODIUM CHLORIDE 0.9% INJ 100 ML IV ONE (12:00)
[2018-02-22 14:12] LABS: HEMATOCRIT 27.7 % (35.0-46.0)
[2018-02-23] VITALS (28 sets, daily range): BP systolic 107–210; BP diastolic 52–121; PULSE 47–84; RESP 10–32; O2SAT 99–100
[2018-02-23] MEDS: HYDROCORTISONE SOD SUCCINATE 100 MG VIAL IV PUSH SCH ×3 (02:22→17:37)
[2018-02-23] MEDS: DEXT 5%-NACL 0.9% 1000 ML INJ 1,000 ML IV SCH (02:35)
[2018-02-23] MEDS: HEPARIN SODIUM - SQ 10,000 UNITS/ML VIAL SQ SCH ×2 (03:00→12:01)
[2018-02-23] MEDS: CHLORHEXIDINE GLUCONATE 2 % 1 PACK (2 CLOTHS) TOP SCH (04:00)
[2018-02-23] MEDS: INSULIN NovoLIN REGULAR SUPPLEMENTAL SCALE SQ SCH ×4 (04:00→16:00)
[2018-02-23 04:02] LABS: AUTOMATED NEUTROPHIL # 5.4 TH/MM3 (1.8-7.7); BASOPHIL % 0.3 % (0.0-2.0); HEMATOCRIT 23.8 % (35.0-46.0); HEMOGLOBIN 7.7 GM/DL (11.6-15.3); LYMPH % 16.8 % (9.0-44.0); LYMPHOCYTE # 1.1 TH/MM3 (1.0-4.8); MEAN CELL VOLUME 87.2 FL (80.0-100.0); MEAN CORPUSCULAR HGB CONC 32.1 % (32.0-36.0); MEAN PLATELET VOLUME 9.2 FL (7.0-11.0); MONO % 3.1 % (0.0-8.0); MONOCYTE # 0.2 TH/MM3 (0-0.9); NEUT % 79.8 % (16.0-70.0); PLATELET COUNT 89 TH/MM3 (150-450); RED BLOOD COUNT 2.73 MIL/MM3 (4.00-5.30); RED CELL DISTRIBUTION WIDTH 19.2 % (11.6-17.2); WHITE BLOOD COUNT 6.7 TH/MM3 (4.0-11.0)
[2018-02-23 04:23] LABS: ALBUMIN 2.3 GM/DL (3.4-5.0); ALT (GPT) 340 U/L (10-53); AST (GOT) 311 U/L (15-37); BICARBONATE 21.3 MEQ/L (21.0-32.0); BLOOD UREA NITROGEN 31 MG/DL (7-18); CALCIUM 7.8 MG/DL (8.5-10.1); CHLORIDE 114 MEQ/L (98-107); CREATININE 0.68 MG/DL (0.50-1.00); GLOMERULAR FILTRATION RATE 106 ML/MIN (>89); GLUCOSE,RANDOM 62 MG/DL (74-106); MAGNESIUM 1.7 MG/DL (1.5-2.5); SODIUM (NA) 143 MEQ/L (136-145)
[2018-02-23 04:25] LABS: ALKALINE PHOSPHATASE 199 U/L (45-117); TOTAL BILIRUBIN ADULT 0.3 MG/DL (0.2-1.0)
[2018-02-23] MEDS: RESP: ALBUTEROL 2.5 MG/IPRATROPIUM 0.5 MG NEB (SCH) INH ×4 (04:53→19:47)
[2018-02-23 05:17] LABS: OVALOCYTES 1+ (NORMAL)
[2018-02-23] MEDS: LEVOTHYROXINE SODIUM 25 MCG TAB PO SCH (06:49)
[2018-02-23] MEDS: DEXTROSE 50% IN WATER 50 ML VIAL(D50) IV PUSH PRN (06:49)
[2018-02-23] MEDS: DOCUSATE SODIUM 50 MG/SENNA 8.6 MG TAB PO SCH ×2 (09:00→21:00)
[2018-02-23] MEDS: CHOLECALCIFEROL (VIT D3) LIQ 400 UNITS/ML 50 ML BOTTLE PO SCH (09:00)
[2018-02-23] MEDS: FAMOTIDINE 20 MG/2 ML VIAL IV PUSH SCH ×2 (09:03→21:00)
[2018-02-23] MEDS ORDERED: LEVOTHYROXINE SODIUM 100 MCG VIAL IV PUSH ONE (11:00)
--- NOTE | 2018-02-23 11:12 | HHI.CCPN ---
Subjective Remarks/Hospital Course Patient is a 62-year-old female with a history of hypertension, mental retardation with underlying dementia, who presented to [facility] ED via ambulance as a stroke alert. The patient is status post a fall and hit her forehead. She was found to be hypoglycemic with a blood sugar of 53 and was given 10 grams of D10 and then her sugar was 130. The patient is a very poor historian. She had a CT scan of the brain, which showed no acute disease. In addition, a chest x-ray in the ER showed minimal parenchymal changes left base. ABG was performed on 2 liter nasal cannula, which showed a pH of 7.37, CO2 51, pO2 217, bicarb 29, saturation of 98%. Most of the history was obtained from reviewing the medical records. In the ED, she was hypertensive with a systolic blood pressure 150s to 170s; however, she had intermittent bradycardia with a heart rate in the 40s. The patient is on [address] Le from neurology service was notified regarding the stroke alert, and given her clinical presentation, patient was not a candidate for TPA. 02/21 Patient is on 4L oxygen was hypotensive overnight. Afebrile. 02/22 Patient seems more awake today, hemodynamics overall better. 02/23 No events overnight, hypothermic Objective Vital Signs Date Time Temp Pulse Resp B/P (MAP) Pulse Ox O2 Delivery O2 Flow Rate FiO2 02/23/18 06:00 60 02/23/18 04:00 97.7 10 132/61 (84) 100 02/22/18 21:37 21 02/21/18 08:51 Nasal Cannula 4.00 Result Diagram: 02/23/18 0330 02/23/18 0330 Other Results Laboratory Tests Test 02/22/18 13:26 02/23/18 03:30 Hemoglobin 9.0 GM/DL 7.7 GM/DL Hematocrit 27.7 % 23.8 % White Blood Count 6.7 TH/MM3 Red Blood Count 2.73 MIL/MM3 Mean Corpuscular Volume 87.2 FL Mean Corpuscular Hemoglobin 28.0 PG Mean Corpuscular Hemoglobin Concent 32.1 % Red Cell Distribution Width 19.2 % Platelet Count 89 TH/MM3 Mean Platelet Volume 9.2 FL Neutrophils (%) (Auto) 79.8 % Lymphocytes (%) (Auto) 16.8 % Monocytes (%) (Auto) 3.1 % Eosinophils (%) (Auto) 0.0 % Basophils (%) (Auto) 0.3 % Neutrophils # (Auto) 5.4 TH/MM3 Lymphocytes # (Auto) 1.1 TH/MM3 Monocytes # (Auto) 0.2 TH/MM3 Eosinophils # (Auto) 0.0 TH/MM3 Basophils # (Auto) 0.0 TH/MM3 CBC Comment AUTO DIFF Differential Comment AUTO DIFF CONFIRMED Platelet Estimate LOW Platelet Morphology Comment NORMAL Ovalocytes 1+ Blood Urea Nitrogen 31 MG/DL Creatinine 0.68 MG/DL Random Glucose 62 MG/DL Total Protein 6.0 GM/DL Albumin 2.3 GM/DL Calcium Level 7.8 MG/DL Phosphorus Level 3.0 MG/DL Magnesium Level 1.7 MG/DL Alkaline Phosphatase 199 U/L Aspartate Amino Transf (AST/SGOT) 311 U/L Alanine Aminotransferase (ALT/SGPT) 340 U/L Total Bilirubin 0.3 MG/DL Sodium Level 143 MEQ/L Potassium Level 3.6 MEQ/L Chloride Level 114 MEQ/L Carbon Dioxide Level 21.3 MEQ/L Anion Gap 8 MEQ/L Estimat Glomerular Filtration Rate 106 ML/MIN Imaging Last Impressions Liver Ultrasound 02/20/18 0000 Signed Impressions: Service Date/Time: Tuesday, February 20, 2018 18:47 - CONCLUSION: 1. No gallstones or ductal dilatation. Right-sided medical renal disease. Trace free fluid. Jvaier Walden MD Head CT 02/20/18 0000 Signed Impressions: Service Date/Time: Tuesday, February 20, 2018 13:57 - CONCLUSION: No acute disease. Bud Benton Jr., MD Chest X-Ray 02/20/18 0000 Signed Impressions: Service Date/Time: Tuesday, February 20, 2018 14:00 - CONCLUSION: Minimal parenchymal changes left base. Sudhakar Angel MD FACR Objective Remarks GENERAL: Patient is 62 yo lying in bed in no acute resp distress SKIN: Warm and dry. HEAD: Normocephalic. EYES: No scleral icterus. No injection or drainage. NECK: Supple, trachea midline. No JVD or lymphadenopathy. CARDIOVASCULAR: Regular rate and rhythm without murmurs, gallops, or rubs. RESPIRATORY: Breath sounds equal bilaterally. No accessory muscle use. GASTROINTESTINAL: Abdomen soft, non-tender, nondistended. MUSCULOSKELETAL: No cyanosis, or edema. Neuro: More awake A/P Assessment and Plan 1. Respiratory insufficiency. 2. Altered mental status. 3. Status post hypoglycemic episode. 4. Bradycardia. 5. History of hypertension. 6. Mental retardation. 7 Elevated LFT's 8 Anemia Plan Neuro: Monitor neuro status closely and avoid any sedatives CT brain in ED negative for acute intracranial process. Tylenol level < 2, ASA level <1.7, Ammonia level : 21 neuro is following- Dr. Le EEG: bilateral slowing suggestive of a moderately severe diffuse disturbance of cerebral function. No epileptiform features are present Pulm: Continue with oxygen to maintain sats above 92%. Bronchodilators, aspiration precautions CV: Monitor HR and BP keep MAP>65 mmHg. Lactic acid 1.2, Trop negative x 3, for 2D echo today, cards is following- Dr. Moss : Monitor renal function, I's and O's and electrolyte replacement per protocol. Change IVF D10 @50ml/hr GI: on Pepcid for GI prophylaxis, speech eval if she fails will insert NGT for nutritional support. Might benefit from PEG tube placement as patient is severely malnourished Monitor LFT's, ( trending down), Hepatitis profile is negative US liver: No gallstones or ductal dilatation. Right-sided medical renal disease. Trace free fluid. Tylenol level < 2. GI is following for MRCP when stable. ID: Monitor for signs infections, which include fever and WBC. Endo: SSI with Accu-Cheks q.4 , on D10NS@50ml/hr, HC 100mg IV Q8 TSH: 4.9, FT3:0.88, FT4:0.88,, Change Synthroid 25mcg IV daily Heme: Monitor CBC. Recheck H/H GI prophylaxis with Pepcid and DVT prophylaxis with SCDs, hold heparin subQ given anemia and Hemoccult positive Palliative care is following Level 2 Venu Garrett MD Feb 23, 2018 11:12
[2018-02-23 12:11] LABS: AUTOMATED NEUTROPHIL # 4.9 TH/MM3 (1.8-7.7); BASOPHIL % 0.2 % (0.0-2.0); HEMOGLOBIN 7.8 GM/DL (11.6-15.3); LYMPH % 8.1 % (9.0-44.0); LYMPHOCYTE # 0.4 TH/MM3 (1.0-4.8); MEAN CELL VOLUME 86.6 FL (80.0-100.0); MEAN CORPUSCULAR HEMOGLOBIN 27.9 PG (27.0-34.0); MEAN CORPUSCULAR HGB CONC 32.3 % (32.0-36.0); MEAN PLATELET VOLUME 8.6 FL (7.0-11.0); MONO % 1.1 % (0.0-8.0); MONOCYTE # 0.1 TH/MM3 (0-0.9); NEUT % 90.6 % (16.0-70.0); PLATELET COUNT 103 TH/MM3 (150-450); RED BLOOD COUNT 2.78 MIL/MM3 (4.00-5.30); RED CELL DISTRIBUTION WIDTH 19.2 % (11.6-17.2); WHITE BLOOD COUNT 5.4 TH/MM3 (4.0-11.0)
[2018-02-23] MEDS: SODIUM CHLORIDE 23.4% INJ 154 MEQ in DEXTROSE 10% INJ 1,000 ML IV SCH (12:17)
--- NOTE | 2018-02-23 12:57 | HHI.GIFU ---
Subjective Remarks Randomly opens eyes Anxiety noted, 4. restraints Altered mental status continues Afebrile (Claudia Rodriguez) Objective Vitals I&O Vital Signs Date Time Temp Pulse Resp B/P (MAP) Pulse Ox O2 Delivery O2 Flow Rate FiO2 02/23/18 12:30 95.0 59 127/60 (82) 100 02/23/18 12:00 94.5 60 129/59 (82) 100 02/23/18 11:30 94.3 58 136/63 (87) 100 02/23/18 11:00 94.1 47 130/59 (82) 100 02/23/18 10:30 94.3 58 172/89 (116) 02/23/18 10:00 94.5 55 160/71 (100) 02/23/18 09:30 94.6 56 160/71 (100) 02/23/18 09:00 94.8 54 16 166/77 (106) 02/23/18 08:39 95.2 59 14 172/74 (106) 02/23/18 08:30 92.8 64 26 210/121 (150) 02/23/18 08:01 95.5 64 18 177/80 (112) 02/23/18 08:00 95.5 80 32 177/80 (112) 02/23/18 06:00 60 02/23/18 04:00 97.7 68 10 132/61 (84) 100 02/23/18 04:00 68 02/23/18 02:00 78 02/23/18 00:00 68 02/23/18 00:00 95.7 68 10 107/52 (70) 100 02/22/18 22:00 50 02/22/18 21:37 95 21 02/22/18 20:00 51 02/22/18 20:00 92.0 51 9 161/70 (100) 02/22/18 18:00 66 10 143/65 (91) 02/22/18 18:00 66 02/22/18 17:00 54 12 164/72 (102) 02/22/18 17:00 54 02/22/18 16:00 51 20 161/74 (103) 02/22/18 16:00 51 02/22/18 15:00 53 02/22/18 15:00 53 10 173/74 (107) 02/22/18 14:00 58 02/22/18 14:00 58 11 165/74 (104) 02/22/18 13:00 51 02/22/18 13:00 51 11 143/67 (92) I/O 02/22/18 02/22/18 02/22/18 02/23/18 02/23/18 02/23/18 07:00 15:00 23:00 07:00 15:00 23:00 Intake Total 1037.8 ml Output Total 300 ml Balance 737.8 ml IV Total 1037.8 ml Output Urine Total 300 ml # Voids 1 3 1 # Bowel Movements 0 1 1 Laboratory Laboratory Tests Test 02/22/18 13:26 02/23/18 03:30 02/23/18 11:43 Hemoglobin 9.0 7.7 7.8 Hematocrit 27.7 23.8 24.0 White Blood Count 6.7 5.4 Red Blood Count 2.73 2.78 Mean Corpuscular Volume 87.2 86.6 Mean Corpuscular Hemoglobin 28.0 27.9 Mean Corpuscular Hemoglobin Concent 32.1 32.3 Red Cell Distribution Width 19.2 19.2 Platelet Count 89 103 Mean Platelet Volume 9.2 8.6 Neutrophils (%) (Auto) 79.8 90.6 Lymphocytes (%) (Auto) 16.8 8.1 Monocytes (%) (Auto) 3.1 1.1 Eosinophils (%) (Auto) 0.0 0.0 Basophils (%) (Auto) 0.3 0.2 Neutrophils # (Auto) 5.4 4.9 Lymphocytes # (Auto) 1.1 0.4 Monocytes # (Auto) 0.2 0.1 Eosinophils # (Auto) 0.0 0.0 Basophils # (Auto) 0.0 0.0 CBC Comment AUTO DIFF DIFF FINAL Differential Comment AUTO DIFF CONFIRMED Platelet Estimate LOW Platelet Morphology Comment NORMAL Ovalocytes 1+ Blood Urea Nitrogen 31 Creatinine 0.68 Random Glucose 62 Total Protein 6.0 Albumin 2.3 Calcium Level 7.8 Phosphorus Level 3.0 Magnesium Level 1.7 Alkaline Phosphatase 199 Aspartate Amino Transf (AST/SGOT) 311 Alanine Aminotransferase (ALT/SGPT) 340 Total Bilirubin 0.3 Sodium Level 143 Potassium Level 3.6 Chloride Level 114 Carbon Dioxide Level 21.3 Anion Gap 8 Estimat Glomerular Filtration Rate 106 Date/Time Source Procedure Growth Status 02/23/18 09:13 Stool Stool Stool Occult Blood (NAVNEET) - Final HEMOCCULT POSITIVE Complete Imaging Last Impressions Liver Ultrasound 02/20/18 0000 Signed Impressions: Service Date/Time: Tuesday, February 20, 2018 18:47 - CONCLUSION: 1. No gallstones or ductal dilatation. Right-sided medical renal disease. Trace free fluid. Javier Walden MD Head CT 02/20/18 0000 Signed Impressions: Service Date/Time: Tuesday, February 20, 2018 13:57 - CONCLUSION: No acute disease. Bud Benton Jr., MD Chest X-Ray 02/20/18 0000 Signed Impressions: Service Date/Time: Tuesday, February 20, 2018 14:00 - CONCLUSION: Minimal parenchymal changes left base. Sudhakar Angel MD FACR Physical Exam HEENT: Normocephalic; atraumatic CHEST: Even/unlabored at rest CARDIAC: RRR ABDOMEN: Cachectic,, abdomen flat, he may CAD soft, bowel sounds active SKIN: Dry, ; no rash; no jaundice. VENEER MATCHER: Awake, confused , 4. soft restraints (Bailey,Claudia OLEARY) Assessment and Plan Plan Assessment: - Elevated LFTS- Currently [id number] ALT-718 Alk phos-324 T bili-0.3. Unsure if pts has previous history of liver issues. No previous labs to compare this to. Liver US (02/20) --> No gallstones or ductal dilatation. Right-sided medical renal disease. Trace free fluid. Attempted to call listed contact, Crowley, however went straight to voicemail. Unable to obtain history from pt, she is moving all extremities, but nonverbal. Unsure of her baseline, per RN she lives with a non-relative roommate - AMS- Initially called as a stroke alert- found to be hypoglycemia- corrected- CT head negative- per neurologist not CVA (02/22) Pt remains confused. LFTs trending down. Liver VILA pending. ? shocked liver. Pt is cachectic and nutrition depleted. Pt would likely benefit from a PEG tube. Attempted to call only contacts listed Crowley, at two separate numbers. She answered and quickly after hung up. This is pts non relative roommate, I am unsure if she is also the medical decision maker. Vit D replacement started. 02/23/18, patient continues with altered mental status, palliative care following CODE STATUS full code full aggressive care. Currently no nutritional support, questionable decision maker involvement. Plan: - Liver VILA pending -NG tube, start Jevity 1.5 trickle feeds 10 cc an hour - Monitor LFTs - Vit D replacement - Avoid hepatotoxins - Nutrition conult pending - Would benefit from PEG, unsure who medical decision maker is - Further recommendations based on clinical course and results of above Pt has been seen and examined by myself and Dr. Spence and this note is written on his behalf (Claudia Rodriguez) Physician Comments Patient seen and examined Agree with above Continue with current supportive care Monitor labs Most likely cause at this point for this quickly resolving transaminitis is shocked liver (Raffaele Spence MD) Claudia Rodriguez Feb 23, 2018 12:57 Raffaele Spence MD Feb 23, 2018 20:50
--- NOTE | 2018-02-23 13:23 | ECHRPT ---
Indication: BRADYCARDIA CONCLUSIONS The left ventricular systolic function is zdhdujti-sg-[id number] reduced with an estimated ejection fra ction in the range of 35-40%. Inferior wall hypokinesis. Normal left ventricular size. Wall thickness is normal. There is global left ventricular dysfunction. Iovw-go-fhopdtub mitral valve regurgitation. There is mild tricuspid valve regurgitation. The estimated pulmonary arterial pressure is 42.3 mmHg. BP: 110 / 53 HR: 72 Rhythm: Sinus MEASUREMENTS (Male / Female) Normal Values Technical Quality:Excellent 2D ECHO LV Diastolic Diameter PLAX 4.6 cm 4.2 - 5.9 / 3.9 - 5.3 cm LV Systolic Diameter PLAX 3.9 cm IVS Diastolic Thickness 1.1 cm 0.6 - 1.0 / 0.6 - 0.9 cm LVPW Diastolic Thickness 1.0 cm 0.6 - 1.0 / 0.6 - 0.9 cm LV Relative Wall Thickness 0.5 RV Internal Dim ED PLAX 2.2 cm LVOT Diameter 1.6 cm LA Systolic Diameter LX 3.7 cm 3.0 - 4.0 / 2.7 - 3.8 cm LV Ejection Fraction MOD 4C 31.0 % LV Cardiac Index MOD 4C 1701.1 cm/minm LV Ejection Fraction 4C AL 32.1 % LV Cardiac Index 4C AL 1821.8 cm/minm M-MODE Aortic Root Diameter MM 2.2 cm LA Systolic Diameter MM 3.4 cm LA Ao Ratio MM 1.5 AV Cusp Separation MM 1.2 cm DOPPLER AV Peak Velocity 120.0 cm/s AV Peak Gradient 5.8 mmHg LVOT Peak Velocity 94.8 cm/s LVOT Peak Gradient 3.6 mmHg AV Area Cont Eq pk 1.6 cm MV Area PHT 2.6 cm Mitral E Point Velocity 59.2 cm/s Mitral A Point Velocity 92.3 cm/s Mitral E to A Ratio 0.6 LV E' Lateral Velocity 6.5 cm/s Mitral E to LV E' Lateral Ratio 9.1 LV E' Septal Velocity 4.4 cm/s Mitral E to LV E' Septal Ratio 13.5 TR Peak Velocity 284.0 cm/s TR Peak Gradient 32.3 mmHg Right Atrial Pressure 10.0 mmHg Pulmonary Artery Systolic Pressu 42.3 mmHg Right Ventricular Systolic Press 42.3 mmHg PV Peak Velocity 65.2 cm/s PV Peak Gradient 1.7 mmHg FINDINGS LEFT VENTRICLE The left ventricular systolic function is gkzbmdkj-ay-lblofpz reduced with an estimated ejection fra ction in the range of 35-40%. Inferior wall hypokinesis. Normal left ventricular size. Wall thickness is normal. There is global left ventricular dysfunction. RIGHT VENTRICLE Normal right ventricular size and systolic function. LEFT ATRIUM The left atrial size is normal. RIGHT ATRIUM The right atrial size is normal. ATRIAL SEPTUM Normal atrial septal thickness without atrial level shunting by limited color doppler interrogation. AORTA The aortic root and proximal ascending aorta are normal in size on limited imaging. MITRAL VALVE Structurally normal mitral valve. Mmqg-hi-lbluimmm mitral valve regurgitation. AORTIC VALVE Trileaflet aortic valve. No aortic valve stenosis or regurgitation. TRICUSPID VALVE Structurally normal tricuspid valve. There is mild tricuspid valve regurgitation. The estimated pulmonary arterial pressure is 42.3 mmHg. PULMONARY VALVE No pulmonary valve regurgitation or stenosis. VESSELS The inferior vena cava is normal in size. PERICARDIUM No pericardial effusion. Andrew Gotti MD, FACC (Electronically Signed) Final Date:23 February 2018 13:22
--- NOTE | 2018-02-23 16:01 | HHI.PR ---
Review/Management Daily Summary 02/23 awake and talk active, dysarthric speech and difficult to be comprehended follows simple commands moves 4 limbs quadruparesis suspect neuro bergman near baseline no other neuro intervention call prn Subjective Subjective Comments No acute events reported Active Medications Current Medications Medications (Trade) Dose Ordered Sig/Arabella Route Start Time Stop Time Status Last Admin (Pepcid Inj) 20 mg Q12HR IV PUSH 02/20/18 21:00 02/23/18 09:03 (Duoneb Neb) 1 ampule Q6HR NEB INH 02/20/18 16:00 02/23/18 15:31 (Duoneb Neb) 1 ampule Q2HR NEB PRN INH 02/20/18 14:45 (Heparin Inj) 5,000 units Q12H SQ 02/20/18 15:00 02/23/18 03:00 Miscellaneous Information 1 Q361D XX 02/20/18 14:45 (Chlorhexidine 2% Cloth) 3 pack Taper DAILY@04 TOP 02/21/18 04:00 02/17/19 03:59 02/23/18 04:00 (Chlorhexidine 2% Cloth) 3 pack UNSCH PRN TOP 02/20/18 14:45 (Lay-Colace) 1 tab BID PO 02/20/18 21:00 02/22/18 07:55 (Milk Of Magnesia Liq) 30 ml Q12H PRN PO 02/20/18 14:45 (Senokot) 17.2 mg Q12H PRN PO 02/20/18 14:45 (Dulcolax Supp) 10 mg DAILY PRN RECTAL 02/20/18 14:45 (Lactulose Liq) 30 ml DAILY PRN PO 02/20/18 14:45 (D50w (Vial) Inj) 50 ml UNSCH PRN IV PUSH 02/20/18 14:45 02/23/18 06:49 (Glucagon Inj) 1 mg UNSCH PRN OTHER 02/20/18 14:45 (SoluCORTEF INJ) 100 mg Q8H IV PUSH 02/21/18 08:00 02/23/18 09:03 (Vitamin D Liq) 2,000 units DAILY PO 02/22/18 09:00 02/22/18 07:55 (NovoLIN R SUPPLEMENTAL SCALE) 1 Q4HR SQ 02/23/18 04:00 Sodium Chloride 154 meq/Dextrose 1,038.5 ml @ 50 mls/hr [id number] IV 02/23/18 11:00 02/23/18 12:17 (Synthroid) 37.5 mcg DAILY@0600 PO 02/24/18 06:00 Allergies Allergies Coded Allergies No Known Allergies (Unverified Allergy, Unknown, 02/20/18) Exam I&O / VS Vital Signs Date Time Temp Pulse Resp B/P (MAP) Pulse Ox O2 Delivery O2 Flow Rate FiO2 02/23/18 14:00 63 02/23/18 13:00 55 02/23/18 12:30 59 02/23/18 12:30 95.0 59 127/60 (82) 100 02/23/18 12:00 94.5 60 129/59 (82) 100 02/23/18 12:00 60 02/23/18 11:30 58 02/23/18 11:30 94.3 58 136/63 (87) 100 02/23/18 11:00 94.1 47 130/59 (82) 100 02/23/18 11:00 47 02/23/18 10:30 58 02/23/18 10:30 94.3 58 172/89 (116) 02/23/18 10:00 55 02/23/18 10:00 94.5 55 160/71 (100) 02/23/18 09:30 56 02/23/18 09:30 94.6 56 160/71 (100) 02/23/18 09:00 94.8 54 16 166/77 (106) 02/23/18 09:00 54 02/23/18 08:39 95.2 59 14 172/74 (106) 02/23/18 08:39 59 02/23/18 08:30 92.8 64 26 210/121 (150) 02/23/18 08:30 64 02/23/18 08:01 95.5 64 18 177/80 (112) 02/23/18 08:01 64 02/23/18 08:00 95.5 80 32 177/80 (112) 02/23/18 08:00 80 02/23/18 06:00 60 02/23/18 04:00 97.7 68 10 132/61 (84) 100 02/23/18 04:00 68 02/23/18 02:00 78 02/23/18 00:00 68 02/23/18 00:00 95.7 68 10 107/52 (70) 100 02/22/18 22:00 50 02/22/18 21:37 95 21 02/22/18 20:00 51 02/22/18 20:00 92.0 51 9 161/70 (100) 02/22/18 18:00 66 10 143/65 (91) 02/22/18 18:00 66 02/22/18 17:00 54 12 164/72 (102) 02/22/18 17:00 54 02/22/18 16:00 51 20 161/74 (103) 02/22/18 16:00 51 Objective Micro and Labs Laboratory Tests Test 02/23/18 03:30 02/23/18 11:43 White Blood Count 6.7 5.4 Red Blood Count 2.73 2.78 Hemoglobin 7.7 7.8 Hematocrit 23.8 24.0 Mean Corpuscular Volume 87.2 86.6 Mean Corpuscular Hemoglobin 28.0 27.9 Mean Corpuscular Hemoglobin Concent 32.1 32.3 Red Cell Distribution Width 19.2 19.2 Platelet Count 89 103 Mean Platelet Volume 9.2 8.6 Neutrophils (%) (Auto) 79.8 90.6 Lymphocytes (%) (Auto) 16.8 8.1 Monocytes (%) (Auto) 3.1 1.1 Eosinophils (%) (Auto) 0.0 0.0 Basophils (%) (Auto) 0.3 0.2 Neutrophils # (Auto) 5.4 4.9 Lymphocytes # (Auto) 1.1 0.4 Monocytes # (Auto) 0.2 0.1 Eosinophils # (Auto) 0.0 0.0 Basophils # (Auto) 0.0 0.0 CBC Comment AUTO DIFF DIFF FINAL Differential Comment AUTO DIFF CONFIRMED Platelet Estimate LOW Platelet Morphology Comment NORMAL Ovalocytes 1+ Blood Urea Nitrogen 31 Creatinine 0.68 Random Glucose 62 Total Protein 6.0 Albumin 2.3 Calcium Level 7.8 Phosphorus Level 3.0 Magnesium Level 1.7 Alkaline Phosphatase 199 Aspartate Amino Transf (AST/SGOT) 311 Alanine Aminotransferase (ALT/SGPT) 340 Total Bilirubin 0.3 Sodium Level 143 Potassium Level 3.6 Chloride Level 114 Carbon Dioxide Level 21.3 Anion Gap 8 Estimat Glomerular Filtration Rate 106 Date/Time Source Procedure Growth Status 02/23/18 09:13 Stool Stool Stool Occult Blood (NAVNEET) - Final HEMOCCULT POSITIVE Complete Jhon Le MD Feb 23, 2018 16:01
--- NOTE | 2018-02-23 16:19 | HHI.HCPN ---
Reason for visit a. To assist with evaluation and management of symptoms including: confusion. b. To assist medical decision maker(s) with: better understanding of current medical conditions; weighing benefits/burdens of medical treatment options; making medical treatment decisions. . (María Tolbert) Subjective/Interval History Seen to follow-up on symptom management. Dr. Mccallum contacted the palliative care team as the patient was developing episodes of bradycardia with heart rates into the 30s and 40s. Telemetry history review showed no pauses and no bradycardia below 30 bpm. Patient remained hemodynamically stable with the bradycardia and is indeed hypertensive. She is on no rate suppressing medications. 2D echocardiogram showed left ventricular systolic function reduced with an ejection fraction in the range of 35-40% with inferior wall hypokinesis, mild to moderate MR and mild TR. Estimated pulmonary artery pressure is 42.3. Consultations: * Neurology: EEG shows bilateral slowing suggestive of a moderately severe diffuse disturbance of cerebral function with no epileptiform features. Believe her acute encephalopathy is from a metabolic event. Unlikely cardiovascular. * Cardiology: Following for bradycardia, no need for transvenous pacemaker at this time. Keep atropine and pacing pads at bedside. * GI: Following for elevated LFTs, liver ultrasound shows no gallstones or ductal dilation. Liver enzymes trending down. This is a cachectic woman, lying in bed in 4 point restraints. Her speech is unintelligible. She frequently looks to the right when attempting to speak. She can give no history. . Family/friend interactions This is a 62-year-old -[place] female with mental retardation, previously cared for by a friend of the family, Swati Gutierrez. Swati had been a longtime friend of the family and when the patient's father fell ill, the father asked her to take care of his daughter and allow no harm to come to her. She has raised her with her own children for several years. I did establish contact with her via a different phone number and is listed in the contacts [phone]. She states in all the years that she has known the father and the patient, there has been no other family involved. They never had visitors from friends or family to her knowledge. She has been the only caregiver. She is not a legal guardian for the patient, nor any blood relation. She stated that in her opinion, no aggressive measures should be made to resuscitate her as she felt that would be cruel to her. I did contact legal, and spoke with Sarah, who stated that an [employer] report should be run but if no other family were found that Swati would be acceptable as a legal decision maker. [employer] report has been requested from case management to determine decision-maker to establish CODE STATUS. . (María Tolbert) Advance Directives Living Will: Never completed Health Care Surrogate: Never completed Durable Power of Nurses' Registry Director: Never completed (María Tolbetr) Advance Directive Specifics Health Care Surrogate(s): Patient is not capacitated to make her own health care decisions, will not regain capacity. Per EMR review, Swati Gutierrez is her plant manager, but not a legal guardian. Pending [employer] report to determine if any other family can be found or if she can serve as the legal decision maker. . (María Tolbert) Objective Vital Signs Date Time Temp Pulse Resp B/P (MAP) Pulse Ox O2 Delivery O2 Flow Rate FiO2 02/23/18 14:00 63 02/23/18 13:00 55 02/23/18 12:30 59 02/23/18 12:30 95.0 59 127/60 (82) 100 02/23/18 12:00 94.5 60 129/59 (82) 100 02/23/18 12:00 60 02/23/18 11:30 58 02/23/18 11:30 94.3 58 136/63 (87) 100 02/23/18 11:00 94.1 47 130/59 (82) 100 02/23/18 11:00 47 02/23/18 10:30 58 02/23/18 10:30 94.3 58 172/89 (116) 02/23/18 10:00 55 02/23/18 10:00 94.5 55 160/71 (100) 02/23/18 09:30 56 02/23/18 09:30 94.6 56 160/71 (100) 02/23/18 09:00 94.8 54 16 166/77 (106) 02/23/18 09:00 54 02/23/18 08:39 95.2 59 14 172/74 (106) 3/26/18 08:39 59 02/23/18 08:30 92.8 64 26 210/121 (150) 02/23/18 08:30 64 02/23/18 08:01 95.5 64 18 177/80 (112) 02/23/18 08:01 64 02/23/18 08:00 95.5 80 32 177/80 (112) 02/23/18 08:00 80 02/23/18 06:00 60 02/23/18 04:00 97.7 68 10 132/61 (84) 100 02/23/18 04:00 68 02/23/18 02:00 78 02/23/18 00:00 68 02/23/18 00:00 95.7 68 10 107/52 (70) 100 02/22/18 22:00 50 02/22/18 21:37 95 21 02/22/18 20:00 51 02/22/18 20:00 92.0 51 9 161/70 (100) 02/22/18 18:00 66 10 143/65 (91) 02/22/18 18:00 66 02/22/18 17:00 54 12 164/72 (102) 02/22/18 17:00 54 02/22/18 16:00 51 20 161/74 (103) 02/22/18 16:00 51 Intake & Output 02/23/18 02/23/18 07:00 19:00 # Voids 4 # Bowel Movements 2 Physical Exam CONSTITUTIONAL/GENERAL: This is a frail, cachectic female patient, in no apparent distress. TUBES/LINES/DRAINS: NC, PIV. SKIN: No jaundice, rashes, or lesions. Ecchymoses on upper extremities. No wounds seen anteriorly. Skin temperature appropriate. Not diaphoretic. HEAD: Atraumatic. Normocephalic. EYES: Pupils equal and round and reactive, right sluggishly reactive. Extraocular motions intact. ENT: Opens eyes to voice with repeated request. Speech slurred, unable to understand. Nose without bleeding or purulent drainage. Poor dentition. Dry mucous membranes. NECK: Trachea midline. CARDIOVASCULAR: Regular rate and rhythm without murmurs, gallops, or rubs. No JVD. RESPIRATORY/CHEST: Symmetric, unlabored respirations. Diminished, clear. GASTROINTESTINAL: Abdomen soft, non-tender, nondistended. No guarding. Bowel sounds present. GENITOURINARY: Without palpable bladder distension. MUSCULOSKELETAL: Extremities without clubbing, cyanosis, or edema. No mottling or clubbing. LYMPHATICS: No palpable cervical or supraclavicular adenopathy. NEUROLOGICAL: Awakens to repeated request to open eyes. Speech slurred, unintelligible. Turns head to the right when trying to speak. Moves all extremities. PSYCHIATRIC: confused. . (María Tolbert) Diagnostic Tests Laboratory Laboratory Tests Test 02/20/18 18:20 02/20/18 20:57 02/21/18 03:50 02/22/18 05:58 Nasal Screen MRSA (PCR) MRSA NOT DETECTED (NOT Total Creatine Kinase 407 U/L (26-192) Creatine Kinase MB 24.8 NG/ML (0.5-3.6) Creatine Kinase MB % 6.1 % (0.0-4.0) Troponin I LESS THAN 0.02 NG/ML LESS THAN 0.02 NG/ML Salicylates Level LESS THAN 1.7 MG/DL Acetaminophen Level LESS THAN 2.0 MCG/ML Hepatitis A IgM Antibody NONREACTIVE (NONREACTIVE) Hepatitis B Surface Antigen NONREACTIVE (NONREACTIVE) Hepatitis B Core IgM Antibody NONREACTIVE (NONREACTIVE) Hepatitis C IgG Antibody NONREACTIVE (NONREACTIVE) White Blood Count 5.3 TH/MM3 (4.0-11.0) 5.7 TH/MM3 (4.0-11.0) Red Blood Count 3.23 MIL/MM3 (4.00-5.30) 2.75 MIL/MM3 (4.00-5.30) Hemoglobin 9.1 GM/DL (11.6-15.3) 7.7 GM/DL (11.6-15.3) Hematocrit 28.1 % (35.0-46.0) 23.7 % (35.0-46.0) Mean Corpuscular Volume 87.1 FL (80.0-100.0) 86.1 FL (80.0-100.0) Mean Corpuscular Hemoglobin 28.1 PG (27.0-34.0) 27.9 PG (27.0-34.0) Mean Corpuscular Hemoglobin Concent 32.2 % (32.0-36.0) 32.4 % (32.0-36.0) Red Cell Distribution Width 19.3 % (11.6-17.2) 19.3 % (11.6-17.2) Platelet Count 117 TH/MM3 (150-450) 103 TH/MM3 (150-450) Mean Platelet Volume 8.4 FL (7.0-11.0) 9.0 FL (7.0-11.0) Neutrophils (%) (Auto) 85.1 % (16.0-70.0) 86.9 % (16.0-70.0) Lymphocytes (%) (Auto) 10.6 % (9.0-44.0) 12.1 % (9.0-44.0) Monocytes (%) (Auto) 4.2 % (0.0-8.0) 0.9 % (0.0-8.0) Eosinophils (%) (Auto) 0.0 % (0.0-4.0) 0.0 % (0.0-4.0) Basophils (%) (Auto) 0.1 % (0.0-2.0) 0.1 % (0.0-2.0) Neutrophils # (Auto) 4.5 TH/MM3 (1.8-7.7) 4.9 TH/MM3 (1.8-7.7) Lymphocytes # (Auto) 0.6 TH/MM3 (1.0-4.8) 0.7 TH/MM3 (1.0-4.8) Monocytes # (Auto) 0.2 TH/MM3 (0-0.9) 0.1 TH/MM3 (0-0.9) Eosinophils # (Auto) 0.0 TH/MM3 (0-0.4) 0.0 TH/MM3 (0-0.4) Basophils # (Auto) 0.0 TH/MM3 (0-0.2) 0.0 TH/MM3 (0-0.2) CBC Comment DIFF FINAL DIFF FINAL Differential Comment Blood Urea Nitrogen 33 MG/DL (7-18) 29 MG/DL (7-18) Creatinine 0.45 MG/DL (0.50-1.00) 0.58 MG/DL (0.50-1.00) Random Glucose 56 MG/DL (74-106) 89 MG/DL (74-106) Total Protein 6.7 GM/DL (6.4-8.2) 6.1 GM/DL (6.4-8.2) Albumin 2.7 GM/DL (3.4-5.0) 2.3 GM/DL (3.4-5.0) Calcium Level 7.9 MG/DL (8.5-10.1) 7.4 MG/DL (8.5-10.1) Alkaline Phosphatase 324 U/L (45-117) 233 U/L (45-117) Aspartate Amino Transf (AST/SGOT) 1406 U/L (15-37) 535 U/L (15-37) Alanine Aminotransferase (ALT/SGPT) 718 U/L (10-53) 427 U/L (10-53) Total Bilirubin 0.3 MG/DL (0.2-1.0) 0.3 MG/DL (0.2-1.0) Sodium Level 138 MEQ/L (136-145) 142 MEQ/L (136-145) Potassium Level 3.7 MEQ/L (3.5-5.1) 3.7 MEQ/L (3.5-5.1) Chloride Level 104 MEQ/L (98-107) 110 MEQ/L (98-107) Carbon Dioxide Level 27.5 MEQ/L (21.0-32.0) 21.6 MEQ/L (21.0-32.0) Anion Gap 7 MEQ/L (5-15) 10 MEQ/L (5-15) Iron Level 50 MCG/DL (50-170) Total Iron Binding Capacity 182 MCG/DL (250-450) Percent Iron Saturation 27.5 % (20-50) Ferritin 2899 NG/ML (8-252) 25-Hydroxy Vitamin D Total 18.8 ng/ML (30-100) Free Thyroxine 0.88 NG/DL (0.76-1.46) Free Triiodothyronine (T3) pg/dL 0.88 PG/ML (2.18-3.98) Thyroid Stimulating Hormone 3rd Gen 4.910 uIU/ML (0.358-3.740) Phosphorus Level 3.2 MG/DL (2.5-4.9) Magnesium Level 1.7 MG/DL (1.5-2.5) Estimat Glomerular Filtration Rate 127 ML/MIN (>89) Protein Corrected Calcium 7.9 MG/DL (8.5-10.1) Anti-Nuclear Antibody Screen NEG (NEG) Test 02/22/18 09:00 02/22/18 13:26 02/23/18 03:30 02/23/18 11:43 Hemoglobin 9.0 GM/DL (11.6-15.3) 7.7 GM/DL (11.6-15.3) 7.8 GM/DL (11.6-15.3) Hematocrit 27.7 % (35.0-46.0) 23.8 % (35.0-46.0) 24.0 % (35.0-46.0) White Blood Count 6.7 TH/MM3 (4.0-11.0) 5.4 TH/MM3 (4.0-11.0) Red Blood Count 2.73 MIL/MM3 (4.00-5.30) 2.78 MIL/MM3 (4.00-5.30) Mean Corpuscular Volume 87.2 FL (80.0-100.0) 86.6 FL (80.0-100.0) Mean Corpuscular Hemoglobin 28.0 PG (27.0-34.0) 27.9 PG (27.0-34.0) Mean Corpuscular Hemoglobin Concent 32.1 % (32.0-36.0) 32.3 % (32.0-36.0) Red Cell Distribution Width 19.2 % (11.6-17.2) 19.2 % (11.6-17.2) Platelet Count 89 TH/MM3 (150-450) 103 TH/MM3 (150-450) Mean Platelet Volume 9.2 FL (7.0-11.0) 8.6 FL (7.0-11.0) Neutrophils (%) (Auto) 79.8 % (16.0-70.0) 90.6 % (16.0-70.0) Lymphocytes (%) (Auto) 16.8 % (9.0-44.0) 8.1 % (9.0-44.0) Monocytes (%) (Auto) 3.1 % (0.0-8.0) 1.1 % (0.0-8.0) Eosinophils (%) (Auto) 0.0 % (0.0-4.0) 0.0 % (0.0-4.0) Basophils (%) (Auto) 0.3 % (0.0-2.0) 0.2 % (0.0-2.0) Neutrophils # (Auto) 5.4 TH/MM3 (1.8-7.7) 4.9 TH/MM3 (1.8-7.7) Lymphocytes # (Auto) 1.1 TH/MM3 (1.0-4.8) 0.4 TH/MM3 (1.0-4.8) Monocytes # (Auto) 0.2 TH/MM3 (0-0.9) 0.1 TH/MM3 (0-0.9) Eosinophils # (Auto) 0.0 TH/MM3 (0-0.4) 0.0 TH/MM3 (0-0.4) Basophils # (Auto) 0.0 TH/MM3 (0-0.2) 0.0 TH/MM3 (0-0.2) CBC Comment AUTO DIFF DIFF FINAL Differential Comment AUTO DIFF CONFIRMED Platelet Estimate LOW (NORMAL) Platelet Morphology Comment NORMAL (NORMAL) Ovalocytes 1+ (NORMAL) Blood Urea Nitrogen 31 MG/DL (7-18) Creatinine 0.68 MG/DL (0.50-1.00) Random Glucose 62 MG/DL (74-106) Total Protein 6.0 GM/DL (6.4-8.2) Albumin 2.3 GM/DL (3.4-5.0) Calcium Level 7.8 MG/DL (8.5-10.1) Phosphorus Level 3.0 MG/DL (2.5-4.9) Magnesium Level 1.7 MG/DL (1.5-2.5) Alkaline Phosphatase 199 U/L (45-117) Aspartate Amino Transf (AST/SGOT) 311 U/L (15-37) Alanine Aminotransferase (ALT/SGPT) 340 U/L (10-53) Total Bilirubin 0.3 MG/DL (0.2-1.0) Sodium Level 143 MEQ/L (136-145) Potassium Level 3.6 MEQ/L (3.5-5.1) Chloride Level 114 MEQ/L (98-107) Carbon Dioxide Level 21.3 MEQ/L (21.0-32.0) Anion Gap 8 MEQ/L (5-15) Estimat Glomerular Filtration Rate 106 ML/MIN (>89) (María Tolbert) Result Diagram: 02/23/18 1143 02/23/18 0330 Microbiology Microbiology Date/Time Source Procedure Growth Status 02/23/18 09:13 Stool Stool Stool Occult Blood (NAVNEET) - Final HEMOCCULT POSITIVE Complete Imaging Last Impressions Liver Ultrasound 02/20/18 0000 Signed Impressions: Service Date/Time: Tuesday, February 20, 2018 18:47 - CONCLUSION: 1. No gallstones or ductal dilatation. Right-sided medical renal disease. Trace free fluid. Javier Walden MD Head CT 02/20/18 0000 Signed Impressions: Service Date/Time: Tuesday, February 20, 2018 13:57 - CONCLUSION: No acute disease. Bud Benton Jr., MD Chest X-Ray 02/20/18 0000 Signed Impressions: Service Date/Time: Tuesday, February 20, 2018 14:00 - CONCLUSION: Minimal parenchymal changes left base. Sudhakar Angel MD FACR (María Tolbert) Assessment and Plan Disease Oriented Problem List: (1) Altered mental status (2) Bradycardia (3) Anemia (4) Cachectic (5) Hypertensive urgency (6) Hypokalemia Symptom Scale: (1) Pain (2) Dyspnea Pertinent Non-Medical Issues Psychosocial: Swati Gutierrez has been her plant manager for the last few years, since the patient's father . No other known family. Spiritual:Unknown. Legal: Patient is not capacitated to make her own health care decisions, will not regain capacity. Pending [employer] report to determine any other family, otherwise Swati Gutierrez can be the legal decision maker per Sarah in legal department. Ethical issues impacting care: No known concerns at this time. . Important Contacts * Swati Gutierrez, legal guardian: . . Prognosis Will need additional testing to better prognosticate. However this patient appears quite frail, cachectic and debilitated which puts her at high risk for further setbacks and decline. . Code Status: Full Code Plan * Decision Maker: Patient is not capacitated to make her own health care decisions, will not regain capacity. Awaiting [employer] to determine any other family, otherwise Swati Gutierrez is willing to be the decision maker. * FULL CODE -will clarify with legal guardian when able to have a conversation. * Palliative care spoke with Swati Gutierrez at updated number and are working with legal to determine decision-maker. * SYMPTOMS: Confusion: Altered mental status secondary to reported mental retardation and underlying dementia. Possibly complicated by infection, hypoglycemia, possible stroke, other. * Palliative care will continue to follow throughout hospital course to assist with symptom management and clarification of goals as needed. . (María Tolbert) Attestation To help prompt me to consider important information that might be impacting today's encounter and assessment, information from prior notes written by myself or my colleagues may have been "brought forward" into today's note. My signature on this note, however, is an attestation that I personally performed the exam, history, and/or decision-making noted today, and, unless otherwise indicated, the interactions with patient, family, and staff as well as the review of records all occurred today. I also attest that the listed assessment and stated plan reflect my best clinical judgment today based on the combination of historical information, prior notes, and today's exam/ interactions. When time spent is documented, it refers only to time spent today by the signer, or if indicated, combined time spent today by collaborating physician/nurse practitioner. . (María Tolbert) Collaborating MD Comments Chart reviewed. Case discussed with palliative care INVASIVE CARDIOLOGIST. Above INVASIVE CARDIOLOGIST note reviewed and I concur. . (Jordan Tai MD) María Tolbert Feb 23, 2018 16:18 Jordan Tai MD Mar 08, 2018 14:38
--- NOTE | 2018-02-23 17:43 | RADRPT ---
EXAM DATE/TIME: 02/23/2018 15:58 [facility] COMPARISON: No previous studies available for comparison. INDICATIONS : Clear for mri MEDICAL HISTORY : Hypertension. dementia SURGICAL HISTORY : Hysterectomy. ENCOUNTER: Initial ACUITY: 3 days PAIN SCORE: Non-responsive. LOCATION: Bilateral abdomen FINDINGS: Intestinal gas pattern is nonspecific and benign with gas and stool present throughout the colon and gas present in nondilated bowel loops elsewhere. A Smith catheter is present. Overlying EKG leads. Th ere is degenerative change present in the spine and hips. No radiodense implants of any kind or other foreign objects to contract MRI. CONCLUSION: No contraindication to MRI seen on the film Osito Pereira MD on February 23, 2018 at 17:39 Board Certified Radiologist. This report was verified electronically.
--- NOTE | 2018-02-23 18:03 | PD.CARD.PN ---
Subjective Subjective Remarks No further bradycardia noted More awake today, still confused, unable to determine what she is saying Objective Medications Current Medications Medications (Trade) Dose Ordered Sig/Arabella Route Start Time Stop Time Status Last Admin (Pepcid Inj) 20 mg Q12HR IV PUSH 02/20/18 21:00 02/23/18 09:03 (Duoneb Neb) 1 ampule Q6HR NEB INH 02/20/18 16:00 02/23/18 15:31 (Duoneb Neb) 1 ampule Q2HR NEB PRN INH 02/20/18 14:45 Miscellaneous Information 1 Q361D XX 02/20/18 14:45 (Chlorhexidine 2% Cloth) 3 pack Taper DAILY@04 TOP 02/21/18 04:00 02/17/19 03:59 02/23/18 04:00 (Chlorhexidine 2% Cloth) 3 pack UNSCH PRN TOP 02/20/18 14:45 (Lay-Colace) 1 tab BID PO 02/20/18 21:00 02/22/18 07:55 (Milk Of Magnesia Liq) 30 ml Q12H PRN PO 02/20/18 14:45 (Senokot) 17.2 mg Q12H PRN PO 02/20/18 14:45 (Dulcolax Supp) 10 mg DAILY PRN RECTAL 02/20/18 14:45 (Lactulose Liq) 30 ml DAILY PRN PO 02/20/18 14:45 (D50w (Vial) Inj) 50 ml UNSCH PRN IV PUSH 02/20/18 14:45 02/23/18 06:49 (Glucagon Inj) 1 mg UNSCH PRN OTHER 02/20/18 14:45 (SoluCORTEF INJ) 100 mg Q8H IV PUSH 02/21/18 08:00 02/23/18 17:37 (Vitamin D Liq) 2,000 units DAILY PO 02/22/18 09:00 02/22/18 07:55 (NovoLIN R SUPPLEMENTAL SCALE) 1 Q4HR SQ 02/23/18 04:00 Sodium Chloride 154 meq/Dextrose 1,038.5 ml @ 50 mls/hr [id number] IV 02/23/18 11:00 02/23/18 12:17 (Synthroid) 37.5 mcg DAILY@0600 PO 02/24/18 06:00 Vital Signs / I&O Vital Signs Date Time Temp Pulse Resp B/P (MAP) Pulse Ox O2 Delivery O2 Flow Rate FiO2 02/23/18 17:00 94.1 70 123/58 (79) 100 02/23/18 17:00 70 02/23/18 16:30 97.9 84 145/63 (90) 100 02/23/18 16:30 84 02/23/18 16:00 69 02/23/18 16:00 97.9 69 148/63 (91) 100 02/23/18 14:00 63 02/23/18 13:00 55 02/23/18 12:30 59 02/23/18 12:30 95.0 59 127/60 (82) 100 02/23/18 12:00 94.5 60 129/59 (82) 100 02/23/18 12:00 60 02/23/18 11:30 58 02/23/18 11:30 94.3 58 136/63 (87) 100 02/23/18 11:00 94.1 47 130/59 (82) 100 02/23/18 11:00 47 02/23/18 10:30 58 02/23/18 10:30 94.3 58 172/89 (116) 02/23/18 10:00 55 02/23/18 10:00 94.5 55 160/71 (100) 02/23/18 09:30 56 02/23/18 09:30 94.6 56 160/71 (100) 02/23/18 09:00 94.8 54 16 166/77 (106) 02/23/18 09:00 54 02/23/18 08:39 95.2 59 14 172/74 (106) 02/23/18 08:39 59 02/23/18 08:30 92.8 64 26 210/121 (150) 02/23/18 08:30 64 02/23/18 08:01 95.5 64 18 177/80 (112) 02/23/18 08:01 64 02/23/18 08:00 95.5 80 32 177/80 (112) 02/23/18 08:00 80 02/23/18 06:00 60 02/23/18 04:00 97.7 68 10 132/61 (84) 100 02/23/18 04:00 68 02/23/18 02:00 78 02/23/18 00:00 68 02/23/18 00:00 95.7 68 10 107/52 (70) 100 02/22/18 22:00 50 02/22/18 21:37 95 21 02/22/18 20:00 51 02/22/18 20:00 92.0 51 9 161/70 (100) I/O 02/22/18 02/22/18 02/22/18 02/23/18 02/23/18 02/23/18 07:00 15:00 23:00 07:00 15:00 23:00 Intake Total 1037.8 ml Output Total 300 ml Balance 737.8 ml IV Total 1037.8 ml Output Urine Total 300 ml # Voids 1 3 1 # Bowel Movements 0 1 1 Physical Exam GENERAL: NAD SKIN: Warm and dry. HEAD: Atraumatic. Normocephalic. EYES: Pupils equal and round. No scleral icterus. No injection or drainage. ENT: No nasal bleeding or discharge. Mucous membranes pink and moist. NECK: Trachea midline. No JVD. CARDIOVASCULAR: Regular rate and rhythm. RESPIRATORY: No accessory muscle use. Clear to auscultation. Breath sounds equal bilaterally. GASTROINTESTINAL: Abdomen soft, non-tender, nondistended. Hepatic and splenic margins not palpable. MUSCULOSKELETAL: Upper extremities contracted NEUROLOGICAL: No obvious focal defects Laboratory Laboratory Tests Test 02/23/18 03:30 02/23/18 11:43 White Blood Count 6.7 TH/MM3 5.4 TH/MM3 Red Blood Count 2.73 MIL/MM3 2.78 MIL/MM3 Hemoglobin 7.7 GM/DL 7.8 GM/DL Hematocrit 23.8 % 24.0 % Mean Corpuscular Volume 87.2 FL 86.6 FL Mean Corpuscular Hemoglobin 28.0 PG 27.9 PG Mean Corpuscular Hemoglobin Concent 32.1 % 32.3 % Red Cell Distribution Width 19.2 % 19.2 % Platelet Count 89 TH/MM3 103 TH/MM3 Mean Platelet Volume 9.2 FL 8.6 FL Neutrophils (%) (Auto) 79.8 % 90.6 % Lymphocytes (%) (Auto) 16.8 % 8.1 % Monocytes (%) (Auto) 3.1 % 1.1 % Eosinophils (%) (Auto) 0.0 % 0.0 % Basophils (%) (Auto) 0.3 % 0.2 % Neutrophils # (Auto) 5.4 TH/MM3 4.9 TH/MM3 Lymphocytes # (Auto) 1.1 TH/MM3 0.4 TH/MM3 Monocytes # (Auto) 0.2 TH/MM3 0.1 TH/MM3 Eosinophils # (Auto) 0.0 TH/MM3 0.0 TH/MM3 Basophils # (Auto) 0.0 TH/MM3 0.0 TH/MM3 CBC Comment AUTO DIFF DIFF FINAL Differential Comment AUTO DIFF CONFIRMED Platelet Estimate LOW Platelet Morphology Comment NORMAL Ovalocytes 1+ Blood Urea Nitrogen 31 MG/DL Creatinine 0.68 MG/DL Random Glucose 62 MG/DL Total Protein 6.0 GM/DL Albumin 2.3 GM/DL Calcium Level 7.8 MG/DL Phosphorus Level 3.0 MG/DL Magnesium Level 1.7 MG/DL Alkaline Phosphatase 199 U/L Aspartate Amino Transf (AST/SGOT) 311 U/L Alanine Aminotransferase (ALT/SGPT) 340 U/L Total Bilirubin 0.3 MG/DL Sodium Level 143 MEQ/L Potassium Level 3.6 MEQ/L Chloride Level 114 MEQ/L Carbon Dioxide Level 21.3 MEQ/L Anion Gap 8 MEQ/L Estimat Glomerular Filtration Rate 106 ML/MIN Assessment and Plan Problem List: (1) Bradycardia ICD Codes: R00.1 - Bradycardia, unspecified Status: Acute (2) Altered mental status ICD Codes: R41.82 - Altered mental status Status: Acute (3) Hypokalemia ICD Codes: E87.6 - Hypokalemia Status: Acute (4) Dyspnea ICD Codes: R06.00 - Dyspnea, unspecified (5) Anemia ICD Codes: D64.9 - Anemia, unspecified Status: Acute (6) Cachectic ICD Codes: R64 - Cachexia Status: Acute Assessment and Plan 1) Bradycardia Resolved Keep Atropine/pacing pads at the bedside Avoid AV chaparrita blocking meds 2) Altered mental status Per primary team, unsure what baseline is at this point 3) Mental retardation 4) EF 35-40%, no further work up 5) Hypothyroidism per primary team 6) Malnutrition/cachexia Problem Qualifiers (1) Altered mental status: Qualified Codes: R41.82 - Altered mental status, unspecified (2) Anemia: Qualified Codes: D64.9 - Anemia, unspecified Jarett Moss DO Feb 23, 2018 18:03
--- NOTE | 2018-02-23 23:14 | RADRPT ---
EXAM DATE/TIME: 02/23/2018 22:07 [facility] COMPARISON: US ABDOMEN - LIVER, February 20, 2018, 18:47. INDICATIONS : Transaminitis. MEDICAL HISTORY : None. SURGICAL HISTORY : None. ENCOUNTER: Initial ACUITY: 1 day PAIN SCORE: Nonresponsive. LOCATION: Bilateral upper quadrant TECHNIQUE: Multiplanar, multisequence magnetic resonance imaging of the abdomen was performed. High-resolution 3D dataset was utilized to reconstruct maximum-intensity projection (MIP) images. FINDINGS: INTRAHEPATIC BILE DUCTS: Within normal limits. No significant anatomical variant is present. EXTRAHEPATIC BILE DUCTS: The common bile duct measures 3mm. No stone or filling defect is identified. GALLBLADDER: No stones, wall thickening, or pericholecystic fluid. Gallbladder mildly dilated. LIVER: Normal size and signal intensity. No concerning liver lesion is identified on this non-contrast exam. Hepatic cysts are seen. PANCREAS: The main pancreatic duct is normal in size. There is no significant anatomical variant. Signal inte nsity is within normal limits. No mass is visualized on this non-contrast exam. OTHER: The remaining visualized structures demonstrate no acute abnormality on this non-contrast exam. Bilat eral pleural effusions. CONCLUSION: 1. No intra-or extrahepatic biliary ductal dilatation. 2. Hepatic cysts. 3. Bilateral pleural effusions. Dagoberto Talbot MD on February 23, 2018 at 23:05 Board Certified Radiologist. This report was verified electronically.
[2018-02-24] VITALS (34 sets, daily range): BP systolic 82–197; BP diastolic 52–130; PULSE 50–103; RESP 10–32; TEMP 98.1–99; O2SAT 75–100
[2018-02-24] MEDS: RESP: ALBUTEROL 2.5 MG/IPRATROPIUM 0.5 MG NEB (SCH) INH ×2 (02:44→08:11)
[2018-02-24] MEDS: INSULIN NovoLIN REGULAR SUPPLEMENTAL SCALE SQ SCH ×6 (04:00→20:00)
[2018-02-24] MEDS: CHLORHEXIDINE GLUCONATE 2 % 1 PACK (2 CLOTHS) TOP SCH (04:00)
[2018-02-24 05:24] LABS: AUTOMATED NEUTROPHIL # 5.2 TH/MM3 (1.8-7.7); BASOPHIL % 0.4 % (0.0-2.0); EOSINOPHIL % 0.1 % (0.0-4.0); HEMATOCRIT 26.5 % (35.0-46.0); HEMOGLOBIN 8.4 GM/DL (11.6-15.3); LYMPH % 15.8 % (9.0-44.0); MEAN CELL VOLUME 87.6 FL (80.0-100.0); MEAN CORPUSCULAR HEMOGLOBIN 27.8 PG (27.0-34.0); MEAN CORPUSCULAR HGB CONC 31.7 % (32.0-36.0); MEAN PLATELET VOLUME 8.5 FL (7.0-11.0); MONO % 2.9 % (0.0-8.0); MONOCYTE # 0.2 TH/MM3 (0-0.9); NEUT % 80.8 % (16.0-70.0); PLATELET COUNT 172 TH/MM3 (150-450); RED BLOOD COUNT 3.03 MIL/MM3 (4.00-5.30); RED CELL DISTRIBUTION WIDTH 19.6 % (11.6-17.2); WHITE BLOOD COUNT 6.4 TH/MM3 (4.0-11.0)
[2018-02-24] MEDS: LEVOTHYROXINE SODIUM 25 MCG TAB PO SCH (06:00)
[2018-02-24 06:10] LABS: BICARBONATE 19.9 MEQ/L (21.0-32.0); CREATININE 0.99 MG/DL (0.50-1.00); MAGNESIUM 1.9 MG/DL (1.5-2.5); PHOSPHORUS 3.6 MG/DL (2.5-4.9)
[2018-02-24] MEDS: SODIUM CHLORIDE 23.4% INJ 154 MEQ in DEXTROSE 10% INJ 1,000 ML IV SCH (07:40)
[2018-02-24] MEDS: FAMOTIDINE 20 MG/2 ML VIAL IV PUSH SCH (07:41)
[2018-02-24] MEDS: DOCUSATE SODIUM 50 MG/SENNA 8.6 MG TAB PO SCH ×2 (07:41→20:48)
[2018-02-24] MEDS: CHOLECALCIFEROL (VIT D3) LIQ 400 UNITS/ML 50 ML BOTTLE PO SCH (07:41)
[2018-02-24] MEDS: HYDROCORTISONE SOD SUCCINATE 100 MG VIAL IV PUSH SCH ×4 (07:41→22:15)
--- NOTE | 2018-02-24 09:22 | HHI.CCPN ---
Subjective Remarks/Hospital Course Patient is a 62-year-old female with a history of hypertension, mental retardation with underlying dementia, who presented to [facility] ED via ambulance as a stroke alert. The patient is status post a fall and hit her forehead. She was found to be hypoglycemic with a blood sugar of 53 and was given 10 grams of D10 and then her sugar was 130. The patient is a very poor historian. She had a CT scan of the brain, which showed no acute disease. In addition, a chest x-ray in the ER showed minimal parenchymal changes left base. ABG was performed on 2 liter nasal cannula, which showed a pH of 7.37, CO2 51, pO2 217, bicarb 29, saturation of 98%. Most of the history was obtained from reviewing the medical records. In the ED, she was hypertensive with a systolic blood pressure 150s to 170s; however, she had intermittent bradycardia with a heart rate in the 40s. The patient is on [address] Le from neurology service was notified regarding the stroke alert, and given her clinical presentation, patient was not a candidate for TPA. 02/21 Patient is on 4L oxygen was hypotensive overnight. Afebrile. 02/22 Patient seems more awake today, hemodynamics overall better. 02/23 No events overnight, hypothermic 02/24 Patient is lying in bed in NAD. MRCP abdomen yesterday no intra-or extrahepatic biliary ductal dilatation. Objective Vital Signs Date Time Temp Pulse Resp B/P (MAP) Pulse Ox O2 Delivery O2 Flow Rate FiO2 02/24/18 08:11 100 Nasal Cannula 3.00 02/24/18 06:00 50 02/24/18 04:00 98.8 18 141/65 (90) 02/22/18 21:37 21 Result Diagram: 02/24/18 0435 02/24/18 0435 Other Results Laboratory Tests Test 02/23/18 11:43 02/24/18 04:35 White Blood Count 5.4 TH/MM3 6.4 TH/MM3 Red Blood Count 2.78 MIL/MM3 3.03 MIL/MM3 Hemoglobin 7.8 GM/DL 8.4 GM/DL Hematocrit 24.0 % 26.5 % Mean Corpuscular Volume 86.6 FL 87.6 FL Mean Corpuscular Hemoglobin 27.9 PG 27.8 PG Mean Corpuscular Hemoglobin Concent 32.3 % 31.7 % Red Cell Distribution Width 19.2 % 19.6 % Platelet Count 103 TH/MM3 172 TH/MM3 Mean Platelet Volume 8.6 FL 8.5 FL Neutrophils (%) (Auto) 90.6 % 80.8 % Lymphocytes (%) (Auto) 8.1 % 15.8 % Monocytes (%) (Auto) 1.1 % 2.9 % Eosinophils (%) (Auto) 0.0 % 0.1 % Basophils (%) (Auto) 0.2 % 0.4 % Neutrophils # (Auto) 4.9 TH/MM3 5.2 TH/MM3 Lymphocytes # (Auto) 0.4 TH/MM3 1.0 TH/MM3 Monocytes # (Auto) 0.1 TH/MM3 0.2 TH/MM3 Eosinophils # (Auto) 0.0 TH/MM3 0.0 TH/MM3 Basophils # (Auto) 0.0 TH/MM3 0.0 TH/MM3 CBC Comment DIFF FINAL DIFF FINAL Differential Comment Blood Urea Nitrogen 44 MG/DL Creatinine 0.99 MG/DL Random Glucose 70 MG/DL Calcium Level 8.0 MG/DL Phosphorus Level 3.6 MG/DL Magnesium Level 1.9 MG/DL Sodium Level 145 MEQ/L Potassium Level 4.2 MEQ/L Chloride Level 116 MEQ/L Carbon Dioxide Level 19.9 MEQ/L Anion Gap 9 MEQ/L Estimat Glomerular Filtration Rate 69 ML/MIN Imaging Last Impressions Abdomen X-Ray 02/23/18 0000 Signed Impressions: Service Date/Time: Friday, February 23, 2018 15:58 - CONCLUSION: No contraindication to MRI seen on the film Osito Peerira MD Liver Ultrasound 02/20/18 0000 Signed Impressions: Service Date/Time: Tuesday, February 20, 2018 18:47 - CONCLUSION: 1. No gallstones or ductal dilatation. Right-sided medical renal disease. Trace free fluid. Javier Walden MD Head CT 02/20/18 0000 Signed Impressions: Service Date/Time: Tuesday, February 20, 2018 13:57 - CONCLUSION: No acute disease. Bud Benton Jr., MD Chest X-Ray 02/20/18 0000 Signed Impressions: Service Date/Time: Tuesday, February 20, 2018 14:00 - CONCLUSION: Minimal parenchymal changes left base. Sudhakar Angel MD FACR Objective Remarks GENERAL: Patient is 62 yo lying in bed in no acute resp distress SKIN: Warm and dry. HEAD: Normocephalic. EYES: No scleral icterus. No injection or drainage. NECK: Supple, trachea midline. No JVD or lymphadenopathy. CARDIOVASCULAR: Regular rate and rhythm without murmurs, gallops, or rubs. RESPIRATORY: Breath sounds equal bilaterally. No accessory muscle use. GASTROINTESTINAL: Abdomen soft, non-tender, nondistended. MUSCULOSKELETAL: No cyanosis, or edema. Neuro: More awake A/P Assessment and Plan 1. Respiratory insufficiency. 2. Altered mental status. 3. Status post hypoglycemic episode. 4. Bradycardia. 5. History of hypertension. 6. Mental retardation. 7 Elevated LFT's 8 Anemia Plan Neuro: Monitor neuro status closely and avoid any sedatives CT brain in ED negative for acute intracranial process. Tylenol level < 2, ASA level <1.7, Ammonia level : 21 neuro is following- Dr. Le EEG: bilateral slowing suggestive of a moderately severe diffuse disturbance of cerebral function. No epileptiform features are present Pulm: Continue with oxygen to maintain sats above 92%. Bronchodilators, CV: Monitor HR and BP keep MAP>65 mmHg. Lactic acid 1.2, Echo showed EF 35-40%, inferior wall hypokinesis cards is following- Dr. Moss : Monitor renal function, I's and O's and electrolyte replacement per protocol. IVF D10 @50ml/hr GI: on Pepcid for GI prophylaxis, on Puree diet per speech and NGT feeds ( Jevity 1.5) per GI MRCP abdomen: No intra-or extrahepatic biliary ductal dilatation. Might benefit from PEG tube placement as patient is severely malnourished Monitor LFT's, ( trending down), Hepatitis profile is negative US liver: No gallstones or ductal dilatation. Right-sided medical renal disease. Trace free fluid. Tylenol level < 2. GI is following for MRCP when stable. ID: Monitor for signs infections, which include fever and WBC. Endo: SSI with Accu-Cheks q.4 , on D10NS@50ml/hr, HC 100mg IV Q8 TSH: 4.9, FT3:0.88, FT4:0.88, On Synthroid 37.5 mcg PO daily Heme: Monitor CBC. GI prophylaxis with Pepcid and DVT prophylaxis with SCDs, heparin subQ held given anemia and Hemoccult positive Palliative care is following Level 2 Venu Garrett MD Feb 24, 2018 09:22
--- NOTE | 2018-02-24 11:47 | HHI.GIFU ---
Subjective Remarks Pt remains confused, in soft wrist restraints Now has bear hugger for core temp of 95 Pt took out her NGT, currently receiving D10 4 BMs documented over night (Beatrice Orr) Objective Vitals I&O Vital Signs Date Time Temp Pulse Resp B/P (MAP) Pulse Ox O2 Delivery O2 Flow Rate FiO2 02/24/18 10:31 96.1 58 10 173/73 (106) 100 02/24/18 10:00 58 02/24/18 10:00 95.5 58 13 146/65 (92) 100 02/24/18 09:30 95.0 58 10 152/65 (94) 100 02/24/18 09:00 94.6 56 10 157/67 (97) 100 02/24/18 08:30 94.8 50 11 179/74 (109) 100 02/24/18 08:18 94.8 56 30 197/86 (123) 100 02/24/18 08:16 94.8 56 14 82/52 (62) 100 02/24/18 08:11 100 Nasal Cannula 3.00 02/24/18 08:05 95.0 51 14 189/77 (114) 75 02/24/18 08:01 95.0 54 23 169/130 (143) 02/24/18 08:00 95.0 56 30 02/24/18 08:00 56 02/24/18 06:00 50 02/24/18 04:00 98.8 59 18 141/65 (90) 02/24/18 04:00 59 02/24/18 02:00 56 02/24/18 00:00 99.0 63 11 146/67 (93) 100 02/24/18 00:00 63 02/23/18 22:55 69 02/23/18 20:00 75 02/23/18 20:00 99.5 75 134/59 (84) 02/23/18 19:47 99 Nasal Cannula 3.00 02/23/18 19:30 73 02/23/18 19:00 74 02/23/18 18:30 70 02/23/18 18:00 72 02/23/18 17:00 94.1 70 123/58 (79) 100 02/23/18 17:00 70 02/23/18 16:30 97.9 84 145/63 (90) 100 02/23/18 16:30 84 02/23/18 16:00 69 02/23/18 16:00 97.9 69 148/63 (91) 100 02/23/18 14:00 63 02/23/18 13:00 55 02/23/18 12:30 59 02/23/18 12:30 95.0 59 127/60 (82) 100 02/23/18 12:00 94.5 60 129/59 (82) 100 02/23/18 12:00 60 I/O 02/23/18 02/23/18 02/23/18 02/24/18 02/24/18 02/24/18 07:00 15:00 23:00 07:00 15:00 23:00 Intake Total 120 ml 988 ml Balance 120 ml 988 ml Intake Oral 120 ml IV Total 988 ml # Voids 1 3 4 # Bowel Movements 1 2 2 Laboratory Laboratory Tests Test 02/23/18 11:43 02/24/18 04:35 White Blood Count 5.4 6.4 Red Blood Count 2.78 3.03 Hemoglobin 7.8 8.4 Hematocrit 24.0 26.5 Mean Corpuscular Volume 86.6 87.6 Mean Corpuscular Hemoglobin 27.9 27.8 Mean Corpuscular Hemoglobin Concent 32.3 31.7 Red Cell Distribution Width 19.2 19.6 Platelet Count 103 172 Mean Platelet Volume 8.6 8.5 Neutrophils (%) (Auto) 90.6 80.8 Lymphocytes (%) (Auto) 8.1 15.8 Monocytes (%) (Auto) 1.1 2.9 Eosinophils (%) (Auto) 0.0 0.1 Basophils (%) (Auto) 0.2 0.4 Neutrophils # (Auto) 4.9 5.2 Lymphocytes # (Auto) 0.4 1.0 Monocytes # (Auto) 0.1 0.2 Eosinophils # (Auto) 0.0 0.0 Basophils # (Auto) 0.0 0.0 CBC Comment DIFF FINAL DIFF FINAL Differential Comment Blood Urea Nitrogen 44 Creatinine 0.99 Random Glucose 70 Calcium Level 8.0 Phosphorus Level 3.6 Magnesium Level 1.9 Sodium Level 145 Potassium Level 4.2 Chloride Level 116 Carbon Dioxide Level 19.9 Anion Gap 9 Estimat Glomerular Filtration Rate 69 Date/Time Source Procedure Growth Status 02/23/18 09:13 Stool Stool Stool Occult Blood (NAVNEET) - Final HEMOCCULT POSITIVE Complete Imaging Last Impressions Cholangiopancreatography MRI 02/23/18 0000 Signed Impressions: Service Date/Time: Friday, February 23, 2018 22:07 - CONCLUSION: 1. No intra-or extrahepatic biliary ductal dilatation. 2. Hepatic cysts. 3. Bilateral pleural effusions. Dagoberto Talbot MD Abdomen X-Ray 02/23/18 0000 Signed Impressions: Service Date/Time: Friday, February 23, 2018 15:58 - CONCLUSION: No contraindication to MRI seen on the film Osito Pereira MD Liver Ultrasound 02/20/18 0000 Signed Impressions: Service Date/Time: Tuesday, February 20, 2018 18:47 - CONCLUSION: 1. No gallstones or ductal dilatation. Right-sided medical renal disease. Trace free fluid. Javier Walden MD Head CT 02/20/18 0000 Signed Impressions: Service Date/Time: Tuesday, February 20, 2018 13:57 - CONCLUSION: No acute disease. Bud Benton Jr., MD Chest X-Ray 02/20/18 0000 Signed Impressions: Service Date/Time: Tuesday, February 20, 2018 14:00 - CONCLUSION: Minimal parenchymal changes left base. 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 Unsure if pts has previous history of liver issues. No previous labs to compare this to. Liver US (02/20) --> No gallstones or ductal dilatation. Right-sided medical renal disease. Trace free fluid. Attempted to call listed contact, [place], however went straight to voicemail. Unable to obtain history from pt, she is moving all extremities, but nonverbal. Unsure of her baseline, per RN she lives with a non-relative roommate - AMS- Initially called as a stroke alert- found to be hypoglycemia- corrected- CT head negative- per neurologist not CVA (02/22) Pt remains confused. LFTs trending down. Liver VILA pending. ? shocked liver. Pt is cachectic and nutrition depleted. Pt would likely benefit from a PEG tube. Attempted to call only contacts listed Swati, at two separate numbers. She answered and quickly after hung up. This is pts non relative roommate, I am unsure if she is also the medical decision maker. Vit D replacement started. (02/24) Pt remains confused, in four point soft restraints. She was receiving TF through NGT, however pt ripped this out. Discussed case with María from Palliative care, only contact for pt is a non-relative roommate that has been caring for her, this person does not have legal paperwork to make decisions. Palliative has requested accurints report from case management and further decisions regarding pt treatment dependent on this. LFTs are continuing to trend down, suggesting shock liver. Hepatitis panel and CONNIE negative. Rest of liver VILA is pending. At this time, given improvement in LFTs, our service will sign off and will be available if needed Regarding nutrition, once a legal decision maker is appointed, our service can be reconsulted if a PEG tube is decided upon Plan: - Monitor LFTs, trending down - Nutrition- NGT to TF if pt will allow - GI will sign off, please reconsult as needed - If legal decision maker decides on PEG placement please notify our service Pt has been seen and examined by myself and Dr. Spence and this note is written on his behalf (Beatrice Orr) Physician Comments Patient seen and examined Agree with above Continue with current supportive care Monitor labs Family now wanting PEG placement will plan for tomorrow (Raffaele Spence MD) Beatrice Orr Feb 24, 2018 11:47 Raffaele Spence MD Feb 24, 2018 20:51
--- NOTE | 2018-02-24 12:01 | PD.CARD.PN ---
Subjective Subjective Remarks Mild bradycardia noted More awake today, still confused, unable to determine what she is saying Objective Medications Current Medications Medications (Trade) Dose Ordered Sig/Arabella Route Start Time Stop Time Status Last Admin (Pepcid Inj) 20 mg Q12HR IV PUSH 02/20/18 21:00 02/24/18 07:41 (Duoneb Neb) 1 ampule Q6HR NEB INH 02/20/18 16:00 02/24/18 08:11 (Duoneb Neb) 1 ampule Q2HR NEB PRN INH 02/20/18 14:45 Miscellaneous Information 1 Q361D XX 02/20/18 14:45 (Chlorhexidine 2% Cloth) 3 pack Taper DAILY@04 TOP 02/21/18 04:00 02/17/19 03:59 02/24/18 04:00 (Chlorhexidine 2% Cloth) 3 pack UNSCH PRN TOP 02/20/18 14:45 (Lay-Colace) 1 tab BID PO 02/20/18 21:00 02/22/18 07:55 (Milk Of Magnesia Liq) 30 ml Q12H PRN PO 02/20/18 14:45 (Senokot) 17.2 mg Q12H PRN PO 02/20/18 14:45 (Dulcolax Supp) 10 mg DAILY PRN RECTAL 02/20/18 14:45 (Lactulose Liq) 30 ml DAILY PRN PO 02/20/18 14:45 (D50w (Vial) Inj) 50 ml UNSCH PRN IV PUSH 02/20/18 14:45 02/23/18 06:49 (Glucagon Inj) 1 mg UNSCH PRN OTHER 02/20/18 14:45 (SoluCORTEF INJ) 100 mg Q8H IV PUSH 02/21/18 08:00 02/24/18 07:41 (Vitamin D Liq) 2,000 units DAILY PO 02/22/18 09:00 02/24/18 07:41 (NovoLIN R SUPPLEMENTAL SCALE) 1 Q4HR SQ 02/23/18 04:00 Sodium Chloride 154 meq/Dextrose 1,038.5 ml @ 50 mls/hr [id number] IV 02/23/18 11:00 02/24/18 07:40 (Synthroid) 37.5 mcg DAILY@0600 PO 02/24/18 06:00 3/27/18 06:00 Vital Signs / I&O Vital Signs Date Time Temp Pulse Resp B/P (MAP) Pulse Ox O2 Delivery O2 Flow Rate FiO2 02/24/18 10:31 96.1 58 10 173/73 (106) 100 02/24/18 10:00 58 02/24/18 10:00 95.5 58 13 146/65 (92) 100 02/24/18 09:30 95.0 58 10 152/65 (94) 100 02/24/18 09:00 94.6 56 10 157/67 (97) 100 02/24/18 08:30 94.8 50 11 179/74 (109) 100 02/24/18 08:18 94.8 56 30 197/86 (123) 100 02/24/18 08:16 94.8 56 14 82/52 (62) 100 02/24/18 08:11 100 Nasal Cannula 3.00 02/24/18 08:05 95.0 51 14 189/77 (114) 75 02/24/18 08:01 95.0 54 23 169/130 (143) 02/24/18 08:00 95.0 56 30 02/24/18 08:00 56 02/24/18 06:00 50 02/24/18 04:00 98.8 59 18 141/65 (90) 02/24/18 04:00 59 02/24/18 02:00 56 02/24/18 00:00 99.0 63 11 146/67 (93) 100 02/24/18 00:00 63 02/23/18 22:55 69 02/23/18 20:00 75 02/23/18 20:00 99.5 75 134/59 (84) 02/23/18 19:47 99 Nasal Cannula 3.00 02/23/18 19:30 73 02/23/18 19:00 74 02/23/18 18:30 70 02/23/18 18:00 72 02/23/18 17:00 94.1 70 123/58 (79) 100 02/23/18 17:00 70 02/23/18 16:30 97.9 84 145/63 (90) 100 02/23/18 16:30 84 02/23/18 16:00 69 02/23/18 16:00 97.9 69 148/63 (91) 100 02/23/18 14:00 63 02/23/18 13:00 55 02/23/18 12:30 59 02/23/18 12:30 95.0 59 127/60 (82) 100 02/23/18 12:00 94.5 60 129/59 (82) 100 02/23/18 12:00 60 I/O 02/23/18 02/23/18 02/23/18 02/24/18 02/24/18 02/24/18 07:00 15:00 23:00 07:00 15:00 23:00 Intake Total 120 ml 988 ml Balance 120 ml 988 ml Intake Oral 120 ml IV Total 988 ml # Voids 1 3 4 # Bowel Movements 1 2 2 Physical Exam GENERAL: NAD SKIN: Warm and dry. HEAD: Atraumatic. Normocephalic. EYES: Pupils equal and round. No scleral icterus. No injection or drainage. ENT: No nasal bleeding or discharge. Mucous membranes pink and moist. NECK: Trachea midline. No JVD. CARDIOVASCULAR: Regular rate and rhythm. RESPIRATORY: No accessory muscle use. Clear to auscultation. Breath sounds equal bilaterally. GASTROINTESTINAL: Abdomen soft, non-tender, nondistended. Hepatic and splenic margins not palpable. MUSCULOSKELETAL: Upper extremities contracted NEUROLOGICAL: No obvious focal defects Laboratory Laboratory Tests Test 02/24/18 04:35 White Blood Count 6.4 TH/MM3 Red Blood Count 3.03 MIL/MM3 Hemoglobin 8.4 GM/DL Hematocrit 26.5 % Mean Corpuscular Volume 87.6 FL Mean Corpuscular Hemoglobin 27.8 PG Mean Corpuscular Hemoglobin Concent 31.7 % Red Cell Distribution Width 19.6 % Platelet Count 172 TH/MM3 Mean Platelet Volume 8.5 FL Neutrophils (%) (Auto) 80.8 % Lymphocytes (%) (Auto) 15.8 % Monocytes (%) (Auto) 2.9 % Eosinophils (%) (Auto) 0.1 % Basophils (%) (Auto) 0.4 % Neutrophils # (Auto) 5.2 TH/MM3 Lymphocytes # (Auto) 1.0 TH/MM3 Monocytes # (Auto) 0.2 TH/MM3 Eosinophils # (Auto) 0.0 TH/MM3 Basophils # (Auto) 0.0 TH/MM3 CBC Comment DIFF FINAL Differential Comment Blood Urea Nitrogen 44 MG/DL Creatinine 0.99 MG/DL Random Glucose 70 MG/DL Calcium Level 8.0 MG/DL Phosphorus Level 3.6 MG/DL Magnesium Level 1.9 MG/DL Sodium Level 145 MEQ/L Potassium Level 4.2 MEQ/L Chloride Level 116 MEQ/L Carbon Dioxide Level 19.9 MEQ/L Anion Gap 9 MEQ/L Estimat Glomerular Filtration Rate 69 ML/MIN Assessment and Plan Problem List: (1) Bradycardia ICD Codes: R00.1 - Bradycardia, unspecified Status: Acute (2) Altered mental status ICD Codes: R41.82 - Altered mental status Status: Acute (3) Hypokalemia ICD Codes: E87.6 - Hypokalemia Status: Acute (4) Dyspnea ICD Codes: R06.00 - Dyspnea, unspecified (5) Anemia ICD Codes: D64.9 - Anemia, unspecified Status: Acute (6) Cachectic ICD Codes: R64 - Cachexia Status: Acute Assessment and Plan 1) Bradycardia Mild, hemodynamically stable Keep Atropine/pacing pads at the bedside Avoid AV chaparrita blocking meds 2) Altered mental status Per primary team, unsure what baseline is at this point 3) Mental retardation 4) EF 35-40%, no further work up 5) Hypothyroidism per primary team 6) Malnutrition/cachexia 7) Will see PRN, call with questions Problem Qualifiers (1) Altered mental status: Qualified Codes: R41.82 - Altered mental status, unspecified (2) Anemia: Qualified Codes: D64.9 - Anemia, unspecified Jarett Moss DO Feb 24, 2018 12:01
--- NOTE | 2018-02-24 12:34 | HHI.HCSW ---
Nursery Helper Visit Advance Directive [employer] requested on patient. Results produced: 1 relative listed Geovanni Campbell (78) .~ Ran relatives for Geovanni, no additional relatives listed. Given no family able to be identified, would recommend proceeding with caregiver Swati as health care proxy. If unwilling/unable to serve as health care proxy, social work advantage would be appropriate. . Patricia Benton, BUSINESS MANAGER Feb 24, 2018 12:34
[2018-02-24 14:04] LABS: SMOOTH MUSCLE TOTAL AUTOABS Negative (Negative)
[2018-02-24 14:52] LABS: ALPHA-1-ANTITRYPSIN 169 mg/dL (100 - 190)
--- NOTE | 2018-02-24 16:01 | HHI.HCPN ---
Reason for visit a. To assist with evaluation and management of symptoms including: confusion. b. To assist medical decision maker(s) with: better understanding of current medical conditions; weighing benefits/burdens of medical treatment options; making medical treatment decisions. . Subjective/Interval History Seen to follow-up on symptom management and address goals of care with decision- maker. She remains resting in bed in no acute distress, she pulled out her NG tube today despite restraints. Vital signs remained stable, blood pressure 154/64, heart rate 74, respiratory rate 13, oxygen saturation 100% on room air afebrile. She is eating when fed and having regular bowel movements. Her mental status remains altered, her speech is unintelligible. She frequently does not respond to questions or follow commands. Clinical course: * Laboratory: WBC 6.4, hemoglobin 8.4, hematocrit 26.5, platelets 172, sodium 145, potassium 4.2, chloride 116, carbon dioxide 19.9, BUN 44, creatinine 0.99, calcium 8.0, 02/23 AST 311, ALT 340, alkaline phosphatase 199, trending down from previous. * Microbiology: Occult blood stool was positive. * Radiology: * KUB shows no contraindication to MRI seen on the film. * MRCP without contrast 02/23 shows no intra-or extrahepatic biliary ductal dilation, hepatic cysts and bilateral pleural effusions. [employer] report was run showing only relative to be her father, who is known to be from a previous [facility] admission. No other family members were found. . Family/friend interactions Per my discussion with legal stenographer, Sarah, yesterday, as there is no available family found by [employer], social media search for history obtained from the patient's caregiver, Swati Gutierrez would be the proxy legal decision maker if she so chose. Spoke with Swati Gutierrez, who has been the patient's caregiver since the of her father, and agrees to continue to be the patient's decision-maker, states that the care of the patient is becoming greater than she can manage and believes that it is in the patient's best interest to go to a [facility] facility from [facility]. We discussed CODE STATUS and it was her opinion that she should be a DO NOT RESUSCITATE. We also discussed the patient's difficulty in maintaining weight and she states that regardless of how much she ate, she continued to lose weight and believes that a PEG tube would be in her best interest. This was discussed with Dr. Mccallum who is in agreement with this. Consents were placed on the chart and discussed with the nurse, Kelly, who will obtained telephone consent and schedule the procedure with GI. [place] DNR form was also placed on the chart for the signature of Ms. Gutierrez.This was discussed with correctional casework specialist Nanci Bass who is in process of consulting nursing homes for evaluation. . Advance Directives Living Will: Never completed Health Care Surrogate: Never completed Durable Power of Therapy Assistant: Never completed Advance Directive Specifics Health Care Surrogate(s): Patient is not capacitated to make her own health care decisions, will not regain capacity. 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 Pending [employer] report to determine if any other family can be found or if she can serve as the legal decision maker. . Objective Vital Signs Date Time Temp Pulse Resp B/P (MAP) Pulse Ox O2 Delivery O2 Flow Rate FiO2 02/24/18 14:30 74 02/24/18 14:00 89 02/24/18 13:00 97.5 69 13 154/64 (94) 100 02/24/18 12:30 97.0 67 14 153/66 (95) 100 02/24/18 12:00 96.3 66 13 157/65 (95) 100 02/24/18 12:00 66 02/24/18 10:31 96.1 58 10 173/73 (106) 100 02/24/18 10:00 58 02/24/18 10:00 95.5 58 13 146/65 (92) 100 02/24/18 09:30 95.0 58 10 152/65 (94) 100 02/24/18 09:00 94.6 56 10 157/67 (97) 100 02/24/18 08:30 94.8 50 11 179/74 (109) 100 02/24/18 08:18 94.8 56 30 197/86 (123) 100 02/24/18 08:16 94.8 56 14 82/52 (62) 100 02/24/18 08:11 100 Nasal Cannula 3.00 02/24/18 08:05 95.0 51 14 189/77 (114) 75 02/24/18 08:01 95.0 54 23 169/130 (143) 02/24/18 08:00 95.0 56 30 02/24/18 08:00 56 02/24/18 06:00 50 02/24/18 04:00 98.8 59 18 141/65 (90) 02/24/18 04:00 59 02/24/18 02:00 56 02/24/18 00:00 99.0 63 11 146/67 (93) 100 02/24/18 00:00 63 02/23/18 22:55 69 02/23/18 20:00 75 02/23/18 20:00 99.5 75 134/59 (84) 02/23/18 19:47 99 Nasal Cannula 3.00 02/23/18 19:30 73 02/23/18 19:00 74 02/23/18 18:30 70 02/23/18 18:00 72 02/23/18 17:00 94.1 70 123/58 (79) 100 02/23/18 17:00 70 02/23/18 16:30 97.9 84 145/63 (90) 100 02/23/18 16:30 84 02/23/18 16:00 69 02/23/18 16:00 97.9 69 148/63 (91) 100 Intake & Output 02/24/18 02/24/18 07:00 19:00 Intake Total 988 ml Balance 988 ml IV Total 988 ml # Voids 4 # Bowel Movements 2 Physical Exam CONSTITUTIONAL/GENERAL: This is a frail, cachectic female patient, in no apparent distress. TUBES/LINES/DRAINS: NC, PIV. ENT: Opens eyes to voice spontaneously. Speech slurred, unable to understand. CARDIOVASCULAR: Regular rate and rhythm without murmurs, gallops, or rubs. No JVD. RESPIRATORY/CHEST: Symmetric, unlabored respirations. Diminished, clear. GASTROINTESTINAL: Abdomen soft, non-tender, nondistended. No guarding. Bowel sounds present. GENITOURINARY: Without palpable bladder distension. MUSCULOSKELETAL: Extremities without clubbing, cyanosis, or edema. No mottling or clubbing. LYMPHATICS: No palpable cervical or supraclavicular adenopathy. NEUROLOGICAL: Awakens to voice. Speech slurred, unintelligible. Turns head to the right when trying to speak. Moves all extremities. PSYCHIATRIC: confused. . Diagnostic Tests Laboratory Laboratory Tests Test 02/22/18 05:58 02/22/18 09:00 02/22/18 13:26 02/23/18 03:30 White Blood Count 5.7 TH/MM3 (4.0-11.0) 6.7 TH/MM3 (4.0-11.0) Red Blood Count 2.75 MIL/MM3 (4.00-5.30) 2.73 MIL/MM3 (4.00-5.30) Hemoglobin 7.7 GM/DL (11.6-15.3) 9.0 GM/DL (11.6-15.3) 7.7 GM/DL (11.6-15.3) Hematocrit 23.7 % (35.0-46.0) 27.7 % (35.0-46.0) 23.8 % (35.0-46.0) Mean Corpuscular Volume 86.1 FL (80.0-100.0) 87.2 FL (80.0-100.0) Mean Corpuscular Hemoglobin 27.9 PG (27.0-34.0) 28.0 PG (27.0-34.0) Mean Corpuscular Hemoglobin Concent 32.4 % (32.0-36.0) 32.1 % (32.0-36.0) Red Cell Distribution Width 19.3 % (11.6-17.2) 19.2 % (11.6-17.2) Platelet Count 103 TH/MM3 (150-450) 89 TH/MM3 (150-450) Mean Platelet Volume 9.0 FL (7.0-11.0) 9.2 FL (7.0-11.0) Neutrophils (%) (Auto) 86.9 % (16.0-70.0) 79.8 % (16.0-70.0) Lymphocytes (%) (Auto) 12.1 % (9.0-44.0) 16.8 % (9.0-44.0) Monocytes (%) (Auto) 0.9 % (0.0-8.0) 3.1 % (0.0-8.0) Eosinophils (%) (Auto) 0.0 % (0.0-4.0) 0.0 % (0.0-4.0) Basophils (%) (Auto) 0.1 % (0.0-2.0) 0.3 % (0.0-2.0) Neutrophils # (Auto) 4.9 TH/MM3 (1.8-7.7) 5.4 TH/MM3 (1.8-7.7) Lymphocytes # (Auto) 0.7 TH/MM3 (1.0-4.8) 1.1 TH/MM3 (1.0-4.8) Monocytes # (Auto) 0.1 TH/MM3 (0-0.9) 0.2 TH/MM3 (0-0.9) Eosinophils # (Auto) 0.0 TH/MM3 (0-0.4) 0.0 TH/MM3 (0-0.4) Basophils # (Auto) 0.0 TH/MM3 (0-0.2) 0.0 TH/MM3 (0-0.2) CBC Comment DIFF FINAL AUTO DIFF Differential Comment AUTO DIFF CONFIRMED Blood Urea Nitrogen 29 MG/DL (7-18) 31 MG/DL (7-18) Creatinine 0.58 MG/DL (0.50-1.00) 0.68 MG/DL (0.50-1.00) Random Glucose 89 MG/DL (74-106) 62 MG/DL (74-106) Total Protein 6.1 GM/DL (6.4-8.2) 6.0 GM/DL (6.4-8.2) Albumin 2.3 GM/DL (3.4-5.0) 2.3 GM/DL (3.4-5.0) Calcium Level 7.4 MG/DL (8.5-10.1) 7.8 MG/DL (8.5-10.1) Phosphorus Level 3.2 MG/DL (2.5-4.9) 3.0 MG/DL (2.5-4.9) Magnesium Level 1.7 MG/DL (1.5-2.5) 1.7 MG/DL (1.5-2.5) Alkaline Phosphatase 233 U/L (45-117) 199 U/L (45-117) Aspartate Amino Transf (AST/SGOT) 535 U/L (15-37) 311 U/L (15-37) Alanine Aminotransferase (ALT/SGPT) 427 U/L (10-53) 340 U/L (10-53) Total Bilirubin 0.3 MG/DL (0.2-1.0) 0.3 MG/DL (0.2-1.0) Sodium Level 142 MEQ/L (136-145) 143 MEQ/L (136-145) Potassium Level 3.7 MEQ/L (3.5-5.1) 3.6 MEQ/L (3.5-5.1) Chloride Level 110 MEQ/L (98-107) 114 MEQ/L (98-107) Carbon Dioxide Level 21.6 MEQ/L (21.0-32.0) 21.3 MEQ/L (21.0-32.0) Anion Gap 10 MEQ/L (5-15) 8 MEQ/L (5-15) Estimat Glomerular Filtration Rate 127 ML/MIN (>89) 106 ML/MIN (>89) Protein Corrected Calcium 7.9 MG/DL (8.5-10.1) [id number] 169 mg/dL (100 - 190) Anti-Nuclear Antibody Screen NEG (NEG) Anti-Smooth Muscle Antibody Negative (Negative) Platelet Estimate LOW (NORMAL) Platelet Morphology Comment NORMAL (NORMAL) Ovalocytes 1+ (NORMAL) Test 02/23/18 11:43 02/24/18 04:35 White Blood Count 5.4 TH/MM3 (4.0-11.0) 6.4 TH/MM3 (4.0-11.0) Red Blood Count 2.78 MIL/MM3 (4.00-5.30) 3.03 MIL/MM3 (4.00-5.30) Hemoglobin 7.8 GM/DL (11.6-15.3) 8.4 GM/DL (11.6-15.3) Hematocrit 24.0 % (35.0-46.0) 26.5 % (35.0-46.0) Mean Corpuscular Volume 86.6 FL (80.0-100.0) 87.6 FL (80.0-100.0) Mean Corpuscular Hemoglobin 27.9 PG (27.0-34.0) 27.8 PG (27.0-34.0) Mean Corpuscular Hemoglobin Concent 32.3 % (32.0-36.0) 31.7 % (32.0-36.0) Red Cell Distribution Width 19.2 % (11.6-17.2) 19.6 % (11.6-17.2) Platelet Count 103 TH/MM3 (150-450) 172 TH/MM3 (150-450) Mean Platelet Volume 8.6 FL (7.0-11.0) 8.5 FL (7.0-11.0) Neutrophils (%) (Auto) 90.6 % (16.0-70.0) 80.8 % (16.0-70.0) Lymphocytes (%) (Auto) 8.1 % (9.0-44.0) 15.8 % (9.0-44.0) Monocytes (%) (Auto) 1.1 % (0.0-8.0) 2.9 % (0.0-8.0) Eosinophils (%) (Auto) 0.0 % (0.0-4.0) 0.1 % (0.0-4.0) Basophils (%) (Auto) 0.2 % (0.0-2.0) 0.4 % (0.0-2.0) Neutrophils # (Auto) 4.9 TH/MM3 (1.8-7.7) 5.2 TH/MM3 (1.8-7.7) Lymphocytes # (Auto) 0.4 TH/MM3 (1.0-4.8) 1.0 TH/MM3 (1.0-4.8) Monocytes # (Auto) 0.1 TH/MM3 (0-0.9) 0.2 TH/MM3 (0-0.9) Eosinophils # (Auto) 0.0 TH/MM3 (0-0.4) 0.0 TH/MM3 (0-0.4) Basophils # (Auto) 0.0 TH/MM3 (0-0.2) 0.0 TH/MM3 (0-0.2) CBC Comment DIFF FINAL DIFF FINAL Differential Comment Blood Urea Nitrogen 44 MG/DL (7-18) Creatinine 0.99 MG/DL (0.50-1.00) Random Glucose 70 MG/DL (74-106) Calcium Level 8.0 MG/DL (8.5-10.1) Phosphorus Level 3.6 MG/DL (2.5-4.9) Magnesium Level 1.9 MG/DL (1.5-2.5) Sodium Level 145 MEQ/L (136-145) Potassium Level 4.2 MEQ/L (3.5-5.1) Chloride Level 116 MEQ/L (98-107) Carbon Dioxide Level 19.9 MEQ/L (21.0-32.0) Anion Gap 9 MEQ/L (5-15) Estimat Glomerular Filtration Rate 69 ML/MIN (>89) Result Diagram: 02/24/18 0435 02/24/18 0435 Microbiology Microbiology Date/Time Source Procedure Growth Status 02/23/18 09:13 Stool Stool Stool Occult Blood (NAVNEET) - Final HEMOCCULT POSITIVE Complete Imaging Last Impressions Cholangiopancreatography MRI 02/23/18 0000 Signed Impressions: Service Date/Time: Friday, February 23, 2018 22:07 - CONCLUSION: 1. No intra-or extrahepatic biliary ductal dilatation. 2. Hepatic cysts. 3. Bilateral pleural effusions. Dagoberto Talbot MD Abdomen X-Ray 02/23/18 0000 Signed Impressions: Service Date/Time: Friday, February 23, 2018 15:58 - CONCLUSION: No contraindication to MRI seen on the film Osito Pereira MD Liver Ultrasound 02/20/18 0000 Signed Impressions: Service Date/Time: Tuesday, February 20, 2018 18:47 - CONCLUSION: 1. No gallstones or ductal dilatation. Right-sided medical renal disease. Trace free fluid. Javier Walden MD Head CT 02/20/18 0000 Signed Impressions: Service Date/Time: Tuesday, February 20, 2018 13:57 - CONCLUSION: No acute disease. Bud Benton Jr., MD Chest X-Ray 02/20/18 0000 Signed Impressions: Service Date/Time: Tuesday, February 20, 2018 14:00 - CONCLUSION: Minimal parenchymal changes left base. Sudhakar Angel MD FACR . 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 No other known family. [employer] returned no additional family leads. Spiritual:Unknown. Legal: Patient is not capacitated to make her own health care decisions, will not regain capacity. As [employer] report failed to identify any other family, Swati Gutierrez will be the legal decision maker per Sarah in legal department. Ethical issues impacting care: No known concerns at this time. . Important Contacts * Swati Gutierrez, legal guardian: . . Prognosis Will need additional testing to better prognosticate. However this patient appears quite frail, cachectic and debilitated which puts her at high risk for further setbacks and decline. . Code Status: No Code Plan * Decision Maker: Patient is not capacitated to make her own health care decisions, will not regain capacity. Swati Gutierrez is willing to be the decision maker and would be proxy as no other family was found by [employer], per the legal department.. * DO NOT RESUSCITATE. * Palliative care spoke with Swati Gutierrez at updated number and are working with legal to determine decision-maker. * SYMPTOMS: Confusion: Altered mental status secondary to reported mental retardation and underlying dementia. Possibly complicated by infection, hypoglycemia, possible stroke, other. * Palliative care will continue to follow throughout hospital course to assist with symptom management and clarification of goals as needed. . Time Spent >50% Counseling/Coord of Care: No Attestation To help prompt me to consider important information that might be impacting today's encounter and assessment, information from prior notes written by myself or my colleagues may have been "brought forward" into today's note. My signature on this note, however, is an attestation that I personally performed the exam, history, and/or decision-making noted today, and, unless otherwise indicated, the interactions with patient, family, and staff as well as the review of records all occurred today. I also attest that the listed assessment and stated plan reflect my best clinical judgment today based on the combination of historical information, prior notes, and today's exam/ interactions. When time spent is documented, it refers only to time spent today by the signer, or if indicated, combined time spent today by collaborating physician/nurse practitioner. . María Tolbert Feb 24, 2018 4:01 pm
[2018-02-24] MEDS: FAMOTIDINE 20 MG TAB PO SCH (20:48)
[2018-02-24] MEDS: hydrALAZINE HCL 20 MG/ML VIAL IV PUSH PRN (22:15)
[2018-02-25] VITALS (23 sets, daily range): BP systolic 139–185; BP diastolic 62–80; PULSE 45–70; RESP 9–17; TEMP 93.1–98.3; O2SAT 97–100
[2018-02-25] MEDS: CHLORHEXIDINE GLUCONATE 2 % 1 PACK (2 CLOTHS) TOP SCH (01:13)
[2018-02-25] MEDS: INSULIN NovoLIN REGULAR SUPPLEMENTAL SCALE SQ SCH ×7 (04:00→23:36)
[2018-02-25] MEDS: SODIUM CHLORIDE 23.4% INJ 154 MEQ in DEXTROSE 10% INJ 1,000 ML IV SCH (04:39)
[2018-02-25] MEDS: LEVOTHYROXINE SODIUM 25 MCG TAB PO SCH (04:40)
[2018-02-25 08:36] LABS: AUTOMATED NEUTROPHIL # 5.2 TH/MM3 (1.8-7.7); HEMATOCRIT 25.6 % (35.0-46.0); HEMOGLOBIN 8.2 GM/DL (11.6-15.3); LYMPH % 16.2 % (9.0-44.0); MEAN CELL VOLUME 86.9 FL (80.0-100.0); MEAN CORPUSCULAR HEMOGLOBIN 27.9 PG (27.0-34.0); MEAN CORPUSCULAR HGB CONC 32.1 % (32.0-36.0); MEAN PLATELET VOLUME 8.5 FL (7.0-11.0); MONOCYTE # 0.1 TH/MM3 (0-0.9); NEUT % 81.8 % (16.0-70.0); PLATELET COUNT 119 TH/MM3 (150-450); RED BLOOD COUNT 2.94 MIL/MM3 (4.00-5.30); RED CELL DISTRIBUTION WIDTH 19.2 % (11.6-17.2); WHITE BLOOD COUNT 6.3 TH/MM3 (4.0-11.0)
[2018-02-25 09:00] LABS: ALBUMIN 2.3 GM/DL (3.4-5.0); AST (GOT) 136 U/L (15-37); BICARBONATE 22.7 MEQ/L (21.0-32.0); BLOOD UREA NITROGEN 38 MG/DL (7-18); CHLORIDE 116 MEQ/L (98-107); CREATININE 0.81 MG/DL (0.50-1.00); GLOMERULAR FILTRATION RATE 86 ML/MIN (>89); GLUCOSE,RANDOM 100 MG/DL (74-106); MAGNESIUM 1.9 MG/DL (1.5-2.5); PHOSPHORUS 2.7 MG/DL (2.5-4.9); SODIUM (NA) 146 MEQ/L (136-145)
[2018-02-25 09:06] LABS: ALKALINE PHOSPHATASE 196 U/L (45-117); ALT (GPT) 248 U/L (10-53); TOTAL BILIRUBIN ADULT 0.3 MG/DL (0.2-1.0); TOTAL PROTEIN 6.5 GM/DL (6.4-8.2)
[2018-02-25] MEDS: HYDROCORTISONE SOD SUCCINATE 100 MG VIAL IV PUSH SCH ×3 (09:11→22:27)
[2018-02-25] MEDS: FAMOTIDINE 20 MG TAB PO SCH ×2 (09:11→20:36)
[2018-02-25] MEDS: DOCUSATE SODIUM 50 MG/SENNA 8.6 MG TAB PO SCH ×2 (09:11→20:36)
[2018-02-25] MEDS: CHOLECALCIFEROL (VIT D3) LIQ 400 UNITS/ML 50 ML BOTTLE PO SCH (09:12)
[2018-02-25] MEDS ORDERED: LIDOCAINE HCL 1% PF 5 ML SYRINGE OTHER ONE (12:00)
[2018-02-25] MEDS ORDERED: ceFAZolin INJ 1,000 MG VIAL IV ONE (12:00)
[2018-02-25] MEDS ORDERED: SODIUM CHLORIDE 0.9% 20 ML VIAL IV ONE (12:00)
[2018-02-25] MEDS ORDERED: PROPOFOL 200 MG/20 ML AMP IV ONE (12:00)
[2018-02-25 13:51] LABS: ENDOMYSIAL AB SCREEN ND (NEGATIVE); ENDOMYSIAL AB TITER ND (<1:5)
--- NOTE | 2018-02-25 14:23 | HHI.CCPN ---
Subjective Remarks/Hospital Course Patient is a 62-year-old female with a history of hypertension, mental retardation with underlying dementia, who presented to [facility] ED via ambulance as a stroke alert. The patient is status post a fall and hit her forehead. She was found to be hypoglycemic with a blood sugar of 53 and was given 10 grams of D10 and then her sugar was 130. The patient is a very poor historian. She had a CT scan of the brain, which showed no acute disease. In addition, a chest x-ray in the ER showed minimal parenchymal changes left base. ABG was performed on 2 liter nasal cannula, which showed a pH of 7.37, CO2 51, pO2 217, bicarb 29, saturation of 98%. Most of the history was obtained from reviewing the medical records. In the ED, she was hypertensive with a systolic blood pressure 150s to 170s; however, she had intermittent bradycardia with a heart rate in the 40s. The patient is on [address] Le from neurology service was notified regarding the stroke alert, and given her clinical presentation, patient was not a candidate for TPA. 02/21 Patient is on 4L oxygen was hypotensive overnight. Afebrile. 02/22 Patient seems more awake today, hemodynamics overall better. 02/23 No events overnight, hypothermic 02/24 Patient is lying in bed in NAD. MRCP abdomen yesterday no intra-or extrahepatic biliary ductal dilatation. 02/25: Resting in bed. No acute distress. Hypothermic on warming blanket Objective Vital Signs Date Time Temp Pulse Resp B/P (MAP) Pulse Ox O2 Delivery O2 Flow Rate FiO2 02/25/18 12:56 64 12 164/72 (102) 100 02/25/18 12:37 98.0 02/25/18 12:37 Room Air 02/24/18 08:11 3.00 02/22/18 21:37 21 Intake and Output 02/25/18 02/25/18 02/26/18 08:00 16:00 00:00 Intake Total 100 ml Balance 100 ml Result Diagram: 02/25/18 0758 02/25/18 0758 Other Results Microbiology Date/Time Source Procedure Growth Status 02/23/18 09:13 Stool Stool Stool Occult Blood (NAVNEET) - Final HEMOCCULT POSITIVE Complete Imaging Last Impressions Abdomen X-Ray 02/23/18 0000 Signed Impressions: Service Date/Time: Friday, February 23, 2018 15:58 - CONCLUSION: No contraindication to MRI seen on the film Osito Pereira MD Liver Ultrasound 02/20/18 0000 Signed Impressions: Service Date/Time: Tuesday, February 20, 2018 18:47 - CONCLUSION: 1. No gallstones or ductal dilatation. Right-sided medical renal disease. Trace free fluid. Javier Walden MD Head CT 02/20/18 0000 Signed Impressions: Service Date/Time: Tuesday, February 20, 2018 13:57 - CONCLUSION: No acute disease. Bud Benton Jr., MD Chest X-Ray 02/20/18 0000 Signed Impressions: Service Date/Time: Tuesday, February 20, 2018 14:00 - CONCLUSION: Minimal parenchymal changes left base. Sudhakar Angel MD FACR Objective Remarks GENERAL: Patient is 62 yo lying in bed in no acute resp distress SKIN: Warm and dry. HEAD: Normocephalic. EYES: No scleral icterus. No injection or drainage. NECK: Supple, trachea midline. No JVD or lymphadenopathy. CARDIOVASCULAR: Regular rate and rhythm without murmurs, gallops, or rubs. RESPIRATORY: Breath sounds equal bilaterally. No accessory muscle use. GASTROINTESTINAL: Abdomen soft, non-tender, nondistended. MUSCULOSKELETAL: No cyanosis, or edema. Neuro: More awake A/P Assessment and Plan 1. Respiratory insufficiency. 2. Altered mental status. 3. Status post hypoglycemic episode. 4. Bradycardia. 5. History of hypertension. 6. Mental retardation. 7 Elevated LFT's 8 Anemia Plan Neuro: Monitor neuro status closely and avoid any sedatives CT brain in ED negative for acute intracranial process. Tylenol level < 2, ASA level <1.7, Ammonia level : 21 neuro is following- Dr. Le EEG: bilateral slowing suggestive of a moderately severe diffuse disturbance of cerebral function. No epileptiform features are present Pulm: Continue with oxygen to maintain sats above 92%. Bronchodilators, CV: Monitor HR and BP keep MAP>65 mmHg. Lactic acid 1.2, Echo showed EF 35-40%, inferior wall hypokinesis cards is following- Dr. Moss : Monitor renal function, I's and O's and electrolyte replacement per protocol. IVF D10 @50ml/hr GI: on Pepcid for GI prophylaxis, on Puree diet per speech and NGT feeds ( Jevity 1.5) per GI MRCP abdomen: No intra-or extrahepatic biliary ductal dilatation. Scheduled for PEG tube placement for 02/25 as patient is severely malnourished Monitor LFT's, ( trending down), Hepatitis profile is negative US liver: No gallstones or ductal dilatation. Right-sided medical renal disease. Trace free fluid. Tylenol level < 2. GI is following for MRCP when stable. ID: Monitor for signs infections, which include fever and WBC. Endo: SSI with Accu-Cheks q.4 , on D10NS@50ml/hr, HC 100mg IV Q8 TSH: 4.9, FT3:0.88, FT4:0.88, On Synthroid 37.5 mcg PO daily Heme: Monitor CBC. GI prophylaxis with Pepcid and DVT prophylaxis with SCDs, heparin subQ held given anemia and Hemoccult positive Palliative care is following Level 2 Santiago Alvarez MD Feb 25, 2018 14:23
[2018-02-25] MEDS ORDERED: DO NOT ADM ANY ANTICOAGULANT DRUGS PRN (15:30)
[2018-02-25] MEDS ORDERED: *ENALAPRILAT 1.25 MG/ML VIAL PERIprocedural Use ONLY ONE (16:04)
[2018-02-25] MEDS ORDERED: POTASSIUM CHLORIDE 20 MEQ PWD PACKET PO ONE (17:30)
--- NOTE | 2018-02-25 18:56 | PD.PROCEDR ---
GI Procedure PROCEDURE PERFORMED EGD with PEG placement INDICATION FOR PROCEDURE Malnutrition, poor oral intake PROCEDURE: The procedure, risks and benefits were discussed with Ms. العراقي and informed consent was obtained. Anesthesia sedated her with Diprivan. She was placed in the left lateral decubitus position. EGD: The Pentax videoscope was introduced through the oropharynx and advanced to the second portion of the duodenum under direct visualization. Retroflexion was performed in the stomach. FINDINGS: The esophagus this was normal The stomach this was normal The duodenum this was normal Following the evaluation of the stomach and the duodenum the stomach was insufflated with air and the area of PEG placement was identified through indentation and transillumination the area was prepped and draped in usual fashion 5 cc of lidocaine were injected locally a small incision was made then an Angiocath was passed into the stomach through which a guidewire was passed this was retrieved with the scope into that a PEG tube was attached and pulled into place and thereafter secured in usual fashion The patient tolerated procedure well and there are no immediate complications ESTIMATED BLOOD LOSS: None SPECIMENS REMOVED: None COMPLICATIONS: None IMPRESSION: Normal EGD Successful PEG placement PLAN: 1. May use PEG tube for medications today 2. May start feeding tomorrow 3. May obtain nutritional consult for tube feeding 4. Flush tube with 50 cc of water every 4-6 hours 5. Always flush tube after feedings 6. Apply abdominal binder as necessary 7. Clamp G-tube after use and flush. Raffaele Spence MD Feb 25, 2018 18:56
[2018-02-26] VITALS (29 sets, daily range): BP systolic 140–176; BP diastolic 63–106; PULSE 43–99; RESP 6–20; TEMP 96–98.3; O2SAT 92–100
[2018-02-26] MEDS: SODIUM CHLORIDE 23.4% INJ 154 MEQ in DEXTROSE 10% INJ 1,000 ML IV SCH ×2 (01:21→20:47)
[2018-02-26] MEDS: INSULIN NovoLIN REGULAR SUPPLEMENTAL SCALE SQ SCH ×5 (04:00→20:00)
[2018-02-26] MEDS: CHLORHEXIDINE GLUCONATE 2 % 1 PACK (2 CLOTHS) TOP SCH (04:00)
[2018-02-26] MEDS: LEVOTHYROXINE SODIUM 25 MCG TAB PO SCH (05:15)
[2018-02-26] MEDS: FAMOTIDINE 20 MG TAB PO SCH ×2 (08:29→20:47)
[2018-02-26] MEDS: DOCUSATE SODIUM 50 MG/SENNA 8.6 MG TAB PO SCH ×2 (08:29→20:47)
[2018-02-26] MEDS: HYDROCORTISONE SOD SUCCINATE 100 MG VIAL IV PUSH SCH ×2 (08:29→17:53)
[2018-02-26] MEDS: CHOLECALCIFEROL (VIT D3) LIQ 400 UNITS/ML 50 ML BOTTLE PO SCH (08:30)
--- NOTE | 2018-02-26 11:36 | HHI.GIFU ---
Subjective Remarks Pt awake, confused Soft wrist restraints PEG tube clamped (Beatrice Orr) Objective Vitals I&O Vital Signs Date Time Temp Pulse Resp B/P (MAP) Pulse Ox O2 Delivery O2 Flow Rate FiO2 02/26/18 10:30 56 02/26/18 10:00 51 02/26/18 09:47 95 02/26/18 09:30 55 02/26/18 09:00 54 02/26/18 08:30 66 02/26/18 08:30 66 20 163/74 (103) 02/26/18 08:00 97.8 73 16 152/70 (97) 95 02/26/18 08:00 73 02/26/18 07:30 59 02/26/18 07:30 59 9 148/67 (94) 94 02/26/18 07:00 60 02/26/18 07:00 60 10 151/65 (93) 92 02/26/18 06:00 57 02/26/18 04:00 98.2 54 8 154/73 (100) 98 02/26/18 04:00 54 02/26/18 02:00 63 02/26/18 00:00 97.8 66 11 145/65 (91) 100 02/26/18 00:00 66 02/25/18 22:27 100 21 02/25/18 22:00 60 02/25/18 20:00 62 02/25/18 20:00 98.3 62 9 139/62 (87) 97 02/25/18 18:00 55 02/25/18 17:00 50 02/25/18 17:00 93.1 50 9 185/78 (113) 02/25/18 16:51 51 02/25/18 16:15 97.5 54 15 177/83 (114) 100 Nasal Cannula 2 02/25/18 16:00 53 13 190/81 (117) 100 Nasal Cannula 2 02/25/18 16:00 45 02/25/18 15:45 49 14 134/61 (85) 100 Nasal Cannula 2 02/25/18 15:31 97.4 52 15 123/58 (79) 100 Nasal Cannula 2 02/25/18 13:00 64 02/25/18 12:56 64 12 164/72 (102) 100 02/25/18 12:37 98.0 77 12 172/73 (106) 100 02/25/18 12:37 70 02/25/18 12:37 100 Room Air 02/25/18 12:22 69 12 147/65 (92) 100 02/25/18 12:00 98.1 57 9 141/64 (89) 100 02/25/18 12:00 57 I/O 02/25/18 02/25/18 02/25/18 02/26/18 02/26/18 02/26/18 07:00 15:00 23:00 07:00 15:00 23:00 Intake Total 100 ml 200 ml 1200 ml Output Total 400 ml Balance 100 ml 200 ml 800 ml Intake Oral 100 ml 0 ml 0 ml IV Total 1000 ml Other 200 ml 200 ml Output Urine Total 400 ml # Voids 1 1 # Bowel Movements 0 0 0 Laboratory Date/Time Source Procedure Growth Status 02/23/18 09:13 Stool Stool Stool Occult Blood (NAVNEET) - Final HEMOCCULT POSITIVE Complete Imaging Last Impressions Cholangiopancreatography MRI 02/23/18 0000 Signed Impressions: Service Date/Time: Friday, February 23, 2018 22:07 - CONCLUSION: 1. No intra-or extrahepatic biliary ductal dilatation. 2. Hepatic cysts. 3. Bilateral pleural effusions. Dagoberto Talbot MD Abdomen X-Ray 02/23/18 0000 Signed Impressions: Service Date/Time: Friday, February 23, 2018 15:58 - CONCLUSION: No contraindication to MRI seen on the film Osito Pereira MD Liver Ultrasound 02/20/18 0000 Signed Impressions: Service Date/Time: Tuesday, February 20, 2018 18:47 - CONCLUSION: 1. No gallstones or ductal dilatation. Right-sided medical renal disease. Trace free fluid. Javier Walden MD Head CT 02/20/18 0000 Signed Impressions: Service Date/Time: Tuesday, February 20, 2018 13:57 - CONCLUSION: No acute disease. Bud Benton Jr., MD Chest X-Ray 02/20/18 0000 Signed Impressions: Service Date/Time: Tuesday, February 20, 2018 14:00 - CONCLUSION: Minimal parenchymal changes left base. Sudhakar Angel MD FACR Physical Exam HEENT: Normocephalic; atraumatic CHEST: Even/unlabored CARDIAC: RRR ABDOMEN: Cachectic, soft, bowel sounds active. PEG with scant amount of dried blood, clamped. Gauze is clean and dry FARROWING MANAGER: Awake, confused , 4 soft restraints (Beatrice Orr) Assessment and Plan Plan Assessment: - Elevated LFTS- Currently [id number] ALT-718 Alk phos-324 T bili-0.3. Unsure if pts has previous history of liver issues. No previous labs to compare this to. Liver US (02/20) --> No gallstones or ductal dilatation. Right-sided medical renal disease. Trace free fluid. Attempted to call listed contact, [facility], however went straight to voicemail. Unable to obtain history from pt, she is moving all extremities, but nonverbal. Unsure of her baseline, per RN she lives with a non-relative roommate - AMS- Initially called as a stroke alert- found to be hypoglycemia- corrected- CT head negative- per neurologist not CVA (02/22) Pt remains confused. LFTs trending down. Liver VILA pending. ? shocked liver. Pt is cachectic and nutrition depleted. Pt would likely benefit from a PEG tube. Attempted to call only contacts listed [facility], at two separate numbers. She answered and quickly after hung up. This is pts non relative roommate, I am unsure if she is also the medical decision maker. Vit D replacement started. (02/24) Pt remains confused, in four point soft restraints. She was receiving TF through [facility], however pt ripped this out. Discussed case with María from Palliative care, only contact for pt is a non-relative roommate that has been caring for her, this person does not have legal paperwork to make decisions. Palliative has requested [employer]ints report from case management and further decisions regarding pt treatment dependent on this. LFTs are continuing to trend down, suggesting shock liver. Hepatitis panel and CONNIE negative. Rest of liver VILA is pending. At this time, given improvement in LFTs, our service will sign off and will be available if needed Regarding nutrition, once a legal decision maker is appointed, our service can be reconsulted if a PEG tube is decided upon (02/26) S/P EGD with PEG --> Normal EGD, succesful PEG placement. Nutrition recommending Jevity 1.5 with goal rate at 55mL/hr for 22 hours. Hold for Synthroid. LFTs continue to trend down Plan: - Monitor LFTs, trending down - TF per dietary as noted above - Flush PEG with 50 cc of water q 4-6 hours - Flush PEG after feedings - Abdominal binder as necessary - Clamp PEG after use and flush - GI will sign off, please reconsult as needed Pt has been seen and examined by myself and Dr. Spence and this note is written on his behalf (Beatrice Orr) Physician Comments Seen and examined Agree with above Continue with current supportive care Monitor labs We will sign off (Raffaele Spence MD) Beatrice Orr Feb 26, 2018 11:36 Raffaele Spence MD Feb 26, 2018 20:59
--- NOTE | 2018-02-26 12:09 | HHI.CCPN ---
Subjective Remarks/Hospital Course Patient is a 62-year-old female with a history of hypertension, mental retardation with underlying dementia, who presented to [facility] ED via ambulance as a stroke alert. The patient is status post a fall and hit her forehead. She was found to be hypoglycemic with a blood sugar of 53 and was given 10 grams of D10 and then her sugar was 130. The patient is a very poor historian. She had a CT scan of the brain, which showed no acute disease. In addition, a chest x-ray in the ER showed minimal parenchymal changes left base. ABG was performed on 2 liter nasal cannula, which showed a pH of 7.37, CO2 51, pO2 217, bicarb 29, saturation of 98%. Most of the history was obtained from reviewing the medical records. In the ED, she was hypertensive with a systolic blood pressure 150s to 170s; however, she had intermittent bradycardia with a heart rate in the 40s. The patient is on [address] Le from neurology service was notified regarding the stroke alert, and given her clinical presentation, patient was not a candidate for TPA. 02/21 Patient is on 4L oxygen was hypotensive overnight. Afebrile. 02/22 Patient seems more awake today, hemodynamics overall better. 02/23 No events overnight, hypothermic 02/24 Patient is lying in bed in NAD. MRCP abdomen yesterday no intra-or extrahepatic biliary ductal dilatation. 02/25: Resting in bed. No acute distress. Hypothermic on warming blanket 02/26: Underwent PEG tube placement yesterday. Awake and alert. Not in any acute distress. Objective Vital Signs Date Time Temp Pulse Resp B/P (MAP) Pulse Ox O2 Delivery O2 Flow Rate FiO2 02/26/18 10:30 56 02/26/18 09:47 95 02/26/18 08:30 20 163/74 (103) 02/26/18 08:00 97.8 02/25/18 22:27 21 02/25/18 16:15 Nasal Cannula 2 Intake and Output 02/26/18 02/26/18 02/27/18 08:00 16:00 00:00 Intake Total 1200 ml Output Total 400 ml Balance 800 ml Result Diagram: 02/25/18 0758 02/25/18 0758 Imaging Last Impressions Abdomen X-Ray 02/23/18 0000 Signed Impressions: Service Date/Time: Friday, February 23, 2018 15:58 - CONCLUSION: No contraindication to MRI seen on the film Osito Pereira MD Liver Ultrasound 02/20/18 0000 Signed Impressions: Service Date/Time: Tuesday, February 20, 2018 18:47 - CONCLUSION: 1. No gallstones or ductal dilatation. Right-sided medical renal disease. Trace free fluid. Javier Walden MD Head CT 02/20/18 Signed Impressions: Service Date/Time: Tuesday, February 20, 2018 13:57 - CONCLUSION: No acute disease. Bud Benton Jr., MD Chest X-Ray 02/20/18 Signed Impressions: Service Date/Time: Tuesday, February 20, 2018 14:00 - CONCLUSION: Minimal parenchymal changes left base. Sudhakar Angel MD FACR Objective Remarks GENERAL: Patient is 62 yo lying in bed in no acute resp distress SKIN: Warm and dry. HEAD: Normocephalic. EYES: No scleral icterus. No injection or drainage. NECK: Supple, trachea midline. No JVD or lymphadenopathy. CARDIOVASCULAR: Regular rate and rhythm without murmurs, gallops, or rubs. RESPIRATORY: Breath sounds equal bilaterally. No accessory muscle use. GASTROINTESTINAL: Abdomen soft, non-tender, nondistended. PEG tube in place. MUSCULOSKELETAL: No cyanosis, or edema. Neuro: More awake A/P Assessment and Plan 1. Respiratory insufficiency. 2. Altered mental status. 3. Status post hypoglycemic episode. 4. Bradycardia. 5. History of hypertension. 6. Mental retardation. 7 Elevated LFT's 8 Anemia Plan Neuro: Monitor neuro status closely and avoid any sedatives CT brain in ED negative for acute intracranial process. Tylenol level < 2, ASA level <1.7, Ammonia level : 21 neuro is following- Dr. Le EEG: bilateral slowing suggestive of a moderately severe diffuse disturbance of cerebral function. No epileptiform features are present Pulm: Continue with oxygen to maintain sats above 92%. Bronchodilators, CV: Monitor HR and BP keep MAP>65 mmHg. Lactic acid 1.2, Echo showed EF 35-40%, inferior wall hypokinesis cards is following- Dr. Moss : Monitor renal function, I's and O's and electrolyte replacement per protocol. IVF D10 @50ml/hr GI: on Pepcid for GI prophylaxis, on Puree diet per speech and NGT feeds ( Jevity 1.5) per GI MRCP abdomen: No intra-or extrahepatic biliary ductal dilatation. s/p PEG tube placement 02/25 as patient is severely malnourished. Starting tube feeds via PEG with Jevity in additional to by mouth feeding. Monitor LFT's, ( trending down), Hepatitis profile is negative US liver: No gallstones or ductal dilatation. Right-sided medical renal disease. Trace free fluid. Tylenol level < 2. GI is following. ID: Monitor for signs infections, which include fever and WBC. Endo: SSI with Accu-Cheks q.4 , on D10NS@50ml/hr, HC 100mg IV Q8 TSH: 4.9, FT3:0.88, FT4:0.88, On Synthroid 37.5 mcg PO daily Heme: Monitor CBC. GI prophylaxis with Pepcid and DVT prophylaxis with SCDs, heparin subQ held given anemia and Hemoccult positive Palliative care is following Consult and transfer to hospitalist service for further medical management. Level 2 Santiago Alvarez MD Feb 26, 2018 12:09
--- NOTE | 2018-02-26 14:27 | HHI.HCPN ---
Reason for visit a. To assist with evaluation and management of symptoms including: confusion. b. To assist medical decision maker(s) with: better understanding of current medical conditions; weighing benefits/burdens of medical treatment options; making medical treatment decisions. . Subjective/Interval History Follow-up on symptom management and address goals of care with decision-maker. Patient seen and examined in ICU. She is in bed with no signs and symptoms of distress. Patient denies pain. Patient not able to follow simple commands. Spontaneously moving LUE-appears non-purposefully. RUE in a soft wrist restraint. Speech not making sense and somewhat slurred. PEG tube placement yesterday and currently clamped. Starting Jevity tube feeding via PEG this afternoon per bedside RN. Patient is also on pureed diet and bedside RN reports minimal intake and possible signs of dysphagia as evidenced by constant coughing during feeding. Patient hypothermic with a temperature of 96F 8 none today-warming blanket "bear hugger" on. Laboratory workup 02/25/18 revealed WBC 6.3, hemoglobin 8.2, hematocrit 25.6, platelet count 119, sodium 146, potassium 3.3, random glucose 100, BUN/ creatinine 38/0.8, AST 136, ALT 248, alkaline phosphatase 196, total protein 6.5 , albumin 2.3. No recent imaging. Telephone conversation with patient`s chief crna / health care proxy Swati Gutierrez. Updated her on patient`s current status. Health care proxy reiterated that patient will benefit from being placed in a alf since she now requires more care. Case management following and assisting with placement. . Family/friend interactions Telephone conversation with patient`s chief crna/health care proxy Swati . Advance Directives Living Will: Never completed Health Care Surrogate: Never completed Durable Power of Cold Rolling Supervisor: Never completed Advance Directive Specifics Health Care Surrogate(s): Patient is not capacitated to make her own health care decisions, will not regain capacity. Per EMR review, Swati Gutierrez is her chief crna, but not a legal guardian. [employer] report showed that there are no other family members except for patient`s father. Per [facility] Legal department Swati Gutierrez can serve as the legal decision maker. . Objective Vital Signs Date Time Temp Pulse Resp B/P (MAP) Pulse Ox O2 Delivery O2 Flow Rate FiO2 02/26/18 13:00 50 10 151/106 (121) 100 02/26/18 12:30 64 14 170/94 (119) 02/26/18 12:00 96.0 46 15 171/78 (109) 100 02/26/18 11:30 48 17 169/79 (109) 100 02/26/18 11:00 52 13 165/77 (106) 100 02/26/18 10:30 56 02/26/18 10:30 56 18 168/87 (114) 100 02/26/18 10:00 51 15 167/79 (108) 100 02/26/18 10:00 51 02/26/18 09:47 95 02/26/18 09:30 55 02/26/18 09:30 55 11 165/80 (108) 100 02/26/18 09:00 54 02/26/18 09:00 54 13 156/74 (101) 100 02/26/18 08:30 66 02/26/18 08:30 66 20 163/74 (103) 02/26/18 08:00 97.8 73 16 152/70 (97) 95 02/26/18 08:00 73 02/26/18 07:30 59 02/26/18 07:30 59 9 148/67 (94) 94 02/26/18 07:00 60 02/26/18 07:00 60 10 151/65 (93) 92 02/26/18 06:00 57 02/26/18 04:00 98.2 54 8 154/73 (100) 98 02/26/18 04:00 54 02/26/18 02:00 63 02/26/18 00:00 97.8 66 11 145/65 (91) 100 02/26/18 00:00 66 02/25/18 22:27 100 21 02/25/18 22:00 60 02/25/18 20:00 62 02/25/18 20:00 98.3 62 9 139/62 (87) 97 02/25/18 18:00 55 02/25/18 17:00 50 02/25/18 17:00 93.1 50 9 185/78 (113) 02/25/18 16:51 51 02/25/18 16:15 97.5 54 15 177/83 (114) 100 Nasal Cannula 2 02/25/18 16:00 53 13 190/81 (117) 100 Nasal Cannula 2 02/25/18 16:00 45 02/25/18 15:45 49 14 134/61 (85) 100 Nasal Cannula 2 02/25/18 15:31 97.4 52 15 123/58 (79) 100 Nasal Cannula 2 Intake & Output 02/26/18 02/26/18 07:00 19:00 Intake Total 1200 ml Output Total 400 ml Balance 800 ml Intake Oral 0 ml IV Total 1000 ml Other 200 ml Output Urine Total 400 ml # Bowel Movements 0 Physical Exam CONSTITUTIONAL/GENERAL: This is a frail, cachectic female patient, in no apparent distress. TUBES/LINES/DRAINS: NC, PIV, PEG tube. ENT: PERRLA. Slurred speech , no nasal drainage. Trachea midline. CARDIOVASCULAR: Regular rate and rhythm without murmurs, gallops, or rubs. No JVD. RESPIRATORY/CHEST: Symmetric, unlabored respirations. Clear to auscultation and diminished in the bases. GASTROINTESTINAL: Abdomen soft, non-tender, nondistended. No guarding. Bowel sounds present. PEG clamped GENITOURINARY: Without palpable bladder distension. MUSCULOSKELETAL: Extremities without clubbing, cyanosis, or edema. No mottling or clubbing. NEUROLOGICAL: Awake, alert, tracks. Does not follow commands but spontaneously moving BUE. Slurred speech-not making sense. Moves all extremities. PSYCHIATRIC: confused. . Diagnostic Tests Laboratory Laboratory Tests Test 02/24/18 04:35 02/25/18 07:58 White Blood Count 6.4 TH/MM3 (4.0-11.0) 6.3 TH/MM3 (4.0-11.0) Red Blood Count 3.03 MIL/MM3 (4.00-5.30) 2.94 MIL/MM3 (4.00-5.30) Hemoglobin 8.4 GM/DL (11.6-15.3) 8.2 GM/DL (11.6-15.3) Hematocrit 26.5 % (35.0-46.0) 25.6 % (35.0-46.0) Mean Corpuscular Volume 87.6 FL (80.0-100.0) 86.9 FL (80.0-100.0) Mean Corpuscular Hemoglobin 27.8 PG (27.0-34.0) 27.9 PG (27.0-34.0) Mean Corpuscular Hemoglobin Concent 31.7 % (32.0-36.0) 32.1 % (32.0-36.0) Red Cell Distribution Width 19.6 % (11.6-17.2) 19.2 % (11.6-17.2) Platelet Count 172 TH/MM3 (150-450) 119 TH/MM3 (150-450) Mean Platelet Volume 8.5 FL (7.0-11.0) 8.5 FL (7.0-11.0) Neutrophils (%) (Auto) 80.8 % (16.0-70.0) 81.8 % (16.0-70.0) Lymphocytes (%) (Auto) 15.8 % (9.0-44.0) 16.2 % (9.0-44.0) Monocytes (%) (Auto) 2.9 % (0.0-8.0) 2.0 % (0.0-8.0) Eosinophils (%) (Auto) 0.1 % (0.0-4.0) 0.0 % (0.0-4.0) Basophils (%) (Auto) 0.4 % (0.0-2.0) 0.0 % (0.0-2.0) Neutrophils # (Auto) 5.2 TH/MM3 (1.8-7.7) 5.2 TH/MM3 (1.8-7.7) Lymphocytes # (Auto) 1.0 TH/MM3 (1.0-4.8) 1.0 TH/MM3 (1.0-4.8) Monocytes # (Auto) 0.2 TH/MM3 (0-0.9) 0.1 TH/MM3 (0-0.9) Eosinophils # (Auto) 0.0 TH/MM3 (0-0.4) 0.0 TH/MM3 (0-0.4) Basophils # (Auto) 0.0 TH/MM3 (0-0.2) 0.0 TH/MM3 (0-0.2) CBC Comment DIFF FINAL DIFF FINAL Differential Comment Blood Urea Nitrogen 44 MG/DL (7-18) 38 MG/DL (7-18) Creatinine 0.99 MG/DL (0.50-1.00) 0.81 MG/DL (0.50-1.00) Random Glucose 70 MG/DL (74-106) 100 MG/DL (74-106) Calcium Level 8.0 MG/DL (8.5-10.1) 8.0 MG/DL (8.5-10.1) Phosphorus Level 3.6 MG/DL (2.5-4.9) 2.7 MG/DL (2.5-4.9) Magnesium Level 1.9 MG/DL (1.5-2.5) 1.9 MG/DL (1.5-2.5) Sodium Level 145 MEQ/L (136-145) 146 MEQ/L (136-145) Potassium Level 4.2 MEQ/L (3.5-5.1) 3.3 MEQ/L (3.5-5.1) Chloride Level 116 MEQ/L (98-107) 116 MEQ/L (98-107) Carbon Dioxide Level 19.9 MEQ/L (21.0-32.0) 22.7 MEQ/L (21.0-32.0) Anion Gap 9 MEQ/L (5-15) 7 MEQ/L (5-15) Estimat Glomerular Filtration Rate 69 ML/MIN (>89) 86 ML/MIN (>89) Total Protein 6.5 GM/DL (6.4-8.2) Albumin 2.3 GM/DL (3.4-5.0) Alkaline Phosphatase 196 U/L (45-117) Aspartate Amino Transf (AST/SGOT) 136 U/L (15-37) Alanine Aminotransferase (ALT/SGPT) 248 U/L (10-53) Total Bilirubin 0.3 MG/DL (0.2-1.0) Result Diagram: 02/25/18 0758 02/25/18 0758 Assessment and Plan Disease Oriented Problem List: (1) Altered mental status (2) Bradycardia (3) Anemia (4) Cachectic (5) Hypertensive urgency (6) Hypokalemia Symptom Scale: (1) Pain (2) Dyspnea Pertinent Non-Medical Issues Psychosocial: Swati Gutierrez has been her chief crna for the last few years, since the patient's father . No other known family. [employer] returned no additional family leads. Spiritual:Unknown. Legal: Patient is not capacitated to make her own health care decisions, will not regain capacity. As [employer] report failed to identify any other family, Swati Gutierrez will be the legal decision maker per Sarah in legal department. Ethical issues impacting care: No known concerns at this time. . Important Contacts * Swati Gutierrez, legal guardian: . . Prognosis Will need additional testing to better prognosticate. However this patient appears quite frail, cachectic and debilitated which puts her at high risk for further setbacks and decline. . Code Status: No Code Plan * Decision Maker: Patient is not capacitated to make her own health care decisions, will not regain capacity. Swati Gutierrez is willing to be the decision maker and would be proxy as no other family was found by [employer], per the legal department.. * DO NOT RESUSCITATE. * Swati Gutierrez updated on patient`s current medical status, PEG tube successful insertion on 02/25/18 and that case management is assisting with patient`s placement. * SYMPTOMS: Confusion: Altered mental status secondary to reported mental retardation and underlying dementia. Possibly complicated by infection, hypoglycemia, possible stroke, other. * Palliative care will continue to follow throughout hospital course to assist with symptom management and clarification of goals as needed. . Attestation To help prompt me to consider important information that might be impacting today's encounter and assessment, information from prior notes written by myself or my colleagues may have been "brought forward" into today's note. My signature on this note, however, is an attestation that I personally performed the exam, history, and/or decision-making noted today, and, unless otherwise indicated, the interactions with patient, family, and staff as well as the review of records all occurred today. I also attest that the listed assessment and stated plan reflect my best clinical judgment today based on the combination of historical information, prior notes, and today's exam/ interactions. When time spent is documented, it refers only to time spent today by the signer, or if indicated, combined time spent today by collaborating physician/nurse practitioner. Allyson Garcia Feb 26, 2018 14:27
[2018-02-26] MEDS: hydrALAZINE HCL 20 MG/ML VIAL IV PUSH PRN (20:48)
[2018-02-26 23:53] LABS: MITOCHONDRIAL ABS LESS THAN 20.0 U (<=20.0)
[2018-02-27] VITALS (18 sets, daily range): BP systolic 151–181; BP diastolic 66–82; PULSE 45–99; RESP 10–15; TEMP 96–97.7; O2SAT 96–100
[2018-02-27] MEDS: CHLORHEXIDINE GLUCONATE 2 % 1 PACK (2 CLOTHS) TOP SCH (01:00)
[2018-02-27] MEDS: HYDROCORTISONE SOD SUCCINATE 100 MG VIAL IV PUSH SCH ×3 (01:00→17:57)
[2018-02-27] MEDS: INSULIN NovoLIN REGULAR SUPPLEMENTAL SCALE SQ SCH ×6 (04:00→20:00)
[2018-02-27] MEDS: LEVOTHYROXINE SODIUM 25 MCG TAB PO SCH (04:50)
[2018-02-27] MEDS: hydrALAZINE HCL 20 MG/ML VIAL IV PUSH PRN ×4 (04:50→20:33)
[2018-02-27] MEDS: DOCUSATE SODIUM 50 MG/SENNA 8.6 MG TAB PO SCH ×2 (08:22→20:19)
[2018-02-27] MEDS: CHOLECALCIFEROL (VIT D3) LIQ 400 UNITS/ML 50 ML BOTTLE PO SCH (08:22)
[2018-02-27] MEDS: FAMOTIDINE 20 MG TAB PO SCH ×2 (08:22→20:19)
[2018-02-27 11:52] LABS: CERULOPLASMIN 30 mg/dL (18-53)
--- NOTE | 2018-02-27 18:24 | HHI.CCPN ---
Subjective Remarks/Hospital Course Patient is a 62-year-old female with a history of hypertension, mental retardation with underlying dementia, who presented to [facility] ED via ambulance as a stroke alert. The patient is status post a fall and hit her forehead. She was found to be hypoglycemic with a blood sugar of 53 and was given 10 grams of D10 and then her sugar was 130. The patient is a very poor historian. She had a CT scan of the brain, which showed no acute disease. In addition, a chest x-ray in the ER showed minimal parenchymal changes left base. ABG was performed on 2 liter nasal cannula, which showed a pH of 7.37, CO2 51, pO2 217, bicarb 29, saturation of 98%. Most of the history was obtained from reviewing the medical records. In the ED, she was hypertensive with a systolic blood pressure 150s to 170s; however, she had intermittent bradycardia with a heart rate in the 40s. The patient is on [address] Le from neurology service was notified regarding the stroke alert, and given her clinical presentation, patient was not a candidate for TPA. 02/21 Patient is on 4L oxygen was hypotensive overnight. Afebrile. 02/22 Patient seems more awake today, hemodynamics overall better. 02/23 No events overnight, hypothermic 02/24 Patient is lying in bed in NAD. MRCP abdomen yesterday no intra-or extrahepatic biliary ductal dilatation. 02/25: Resting in bed. No acute distress. Hypothermic on warming blanket 02/26: Underwent PEG tube placement yesterday. Awake and alert. Not in any acute distress. 02/27: Resting in bed comfortably. No change Objective Vital Signs Date Time Temp Pulse Resp B/P (MAP) Pulse Ox O2 Delivery O2 Flow Rate FiO2 02/27/18 08:00 51 02/27/18 08:00 97.3 10 181/78 (112) 100 02/25/18 22:27 21 02/25/18 16:15 Nasal Cannula 2 Intake and Output 02/27/18 02/27/18 02/28/18 08:00 16:00 00:00 Intake Total 450 ml Output Total 500 ml Balance -50 ml Result Diagram: 02/25/18 0758 02/25/18 0758 Imaging Last Impressions Abdomen X-Ray 02/23/18 0000 Signed Impressions: Service Date/Time: Friday, February 23, 2018 15:58 - CONCLUSION: No contraindication to MRI seen on the film Osito Pereira MD Liver Ultrasound 02/20/18 0000 Signed Impressions: Service Date/Time: Tuesday, February 20, 2018 18:47 - CONCLUSION: 1. No gallstones or ductal dilatation. Right-sided medical renal disease. Trace free fluid. Javier Walden MD Head CT 02/20/18 0000 Signed Impressions: Service Date/Time: Tuesday, February 20, 2018 13:57 - CONCLUSION: No acute disease. Bud Benton Jr., MD Chest X-Ray 02/20/18 0000 Signed Impressions: Service Date/Time: Tuesday, February 20, 2018 14:00 - CONCLUSION: Minimal parenchymal changes left base. Sudhakar Angel MD FACR Objective Remarks GENERAL: Patient is 62 yo lying in bed in no acute resp distress SKIN: Warm and dry. HEAD: Normocephalic. EYES: No scleral icterus. No injection or drainage. NECK: Supple, trachea midline. No JVD or lymphadenopathy. CARDIOVASCULAR: Regular rate and rhythm without murmurs, gallops, or rubs. RESPIRATORY: Breath sounds equal bilaterally. No accessory muscle use. GASTROINTESTINAL: Abdomen soft, non-tender, nondistended. PEG tube in place. MUSCULOSKELETAL: No cyanosis, or edema. Neuro: More awake A/P Assessment and Plan 1. Respiratory insufficiency. 2. Altered mental status. 3. Status post hypoglycemic episode. 4. Bradycardia. 5. History of hypertension. 6. Mental retardation. 7 Elevated LFT's 8 Anemia Plan Neuro: Monitor neuro status closely and avoid any sedatives CT brain in ED negative for acute intracranial process. Tylenol level < 2, ASA level <1.7, Ammonia level : 21 neuro is following- Dr. Le EEG: bilateral slowing suggestive of a moderately severe diffuse disturbance of cerebral function. No epileptiform features are present Pulm: Continue with oxygen to maintain sats above 92%. Bronchodilators, CV: Monitor HR and BP keep MAP>65 mmHg. Lactic acid 1.2, Echo showed EF 35-40%, inferior wall hypokinesis cards is following- Dr. Moss : Monitor renal function, I's and O's and electrolyte replacement per protocol. IVF D10 @50ml/hr GI: on Pepcid for GI prophylaxis, on Puree diet per speech and NGT feeds ( Jevity 1.5) per GI MRCP abdomen: No intra-or extrahepatic biliary ductal dilatation. s/p PEG tube placement 02/25 as patient is severely malnourished. Starting tube feeds via PEG with Jevity in additional to by mouth feeding. Monitor LFT's, ( trending down), Hepatitis profile is negative US liver: No gallstones or ductal dilatation. Right-sided medical renal disease. Trace free fluid. Tylenol level < 2. GI is following. ID: Monitor for signs infections, which include fever and WBC. Endo: SSI with Accu-Cheks q.4 , on D10NS@50ml/hr, HC 100mg IV Q8 TSH: 4.9, FT3:0.88, FT4:0.88, On Synthroid 37.5 mcg PO daily Heme: Monitor CBC. GI prophylaxis with Pepcid and DVT prophylaxis with SCDs, heparin subQ held given anemia and Hemoccult positive Palliative care is following Consult and transfer to hospitalist service for further medical management. Level 2 Santiago Alvarez MD Feb 27, 2018 18:24
[2018-02-27] MEDS: SODIUM CHLORIDE 23.4% INJ 154 MEQ in DEXTROSE 10% INJ 1,000 ML IV SCH (18:32)
[2018-02-28] VITALS (10 sets, daily range): BP systolic 150–200; BP diastolic 67–109; PULSE 57–81; RESP 18–20; TEMP 97.1–97.8; O2SAT 96–100
[2018-02-28] MEDS: HYDROCORTISONE SOD SUCCINATE 100 MG VIAL IV PUSH SCH ×3 (00:16→23:19)
[2018-02-28] MEDS: hydrALAZINE HCL 20 MG/ML VIAL IV PUSH PRN ×3 (00:18→13:34)
[2018-02-28] MEDS: CHLORHEXIDINE GLUCONATE 2 % 1 PACK (2 CLOTHS) TOP SCH (04:00)
[2018-02-28] MEDS: LEVOTHYROXINE SODIUM 25 MCG TAB PO SCH (05:03)
[2018-02-28] MEDS: INSULIN NovoLIN REGULAR SUPPLEMENTAL SCALE SQ SCH ×6 (05:04→20:25)
[2018-02-28] MEDS: FAMOTIDINE 20 MG TAB PO SCH ×2 (08:46→20:25)
[2018-02-28] MEDS: DOCUSATE SODIUM 50 MG/SENNA 8.6 MG TAB PO SCH ×2 (08:46→20:25)
[2018-02-28] MEDS: CHOLECALCIFEROL (VIT D3) LIQ 400 UNITS/ML 50 ML BOTTLE PO SCH (08:47)
[2018-02-28] MEDS ORDERED: ENALAPRILAT 1.25 MG/ML VIAL IV PUSH PRN (11:30)
--- NOTE | 2018-02-28 11:33 | HHI.PR ---
Subjective Remarks F/U encephalopathy Objective Vitals Vital Signs Date Time Temp Pulse Resp B/P (MAP) Pulse Ox O2 Delivery O2 Flow Rate FiO2 02/28/18 10:07 21 02/28/18 08:00 Room Air 02/28/18 08:00 97.7 70 18 200/80 (120) 97 02/28/18 05:09 97.3 67 20 163/67 (99) 96 02/28/18 00:00 97.1 73 20 173/109 (130) 99 02/27/18 22:00 60 02/27/18 21:06 96 21 02/27/18 20:00 96.0 73 12 179/82 (114) 100 02/27/18 20:00 59 02/27/18 18:00 80 02/27/18 16:00 97.2 51 12 161/74 (103) 100 02/27/18 16:00 73 02/27/18 14:00 73 02/27/18 12:00 51 02/27/18 12:00 97.7 51 10 177/76 (109) 100 I/O 02/27/18 02/27/18 02/27/18 02/28/18 02/28/18 02/28/18 07:00 15:00 23:00 07:00 15:00 23:00 Intake Total 450 ml 790 ml Output Total 500 ml 450 ml 400 ml Balance -50 ml 340 ml -400 ml Intake Oral 240 ml 200 ml IV Total 500 ml Tube Feeding 210 ml 90 ml Output Urine Total 500 ml 450 ml 400 ml # Bowel Movements 0 0 Result Diagram: 02/25/18 0758 02/25/18 0758 Imaging Last Impressions Cholangiopancreatography MRI 02/23/18 0000 Signed Impressions: Service Date/Time: Friday, February 23, 2018 22:07 - CONCLUSION: 1. No intra-or extrahepatic biliary ductal dilatation. 2. Hepatic cysts. 3. Bilateral pleural effusions. Dagoberto Talbot MD Abdomen X-Ray 02/23/18 0000 Signed Impressions: Service Date/Time: Friday, February 23, 2018 15:58 - CONCLUSION: No contraindication to MRI seen on the film Osito Pereira MD Liver Ultrasound 02/20/18 0000 Signed Impressions: Service Date/Time: Tuesday, February 20, 2018 18:47 - CONCLUSION: 1. No gallstones or ductal dilatation. Right-sided medical renal disease. Trace free fluid. Javier Walden MD Head CT 02/20/18 0000 Signed Impressions: Service Date/Time: Tuesday, February 20, 2018 13:57 - CONCLUSION: No acute disease. Bud Benton Jr., MD Chest X-Ray 02/20/18 0000 Signed Impressions: Service Date/Time: Tuesday, February 20, 2018 14:00 - CONCLUSION: Minimal parenchymal changes left base. Sudhakar Angel MD FACR Objective Remarks GENERAL: Patient is 62 yo lying in bed in no acute resp distress SKIN: Warm and dry. CARDIOVASCULAR: Regular rate and rhythm without murmurs, gallops, or rubs. RESPIRATORY: Breath sounds equal bilaterally. No accessory muscle use. GASTROINTESTINAL: Abdomen soft, non-tender, nondistended. PEG tube in place. MUSCULOSKELETAL: No cyanosis, or edema. Neuro:Awake and oriented to person, ff commands. Generalized weakness. Speech difficult to understand Procedures EGD and PEG A/P Problem List: (1) Altered mental status ICD Code: R41.82 - Altered mental status Status: Acute Assessment and Plan Metabolic encephalopathy with a history of dementia and mental retardation. EEG w/o sz. Ct to monitor . DC restraints. PT consultation Respiratory insufficiency. Resolving will wean steroids Status post hypoglycemic episode. Stable decrease FS to QID Severe hypertension. Start AMADOR and monitor CMP EF 35%. AMADOR unable to start beta-becca secondary to bradycardia elevated LFT's likely from shock liver and rhabdomyolysis. Workup has been negative Anemia stable. Guaiac positive status post normal EGD. Continue Pepcid FEN. Ct PEG TF 2/2 malnutrition DVT prophylaxis with SCDs, heparin subQ held given anemia and Hemoccult positive Needs placement CM ff Palliative care is following Problem Qualifiers (1) Altered mental status: Qualified Codes: R41.82 - Altered mental status, unspecified Dmitriy Clement MD Feb 28, 2018 11:33
[2018-02-28 11:53] LABS: AUTOMATED NEUTROPHIL # 9.2 TH/MM3 (1.8-7.7); BASOPHIL % 0.1 % (0.0-2.0); EOSINOPHIL % 0.1 % (0.0-4.0); HEMATOCRIT 25.9 % (35.0-46.0); HEMOGLOBIN 8.4 GM/DL (11.6-15.3); LYMPH % 4.7 % (9.0-44.0); LYMPHOCYTE # 0.5 TH/MM3 (1.0-4.8); MEAN CELL VOLUME 87.7 FL (80.0-100.0); MEAN CORPUSCULAR HEMOGLOBIN 28.3 PG (27.0-34.0); MEAN CORPUSCULAR HGB CONC 32.3 % (32.0-36.0); MEAN PLATELET VOLUME 8.9 FL (7.0-11.0); MONO % 2.6 % (0.0-8.0); MONOCYTE # 0.3 TH/MM3 (0-0.9); NEUT % 92.5 % (16.0-70.0); PLATELET COUNT 166 TH/MM3 (150-450); RED BLOOD COUNT 2.95 MIL/MM3 (4.00-5.30); RED CELL DISTRIBUTION WIDTH 19.2 % (11.6-17.2)
[2018-02-28 12:13] LABS: BICARBONATE 22.8 MEQ/L (21.0-32.0); CALCIUM 7.8 MG/DL (8.5-10.1); CREATININE 0.59 MG/DL (0.50-1.00); MAGNESIUM 1.9 MG/DL (1.5-2.5)
[2018-02-28] MEDS ORDERED: POTASSIUM CHLORIDE 20 MEQ PWD PACKET G-TUBE ONE (12:30)
[2018-02-28] MEDS: POTASSIUM CHLOR 10 MEQ PREMIX 100 ML IV SCH ×2 (13:21→16:44)
[2018-02-28] MEDS: LISINOPRIL 10 MG TAB PO SCH (13:21)
[2018-03-01] VITALS (10 sets, daily range): BP systolic 155–192; BP diastolic 69–95; PULSE 55–88; RESP 15–20; TEMP 97.3–98.2; O2SAT 94–100
[2018-03-01] MEDS ORDERED: SODIUM CHLORID 0.9% 500 ML INJ 500 ML IV ONE (02:30)
[2018-03-01] MEDS: CHLORHEXIDINE GLUCONATE 2 % 1 PACK (2 CLOTHS) TOP SCH (03:18)
[2018-03-01] MEDS: LEVOTHYROXINE SODIUM 25 MCG TAB PO SCH (05:02)
[2018-03-01] MEDS: INSULIN NovoLIN REGULAR SUPPLEMENTAL SCALE SQ SCH ×4 (08:00→21:00)
[2018-03-01 08:39] LABS: CALCIUM 7.8 MG/DL (8.5-10.1); CREATININE 0.54 MG/DL (0.50-1.00)
[2018-03-01] MEDS: LISINOPRIL 10 MG TAB PO SCH ×2 (08:46→21:22)
[2018-03-01] MEDS: FAMOTIDINE 20 MG TAB PO SCH ×2 (08:46→21:22)
[2018-03-01] MEDS: HYDROCORTISONE SOD SUCCINATE 100 MG VIAL IV PUSH SCH ×2 (08:47→15:57)
[2018-03-01] MEDS: DOCUSATE SODIUM 50 MG/SENNA 8.6 MG TAB PO SCH ×2 (08:47→21:22)
[2018-03-01] MEDS: CHOLECALCIFEROL (VIT D3) LIQ 400 UNITS/ML 50 ML BOTTLE PO SCH (08:47)
--- NOTE | 2018-03-01 10:44 | HHI.PR ---
Subjective Remarks Follow-up encephalopathy and hypertension. States she is alright oriented to person only. Again speech is difficult to understand. BP still uncontrolled. Discussed with nurse Objective Vitals Vital Signs Date Time Temp Pulse Resp B/P (MAP) Pulse Ox O2 Delivery O2 Flow Rate FiO2 03/01/18 08:00 97.7 85 18 162/77 (105) 99 03/01/18 08:00 Room Air 03/01/18 05:48 98.2 76 20 192/80 (117) 100 03/01/18 04:00 64 03/01/18 00:00 72 18 167/69 (101) 98 03/01/18 00:00 55 02/28/18 23:36 Room Air 02/28/18 20:59 98 21 02/28/18 20:00 63 02/28/18 20:00 72 18 183/86 (118) 100 02/28/18 16:07 81 02/28/18 16:00 Room Air 02/28/18 16:00 97.6 79 18 150/72 (98) 98 02/28/18 12:15 57 02/28/18 12:00 Room Air 02/28/18 12:00 97.8 74 18 180/85 (116) 99 I/O 02/28/18 02/28/18 02/28/18 03/01/18 03/01/18 03/01/18 07:00 15:00 23:00 07:00 15:00 23:00 Intake Total 240 ml 1280 ml Output Total 400 ml Balance -400 ml 240 ml 1280 ml Intake Oral 240 ml IV Total 500 ml Tube Feeding 480 ml Tube Irrigant 300 ml Output Urine Total 400 ml # Voids 2 # Bowel Movements 1 Result Diagram: 02/28/18 1056 03/01/18 0650 Imaging Last Impressions Cholangiopancreatography MRI 02/23/18 0000 Signed Impressions: Service Date/Time: Friday, February 23, 2018 22:07 - CONCLUSION: 1. No intra-or extrahepatic biliary ductal dilatation. 2. Hepatic cysts. 3. Bilateral pleural effusions. Dagoberto Talbot MD Abdomen X-Ray 02/23/18 0000 Signed Impressions: Service Date/Time: Friday, February 23, 2018 15:58 - CONCLUSION: No contraindication to MRI seen on the film Osito Pereira MD Liver Ultrasound 02/20/18 0000 Signed Impressions: Service Date/Time: Tuesday, February 20, 2018 18:47 - CONCLUSION: 1. No gallstones or ductal dilatation. Right-sided medical renal disease. Trace free fluid. Javier Walden MD Head CT 02/20/18 0000 Signed Impressions: Service Date/Time: Tuesday, February 20, 2018 13:57 - CONCLUSION: No acute disease. Bud Benton Jr., MD Chest X-Ray 02/20/18 Signed Impressions: Service Date/Time: Tuesday, February 20, 2018 14:00 - CONCLUSION: Minimal parenchymal changes left base. Sudhakar Angel MD FACR Objective Remarks GENERAL: Patient is 62 yo lying in bed in no acute resp distress SKIN: Warm and dry. CARDIOVASCULAR: Regular rate and rhythm without murmurs, gallops, or rubs. RESPIRATORY: Breath sounds equal bilaterally. No accessory muscle use. GASTROINTESTINAL: Abdomen soft, non-tender, nondistended. PEG tube in place. MUSCULOSKELETAL: No cyanosis, or edema. Neuro:Awake and oriented to person, ff commands. Generalized weakness. Speech difficult to understand Procedures EGD and PEG A/P Problem List: (1) Altered mental status ICD Code: R41.82 - Altered mental status Status: Acute Assessment and Plan Metabolic encephalopathy with a history of dementia and mental retardation. EEG w/o sz. Ct to monitor . DC restraints. PT consultation Respiratory insufficiency. Resolving will wean steroids switch to p.o. tomorrow Status post hypoglycemic episode. Stable decrease FS to QID Severe hypertension. Increase AMADOR and monitor CMP EF 35%. AMADOR unable to start beta-becca secondary to bradycardia elevated LFT's likely from shock liver and rhabdomyolysis. Workup has been negative. Continue to await Anemia stable. Guaiac positive status post normal EGD. Continue Pepcid FEN. Ct PEG TF 2/2 malnutrition DVT prophylaxis with SCDs, heparin subQ held given anemia and Hemoccult positive Discharge Planning Needs placement CM ff Palliative care is following Problem Qualifiers (1) Altered mental status: Qualified Codes: R41.82 - Altered mental status, unspecified Dmitriy Clement MD Mar 01, 2018 10:44
[2018-03-02] VITALS (9 sets, daily range): BP systolic 124–204; BP diastolic 81–95; PULSE 53–79; RESP 15–20; TEMP 97–98.1; O2SAT 84–97
[2018-03-02] MEDS: HYDROCORTISONE SOD SUCCINATE 100 MG VIAL IV PUSH SCH ×2 (00:59→08:10)
[2018-03-02] MEDS: CHLORHEXIDINE GLUCONATE 2 % 1 PACK (2 CLOTHS) TOP SCH (01:47)
[2018-03-02] MEDS: LEVOTHYROXINE SODIUM 25 MCG TAB PO SCH (05:59)
[2018-03-02] MEDS: INSULIN NovoLIN REGULAR SUPPLEMENTAL SCALE SQ SCH ×4 (08:00→21:00)
[2018-03-02] MEDS: FAMOTIDINE 20 MG TAB PO SCH ×2 (08:10→23:05)
[2018-03-02] MEDS: DOCUSATE SODIUM 50 MG/SENNA 8.6 MG TAB PO SCH ×2 (08:10→23:06)
[2018-03-02] MEDS: LISINOPRIL 10 MG TAB PO SCH ×2 (08:11→23:06)
[2018-03-02] MEDS: CHOLECALCIFEROL (VIT D3) LIQ 400 UNITS/ML 50 ML BOTTLE PO SCH (08:16)
--- NOTE | 2018-03-02 11:14 | HHI.PR ---
Subjective Remarks Follow-up encephalopathy and dementia. Patient is asking for son which but she is on a pured diet. Discussed with nursing, will discontinue restraints and apply abdominal binder to secure PEG Objective Vitals Vital Signs Date Time Temp Pulse Resp B/P (MAP) Pulse Ox O2 Delivery O2 Flow Rate FiO2 03/02/18 08:00 97.3 72 20 204/92 (129) 89 03/02/18 04:00 98.1 74 15 156/81 (106) 95 03/02/18 04:00 63 03/02/18 00:00 97.9 72 15 150/81 (104) 92 03/01/18 20:00 57 03/01/18 20:00 Room Air 03/01/18 20:00 98.0 71 15 155/82 (106) 94 03/01/18 17:41 99 21 03/01/18 16:23 63 03/01/18 16:00 Room Air 03/01/18 16:00 97.3 70 18 176/72 (106) 99 03/01/18 12:00 97.8 88 18 189/95 (126) 99 03/01/18 12:00 65 03/01/18 12:00 Room Air I/O 03/01/18 03/01/18 03/01/18 03/02/18 03/02/18 03/02/18 07:00 15:00 23:00 07:00 15:00 23:00 Intake Total 1280 ml 240 ml 1020 ml Balance 1280 ml 240 ml 1020 ml Intake Oral 240 ml 240 ml IV Total 500 ml Tube Feeding 480 ml 480 ml Tube Irrigant 300 ml 300 ml # Voids 3 # Bowel Movements 0 Result Diagram: 02/28/18 1056 03/01/18 0650 Imaging Last Impressions Cholangiopancreatography MRI 02/23/18 0000 Signed Impressions: Service Date/Time: Friday, February 23, 2018 22:07 - CONCLUSION: 1. No intra-or extrahepatic biliary ductal dilatation. 2. Hepatic cysts. 3. Bilateral pleural effusions. Dagoberto Talbot MD Abdomen X-Ray 02/23/18 0000 Signed Impressions: Service Date/Time: Friday, February 23, 2018 15:58 - CONCLUSION: No contraindication to MRI seen on the film Osito Pereira MD Liver Ultrasound 02/20/18 0000 Signed Impressions: Service Date/Time: Tuesday, February 20, 2018 18:47 - CONCLUSION: 1. No gallstones or ductal dilatation. Right-sided medical renal disease. Trace free fluid. Javier Walden MD Head CT 02/20/18 0000 Signed Impressions: Service Date/Time: Tuesday, February 20, 2018 13:57 - CONCLUSION: No acute disease. Bud Benton Jr., MD Chest X-Ray 02/20/18 0000 Signed Impressions: Service Date/Time: Tuesday, February 20, 2018 14:00 - CONCLUSION: Minimal parenchymal changes left base. Sudhakar Angel MD FACR Objective Remarks GENERAL: Patient is 62 yo lying in bed in no acute resp distress SKIN: Warm and dry. CARDIOVASCULAR: Regular rate and rhythm without murmurs, gallops, or rubs. RESPIRATORY: Breath sounds equal bilaterally. No accessory muscle use. GASTROINTESTINAL: Abdomen soft, non-tender, nondistended. PEG tube in place. MUSCULOSKELETAL: No cyanosis, or edema. Neuro:Awake and oriented to person, ff commands. Generalized weakness. Speech difficult to understand Procedures EGD and PEG A/P Problem List: (1) Altered mental status ICD Code: R41.82 - Altered mental status Status: Acute Assessment and Plan Metabolic encephalopathy with a history of dementia and mental retardation. EEG w/o sz. Ct to monitor . DC restraints. PT consultation Respiratory insufficiency. Resolving will wean steroids switch to p.o. today Status post hypoglycemic episode. Stable decrease FS to QID consider dc when off steroids Severe hypertension. Improving continue AMADOR and monitor CMP EF 35%. AMADOR unable to start beta-becca secondary to bradycardia elevated LFT's likely from shock liver and rhabdomyolysis. Workup has been negative. Continue to await Anemia stable. Guaiac positive status post normal EGD. Continue Pepcid FEN. Ct PEG TF 2/2 malnutrition. Abd binder DVT prophylaxis with SCDs, heparin subQ held given anemia and Hemoccult positive Discharge Planning Needs placement CM ff Palliative care is following Problem Qualifiers (1) Altered mental status: Qualified Codes: R41.82 - Altered mental status, unspecified Dmitriy Clement MD Mar 02, 2018 11:14
[2018-03-02] MEDS: predniSONE 20 MG TAB PO SCH (16:52)
[2018-03-03] VITALS (10 sets, daily range): BP systolic 145–178; BP diastolic 65–73; PULSE 67–104; RESP 17–22; TEMP 97–98; O2SAT 97–100
[2018-03-03] MEDS: CHLORHEXIDINE GLUCONATE 2 % 1 PACK (2 CLOTHS) TOP SCH (04:00)
[2018-03-03] MEDS: LEVOTHYROXINE SODIUM 25 MCG TAB PO SCH (05:30)
[2018-03-03] MEDS: INSULIN NovoLIN REGULAR SUPPLEMENTAL SCALE SQ SCH ×2 (07:38→11:29)
[2018-03-03] MEDS: LISINOPRIL 10 MG TAB PO SCH (09:11)
[2018-03-03] MEDS: predniSONE 20 MG TAB PO SCH (09:11)
[2018-03-03] MEDS: FAMOTIDINE 20 MG TAB PO SCH (09:11)
[2018-03-03] MEDS: DOCUSATE SODIUM 50 MG/SENNA 8.6 MG TAB PO SCH (09:11)
[2018-03-03] MEDS: CHOLECALCIFEROL (VIT D3) LIQ 400 UNITS/ML 50 ML BOTTLE PO SCH (09:12)
--- NOTE | 2018-03-03 10:56 | HHI.PR ---
Subjective Remarks Follow-up encephalopathy. States she is all right. She is following simple commands. Discussed with nursing and case management Objective Vitals Vital Signs Date Time Temp Pulse Resp B/P (MAP) Pulse Ox O2 Delivery O2 Flow Rate FiO2 03/03/18 08:01 67 03/03/18 08:00 98.0 87 20 160/67 (98) 100 03/03/18 07:56 Room Air 03/03/18 04:00 97.3 75 17 145/65 (91) 97 03/03/18 03:55 69 03/03/18 00:00 97.2 104 22 150/68 (95) 98 03/02/18 23:50 69 03/02/18 22:35 96 03/02/18 20:00 Room Air 03/02/18 19:00 97 03/02/18 16:00 53 03/02/18 16:00 97.1 79 20 124/91 (102) 84 03/02/18 12:00 97.0 69 20 196/95 (128) 89 03/02/18 12:00 63 I/O 03/02/18 03/02/18 03/02/18 03/03/18 03/03/18 03/03/18 07:00 15:00 23:00 07:00 15:00 23:00 Intake Total 1020 ml 320 ml Balance 1020 ml 320 ml Intake Oral 240 ml 320 ml Tube Feeding 480 ml Tube Irrigant 300 ml # Voids 3 # Bowel Movements 0 Result Diagram: 02/28/18 1056 03/01/18 0650 Imaging Last Impressions Cholangiopancreatography MRI 02/23/18 0000 Signed Impressions: Service Date/Time: Friday, February 23, 2018 22:07 - CONCLUSION: 1. No intra-or extrahepatic biliary ductal dilatation. 2. Hepatic cysts. 3. Bilateral pleural effusions. Dagoberto Talbot MD Abdomen X-Ray 02/23/18 0000 Signed Impressions: Service Date/Time: Friday, February 23, 2018 15:58 - CONCLUSION: No contraindication to MRI seen on the film Osito Pereira MD Liver Ultrasound 02/20/18 0000 Signed Impressions: Service Date/Time: Tuesday, February 20, 2018 18:47 - CONCLUSION: 1. No gallstones or ductal dilatation. Right-sided medical renal disease. Trace free fluid. Javier Walden MD Head CT 02/20/18 0000 Signed Impressions: Service Date/Time: Tuesday, February 20, 2018 13:57 - CONCLUSION: No acute disease. Bud Benton Jr., MD Chest X-Ray 02/20/18 0000 Signed Impressions: Service Date/Time: Tuesday, February 20, 2018 14:00 - CONCLUSION: Minimal parenchymal changes left base. Sudhakar Angel MD FACR Objective Remarks GENERAL: Patient is 62 yo lying in bed in no acute resp distress SKIN: Warm and dry. CARDIOVASCULAR: Regular rate and rhythm without murmurs, gallops, or rubs. RESPIRATORY: Breath sounds equal bilaterally. No accessory muscle use. GASTROINTESTINAL: Abdomen soft, non-tender, nondistended. PEG tube in place. MUSCULOSKELETAL: No cyanosis, or edema. Neuro:Awake and oriented to person, ff commands. Generalized weakness. Speech difficult to understand Procedures EGD and PEG A/P Problem List: (1) Altered mental status ICD Code: R41.82 - Altered mental status Status: Acute Assessment and Plan Metabolic encephalopathy with a history of dementia and mental retardation. EEG w/o sz. Ct to monitor . DC restraints. PT consultation Respiratory insufficiency. Resolving will wean steroids switched to p.o. then wean Status post hypoglycemic episode. Stable decrease FS to QID consider dc when off steroids Severe hypertension. Improving continue AMADOR and monitor CMP EF 35%. AMADOR unable to start beta-becca secondary to bradycardia elevated LFT's likely from shock liver and rhabdomyolysis. Workup has been negative. Continue to await Anemia stable. Guaiac positive status post normal EGD. Continue Pepcid FEN. Ct PEG TF 2/2 malnutrition. Abd binder DVT prophylaxis with SCDs, heparin subQ held given anemia and Hemoccult positive Discharge Planning Needs placement CM ff Palliative care is following Problem Qualifiers (1) Altered mental status: Qualified Codes: R41.82 - Altered mental status, unspecified Dmitriy Clement MD Mar 03, 2018 10:56
[2018-03-03] MEDS ORDERED: CHOL400D3 PO (11:41)
[2018-03-03] MEDS ORDERED: PRED20 PO (11:41)
[2018-03-03] MEDS ORDERED: LEVO25TA4 PO (11:41)
[2018-03-03] MEDS ORDERED: FAMO20TA2 PO (11:41)
[2018-03-03] MEDS ORDERED: LISI-515 PO (11:43)
--- NOTE | 2018-03-03 11:43 | HHI.DCPOC ---
Discharge Care Plan Diagnosis: (1) Altered mental status (2) Hypertensive urgency Your Health Problems Are: Difficulty with ADL Exercise Tolerance Goals to Promote Your Health * To prevent worsening of your condition and complications * To maintain your health at the optimal level Directions to Meet Your Goals Take your medications as prescribed Follow your dietary instruction Follow activity as directed Keep your appointments as scheduled Take your immunizations and boosters as scheduled If your symptoms worsen call your PCP, if no PCP go to Urgent Care Center or Emergency Room Smoking is Dangerous to Your Health. Avoid second hand smoke Call the 24-hour hour crisis hotline for domestic abuse at Dmitriy Clement MD Mar 03, 2018 11:43
--- NOTE | 2018-03-03 16:28 | HHI.DS ---
Discharge Summary Admission Date Feb 20, 2018 at 14:34 Discharge Date: Mar 03, 2018 Admitting Diagnosis altered mental status, anemia, Fall (1) Altered mental status ICD Code: R41.82 - Altered mental status Diagnosis: Principal Status: Acute Procedures EGD and PEG Brief History - From Admission Patient is a 62-year-old female with a history of hypertension, mental retardation with underlying dementia, who presented to [facility] ED via ambulance as a stroke alert. The patient is status post a fall and hit her forehead. She was found to be hypoglycemic with a blood sugar of 53 and was given 10 grams of D10 and then her sugar was 130. CBC/BMP: 02/28/18 1056 03/01/18 0650 Significant Findings Laboratory Tests Test 03/01/18 06:50 Blood Urea Nitrogen 31 MG/DL (7-18) Random Glucose 124 MG/DL (74-106) Calcium Level 7.8 MG/DL (8.5-10.1) Sodium Level 146 MEQ/L (136-145) Chloride Level 116 MEQ/L (98-107) Imaging Last Impressions Cholangiopancreatography MRI 02/23/18 0000 Signed Impressions: Service Date/Time: Friday, February 23, 2018 22:07 - CONCLUSION: 1. No intra-or extrahepatic biliary ductal dilatation. 2. Hepatic cysts. 3. Bilateral pleural effusions. Dagoberto Talbot MD Abdomen X-Ray 02/23/18 0000 Signed Impressions: Service Date/Time: Friday, February 23, 2018 15:58 - CONCLUSION: No contraindication to MRI seen on the film Osito Pereira MD Liver Ultrasound 02/20/18 0000 Signed Impressions: Service Date/Time: Tuesday, February 20, 2018 18:47 - CONCLUSION: 1. No gallstones or ductal dilatation. Right-sided medical renal disease. Trace free fluid. Javier Walden MD Head CT 02/20/18 0000 Signed Impressions: Service Date/Time: Tuesday, February 20, 2018 13:57 - CONCLUSION: No acute disease. Bud Benton Jr., MD Chest X-Ray 02/20/18 0000 Signed Impressions: Service Date/Time: Tuesday, February 20, 2018 14:00 - CONCLUSION: Minimal parenchymal changes left base. Sudhakar Angel MD FACR PE at Discharge GENERAL: Patient is 62 yo lying in bed in no acute resp distress SKIN: Warm and dry. CARDIOVASCULAR: Regular rate and rhythm without murmurs, gallops, or rubs. RESPIRATORY: Breath sounds equal bilaterally. No accessory muscle use. GASTROINTESTINAL: Abdomen soft, non-tender, nondistended. PEG tube in place. MUSCULOSKELETAL: No cyanosis, or edema. Neuro:Awake and oriented to person, ff commands. Generalized weakness. Speech difficult to understand Hospital Course Metabolic encephalopathy with a history of dementia and mental retardation. EEG w/o sz. Ct to monitor . DC restraints. PT consultation Respiratory insufficiency. Resolving will wean steroids switched to p.o. then wean Status post hypoglycemic episode. Stable decrease FS to QID consider dc when off steroids Severe hypertension. Improving continue AMADOR and monitor CMP EF 35%. AMADOR unable to start beta-becca secondary to bradycardia elevated LFT's likely from shock liver and rhabdomyolysis. Workup has been negative. Continue to await Anemia stable. Guaiac positive status post normal EGD. Continue Pepcid FEN. Ct PEG TF 2/2 malnutrition. Abd binder DVT prophylaxis with SCDs, heparin subQ held given anemia and Hemoccult positive Pt Condition on Discharge: Stable Discharge Disposition: Discharge to SNF Discharge Time: > 30 minutes Discharge Instructions DIET: Follow Instructions for: On Tube Feeding, Pureed Diet Activities you can perform: Regular-No Restrictions Activities to Avoid: Driving Follow up Referrals: PCP Follow-up - 1 Week SNF/DOREEN/HH with [facility] New Medications: Cholecalciferol Liq Drops (Vitamin D3 Liq Drops) 400 Unit/Ml Drops 2000 UNITS PO DAILY for vitamin D, #30 DROP Famotidine (Famotidine) 20 Mg Tab 20 MG PO BID for Manage Heartburn, #60 TAB Levothyroxine (Levothyroxine) 25 Mcg Tab 37.5 MCG PO DAILY@0600 for Thyroid Supplement, #30 TAB Lisinopril (Lisinopril) 20 Mg Tab 20 MG PO BID for Blood Pressure Management, #60 TAB Prednisone (Prednisone) 20 Mg Tab 40 MG PO DAILY for Control Inflammation, #5 TAB take 2 pills for one day then one pill daily for 2 days then 1/2 pill for 2 days Dmitriy Clement MD Mar 03, 2018 16:28
[2018-03-03] MEDS ORDERED: LISINOPRIL 20 MG TAB PO SCH (21:00)
== END 2018-03-03 17:52 | DRG 70 ==
LOC: NEPC 13:45 → NEDA 14:34 → HIMN 17:45 → N04A 02-27 22:34
PROVIDERS: ADMIT Internal Medicine; ATTEND Internal Medicine
PROC: 0DH63UZ Insertion of Feeding Device into Stomach, Percutaneous Approach (ICD-10-PCS; principal; 2018-02-25 15:04)
DX: G93.41 Metabolic encephalopathy (principal); K72.00 Acute and subacute hepatic failure without coma; R64 Cachexia; E43 Unspecified severe protein-calorie malnutrition; I95.9 Hypotension, unspecified; M62.82 Rhabdomyolysis; Z78.1 Physical restraint status; F03.90 Unspecified dementia, unspecified severity, without behavioral disturbance, psychotic disturbance, mood disturbance, and anxiety; Z68.1 Body mass index [BMI] 19.9 or less, adult; E16.2 Hypoglycemia, unspecified; E87.6 Hypokalemia; I10 Essential (primary) hypertension; R00.1 Bradycardia, unspecified; F79 Unspecified intellectual disabilities; R47.1 Dysarthria and anarthria; R06.03 Acute respiratory distress; D64.9 Anemia, unspecified; I16.0 Hypertensive urgency; E03.9 Hypothyroidism, unspecified; N28.9 Disorder of kidney and ureter, unspecified; Z66 Do not resuscitate; R74.0 Nonspecific elevation of levels of transaminase and lactic acid dehydrogenase [LDH]; R68.0 Hypothermia, not associated with low environmental temperature; Z91.81 History of falling
CPT/HCPCS: 36600; 70450; 71045; 74018; 74181; 76377; 76705; 80048; 80053; 80074; 80307; 82103; 82140; 82180; 82248; 82272; 82306; 82390; 82550; 82552; 82728; 82784; 82805; 82948; 83516; 83520; 83540; 83550; 83605; 83655; 83735; 84100; 84207; 84425; 84439; 84443; 84446; 84481; 84484; 84590; 85014; 85018; 85025; 85384; 85610; 85730; 86038; 86255; 86850; 86900; 86901; 87641; 93005; 93306; 94640; 94664; 95819; J0360; J0461; J0610; J0690; J1644; J1720; J3480; J7030; J7040; J7042; J7512

== ENCOUNTER 2018-06-03 15:41 | Observation (INO) ==
--- NOTE | 2018-06-03 17:10 | ED ---
HPI General Chief Complaint: Altered Mental Status Stated Complaint: Ams/Evac/[facility] Time Seen by Provider: 06/03/18 16:00 Source: patient and other (SNF report) Mode of arrival: EMS Limitations: altered mental status History of Present Illness HPI narrative: 62-year-old female presents to the ED via EMS for evaluation of altered mental status. Patient lives at [facility]. Per the nurses report there the patient has not been eating for the last few days and stopped talking today. They state that the patient is altered as compared to baseline. On arrival the patient is alert. She occasionally answeres questions appropriately. She denies any pain. She has slurred speech and is difficult to understand. She is unable to provide any meaningful history. Related Data Home Medications Medication Instructions Recorded Confirmed cholecalciferol (vitamin D3) 1,000 unit PO DAILY 06/03/18 06/03/18 [Vitamin D3] duloxetine [Cymbalta] 30 mg PO DAILY 06/03/18 06/03/18 famotidine [Pepcid] 20 mg PO BID 06/03/18 06/03/18 levothyroxine [Synthroid] 75 mcg PO DAILY 06/03/18 06/03/18 lisinopril 20 mg PO DAILY 06/03/18 06/03/18 lorazepam 0.5 mg PO DAILY 06/03/18 06/03/18 potassium chloride 20 meq PO DAILY 06/03/18 06/03/18 Allergies Allergy/AdvReac Type Severity Reaction Status Date / Time No Known Allergies Allergy Unverified 06/03/18 17:56 Review of Systems ROS Unobtainable unobtainable due to mental status PMFSH Medical History Medical History Altered mental status (Acute) Anemia (Acute) Apnea (Acute) History of falling (Acute) Hypothyroidism (Acute) Surgical history unknown (Acute) Family History Family History Other Unknown family medical history Social History Social History Substance History: No History of Abuse Second Hand Smoke Exposure: No Smoking Status: Never smoker How Often Do You Have a Drink Containing Alcohol: Never Recent Travel in [place] within the Last 8 Weeks: No Recent Out of Country Travel within the Last 8 Weeks: No Exam Narrative Exam Narrative: GENERAL: Well-nourished -Ind[place]ian female no acute distress. SKIN: Focused skin assessment warm/dry. HEAD: Atraumatic. Normocephalic. EYES: Pupils equal and round. No scleral icterus. No injection or drainage. ENT: No nasal bleeding or discharge. Mucous membranes pink and moist. NECK: Trachea midline. No JVD. CARDIOVASCULAR: Regular rate and rhythm. No murmur appreciated. RESPIRATORY: No accessory muscle use. Clear to auscultation. Breath sounds equal bilaterally. GASTROINTESTINAL: Abdomen soft, non-tender, nondistended. Hepatic and splenic margins not palpable. MUSCULOSKELETAL: No obvious deformities. No clubbing. No cyanosis. No edema. NEUROLOGICAL: Awake and alert. Follows commands. Motor grossly within normal limits. Slurred speech. PSYCH: Calm and cooperative Course Initial Documented Vital Signs Pulse Rate 84 06/03/18 16:30 Respiratory Rate 20 06/03/18 16:30 Blood Pressure 173/104 H 06/03/18 16:30 Pulse Oximetry 94 L 06/03/18 16:30 Last Documented Vital Signs Temperature 97.9 F 06/03/18 16:54 Pulse Rate 86 06/03/18 17:00 Respiratory Rate 18 06/03/18 16:54 Blood Pressure 123/88 06/03/18 16:54 Pulse Oximetry 98 06/03/18 17:00 NIH Stroke Scale NIH Stroke Scale Level of Consciousness: 0-Alert Orientation Questions: 2-Neither task correct Responds to Commands: 1-One task correct Gaze Eye Movement: 0-Horizontal movement WNL Visual [place]: 0-No visual field defect Facial Movement: 0-Normal Motor Functions Arm LEFT: 0-No drift Motor Functions Arm RIGHT: 0-No drift Motor Functions Leg LEFT: 0-No drift Motor Functions Leg RIGHT: 0-No drift Limb Ataxia: 0-No ataxia Sensory Loss: 0-No sensory loss Best Language: 0-Normal Articulation: 0-Normal Extinction or Inattention Sensory: 0-Absent Total: 3 Medical Decision Making MDM Narrative Medical decision making narrative: 62-year-old female with PMH of dementia, MR presents the ED via EMS from her [facility] for evaluation of 1 day history of altered mental status. Her nurses report she has not been eating for the last couple days and today stopped talking. On arrival the patient is alert and follows commands. She has very slurred speech and is difficult to understand. I reviewed the chart and this is baseline for the patient. Vitals reviewed. Abdominal exam is unremarkable. Per the chart review the patient had a G-tube inserted at last visit. I see a scar on the abdomen but there is definitely no G tube present. IV was established. Patient was administered 1 L normal saline. CBC: WBC 7.2. Hemoglobin 12.8. INR 1.6. CMP: Calcium 8.1. BUN 36, creatinine 138. Bilirubin 1.3. AST 352, ALT 411. Alk phos 196 Lactic acid 3.4. Repeat lactic acid pending Ammonia 41. UA: Cloudy, 16 WBCs, few WBC clumps, many bacteria, moderate leukocyte esterase. CT brain: No acute abnormality. EKG: T-wave inversions in 2, 3, aVL, V5 and V6. This is new as compared to previous EKG 02/20/18. Cardiac enzymes: Troponin less than 0.02. CK-MB 4.4. Repeat EKG and enzymes ordered and pending. CXR: Cardiomegaly, mild by basilar airspace disease, small effusion. US RUQ: Gallbladder thickening. Formal read pending. Per the record review the patient is a DNR. Seems there was difficulty finding a medical decision maker at last admission. Patient was administered 2 L normal saline, 20 mg lactulose, 1 g Rocephin. I spoke with Dr. Adler who agrees to accept the patient to the medicine service. Please see medicine notes for disposition. Differential Diagnosis Differential Diagnosis: UTI versus PNA versus versus metabolic derangement versus ICH versus ACS versus other Lab Data Result diagrams: 06/03/18 17:10 06/03/18 17:10 Lab Results 06/03/18 06/03/18 06/03/18 Range/Units 17:00 17:10 17:10 WBC 7.2 (4.0-11.0) th/mm3 RBC 4.70 (4.00-5.30) mil/mm3 Hgb 12.8 (11.6-15.3) gm/dL Hct 41.1 (35.0-46.0) % MCV 87.4 (80.0-100.0) fL MCH 27.2 (27.0-34.0) pg MCHC 31.1 L (32.0-36.0) % RDW 20.4 H (11.6-17.2) % Plt Count 116 L (150-450) th/mm3 MPV 9.9 (7.0-11.0) fL Prelim Diff (Auto) Slide review pending Neut % (Auto) 38.1 (16.0-70.0) % Lymph % (Auto) 50.0 H (9.0-44.0) % [place] % (Auto) 9.5 H (0.0-8.0) % Eos % (Auto) 1.8 (0.0-4.0) % Baso % (Auto) 0.6 (0.0-2.0) % Neut # (Auto) 2.7 (1.8-7.7) th/mm3 Lymph # (Auto) 3.6 (1.0-4.8) th/mm3 [place] # (Auto) 0.7 (0.0-0.9) th/mm3 Eos # (Auto) 0.1 (0.0-0.4) th/mm3 Baso # (Auto) 0.0 (0.0-0.2) th/mm3 WBC Differential . Diff Scan Auto diff confirmed Differential Comment . Platelet Estimate Low L (Normal) Platelet Morphology Normal (Normal) Ovalocytes 1+ H (None) Keratocytes Occ H (None) PT 16.6 H (9.8-11.6) sec INR 1.6 Ratio APTT 26.8 (24.3-30.1) sec Sodium (136-145) meq/L Potassium (3.5-5.1) meq/L Chloride (98-107) meq/L Carbon Dioxide (21.0-32.0) meq/L Anion Gap (5-15) meq/L BUN (7-18) mg/dL Creatinine (0.50-1.00) mg/dL Estimated GFR (>89) mL/min POC Glucose 73 (68-110) mg/dl Random Glucose (74-106) mg/dL Lactic Acid (0.4-2.0) mmol/L Calcium (8.5-10.1) mg/dL Total Bilirubin (0.2-1.0) mg/dL AST (15-37) U/L ALT (10-53) U/L Alkaline Phosphatase (45-117) U/L Ammonia (11-32) mcmol/L Total Creatine Kinase (26-192) U/L CK-MB (CK-2) (0.5-3.6) ng/mL CK-MB (CK-2) % (0.0-4.0) % Troponin I (0.02-0.05) ng/mL Total Protein (6.4-8.2) g/dL Albumin (3.4-5.0) g/dL Urine Color (Yellw/Straw) Urine Clarity (Clear) Urine pH (5.0-8.5) Ur Specific [place] (1.002-1.035) Urine Protein (Neg-Trace) mg/dL Urine Glucose (UA) (Negative) mg/dL Urine Ketones (Negative) mg/dL Urine Occult Blood (Negative) Urine Nitrate (Negative) Urine Bilirubin (Negative) Urine Urobilinogen (Less than 2) mg/dL Ur Leukocyte Esterase (Negative) Urine RBC (0-3) /hpf Urine WBC (0-5) /hpf Urine WBC Clumps (None) Ur Squamous Epith Cells (0-5) /hpf Urine Bacteria (None) /hpf Micro UA Comment Urine Culture Comments 06/03/18 06/03/18 06/03/18 Range/Units 17:10 17:10 17:10 WBC (4.0-11.0) th/mm3 RBC (4.00-5.30) mil/mm3 Hgb (11.6-15.3) gm/dL Hct (35.0-46.0) % MCV (80.0-100.0) fL MCH (27.0-34.0) pg MCHC (32.0-36.0) % RDW (11.6-17.2) % Plt Count (150-450) th/mm3 MPV (7.0-11.0) fL Prelim Diff (Auto) Neut % (Auto) (16.0-70.0) % Lymph % (Auto) (9.0-44.0) % [place] % (Auto) (0.0-8.0) % Eos % (Auto) (0.0-4.0) % Baso % (Auto) (0.0-2.0) % Neut # (Auto) (1.8-7.7) th/mm3 Lymph # (Auto) (1.0-4.8) th/mm3 [place] # (Auto) (0.0-0.9) th/mm3 Eos # (Auto) (0.0-0.4) th/mm3 Baso # (Auto) (0.0-0.2) th/mm3 WBC Differential Diff Scan Differential Comment Platelet Estimate (Normal) Platelet Morphology (Normal) Ovalocytes (None) Keratocytes (None) PT (9.8-11.6) sec INR Ratio APTT (24.3-30.1) sec Sodium 139 (136-145) meq/L Potassium 5.0 (3.5-5.1) meq/L Chloride 106 (98-107) meq/L Carbon Dioxide 18.0 L (21.0-32.0) meq/L Anion Gap 15 (5-15) meq/L BUN 36 H (7-18) mg/dL Creatinine 1.38 H (0.50-1.00) mg/dL Estimated GFR 47 L (>89) mL/min POC Glucose (68-110) mg/dl Random Glucose 87 (74-106) mg/dL Lactic Acid 3.4 H (0.4-2.0) mmol/L Calcium 8.1 L (8.5-10.1) mg/dL Total Bilirubin 1.3 H (0.2-1.0) mg/dL AST 352 H (15-37) U/L ALT 411 H (10-53) U/L Alkaline Phosphatase 196 H (45-117) U/L Ammonia 41 H (11-32) mcmol/L Total Creatine Kinase 337 H (26-192) U/L CK-MB (CK-2) 4.4 H (0.5-3.6) ng/mL CK-MB (CK-2) % 1.3 (0.0-4.0) % Troponin I Less than 0.02 L (0.02-0.05) ng/mL Total Protein 7.7 (6.4-8.2) g/dL Albumin 3.6 (3.4-5.0) g/dL Urine Color (Yellw/Straw) Urine Clarity (Clear) Urine pH (5.0-8.5) Ur Specific [place] (1.002-1.035) Urine Protein (Neg-Trace) mg/dL Urine Glucose (UA) (Negative) mg/dL Urine Ketones (Negative) mg/dL Urine Occult Blood (Negative) Urine Nitrate (Negative) Urine Bilirubin (Negative) Urine Urobilinogen (Less than 2) mg/dL Ur Leukocyte Esterase (Negative) Urine RBC (0-3) /hpf Urine WBC (0-5) /hpf Urine WBC Clumps (None) Ur Squamous Epith Cells (0-5) /hpf Urine Bacteria (None) /hpf Micro UA Comment Urine Culture Comments 06/03/18 06/03/18 Range/Units 17:12 20:20 WBC (4.0-11.0) th/mm3 RBC (4.00-5.30) mil/mm3 Hgb (11.6-15.3) gm/dL Hct (35.0-46.0) % MCV (80.0-100.0) fL MCH (27.0-34.0) pg MCHC (32.0-36.0) % RDW (11.6-17.2) % Plt Count (150-450) th/mm3 MPV (7.0-11.0) fL Prelim Diff (Auto) Neut % (Auto) (16.0-70.0) % Lymph % (Auto) (9.0-44.0) % [place] % (Auto) (0.0-8.0) % Eos % (Auto) (0.0-4.0) % Baso % (Auto) (0.0-2.0) % Neut # (Auto) (1.8-7.7) th/mm3 Lymph # (Auto) (1.0-4.8) th/mm3 [place] # (Auto) (0.0-0.9) th/mm3 Eos # (Auto) (0.0-0.4) th/mm3 Baso # (Auto) (0.0-0.2) th/mm3 WBC Differential Diff Scan Differential Comment Platelet Estimate (Normal) Platelet Morphology (Normal) Ovalocytes (None) Keratocytes (None) PT (9.8-11.6) sec INR Ratio APTT (24.3-30.1) sec Sodium (136-145) meq/L Potassium (3.5-5.1) meq/L Chloride (98-107) meq/L Carbon Dioxide (21.0-32.0) meq/L Anion Gap (5-15) meq/L BUN (7-18) mg/dL Creatinine (0.50-1.00) mg/dL Estimated GFR (>89) mL/min POC Glucose (68-110) mg/dl Random Glucose (74-106) mg/dL Lactic Acid 3.6 H (0.4-2.0) mmol/L Calcium (8.5-10.1) mg/dL Total Bilirubin (0.2-1.0) mg/dL AST (15-37) U/L ALT (10-53) U/L Alkaline Phosphatase (45-117) U/L Ammonia (11-32) mcmol/L Total Creatine Kinase (26-192) U/L CK-MB (CK-2) (0.5-3.6) ng/mL CK-MB (CK-2) % (0.0-4.0) % Troponin I (0.02-0.05) ng/mL Total Protein (6.4-8.2) g/dL Albumin (3.4-5.0) g/dL Urine Color Yellow (Yellw/Straw) Urine Clarity Cloudy H (Clear) Urine pH 5.0 (5.0-8.5) Ur Specific [place] 1.012 (1.002-1.035) Urine Protein 30 H (Neg-Trace) mg/dL Urine Glucose (UA) Negative (Negative) mg/dL Urine Ketones Negative (Negative) mg/dL Urine Occult Blood Moderate H (Negative) Urine Nitrate Negative (Negative) Urine Bilirubin Negative (Negative) Urine Urobilinogen 4 or greater (Less than 2) mg/dL Ur Leukocyte Esterase Moderate H (Negative) Urine RBC 2 (0-3) /hpf Urine WBC 16 H (0-5) /hpf Urine WBC Clumps Few H (None) Ur Squamous Epith Cells 1 (0-5) /hpf Urine Bacteria Many H (None) /hpf Micro UA Comment Cath-culture ind Urine Culture Comments Cath-cult indicated Imaging Data Radiologist's impression: ITS Impressions Chest X-Ray 06/03/18 17:16 CONCLUSION: Cardiomegaly with mild basilar airspace disease and small effusions. Head CT 06/03/18 17:16 CONCLUSION: 1. No acute intracranial abnormality. The sella is enlarged but stable since 2012. Gallbladder Ultrasound 06/03/18 19:21 CONCLUSION: 1. Gallstone with gallbladder sludge and mild gallbladder wall thickening which may be related to mild ascites. No biliary ductal dilatation. 2. Echogenic right kidney characteristic of medical renal disease. Discharge Plan Discharge Disposition Patient Disposition: 30 Still Patient Discharge Details Discharge Problem: Altered mental status, Acute UTI, Abnormal ECG Physicians Team ED Provider: Betty Ibrahim ED Midlevel Provider: Dior Andrade Primary Care Provider: UNKNOWN, Rxs /Orders / Referrals /Forms Prescriptions: No Action duloxetine [Cymbalta] 30 mg Capsule,Delayed Release(Dr/Ec) 30 mg PO DAILY RF: 0 levothyroxine [Synthroid] 75 mcg Tablet 75 mcg PO DAILY RF: 0 famotidine [Pepcid] 20 mg Tablet 20 mg PO BID RF: 0 lisinopril 20 mg Tablet 20 mg PO DAILY RF: 0 lorazepam 0.5 mg Tablet 0.5 mg PO DAILY RF: 0 potassium chloride 20 mEq Packet 20 meq PO DAILY RF: 0 cholecalciferol (vitamin D3) [Vitamin D3] 1,000 unit Tablet 1,000 unit PO DAILY RF: 0 Status ED Status: With Doctor
[2018-06-03 17:35] LABS: Baso % (Auto) 0.6 % (0.0-2.0); Eos # (Auto) 0.1 th/mm3 (0.0-0.4); Eos % (Auto) 1.8 % (0.0-4.0); Hematocrit 41.1 % (35.0-46.0); Hemoglobin 12.8 gm/dL (11.6-15.3); Lymph # (Auto) 3.6 th/mm3 (1.0-4.8); Mean Corpuscular HGB Conc 31.1 % (32.0-36.0); Mean Corpuscular Hemoglobin 27.2 pg (27.0-34.0); Mean Corpuscular Volume 87.4 fL (80.0-100.0); Mean Platelet Volume 9.9 fL (7.0-11.0); Mono # (Auto) 0.7 th/mm3 (0.0-0.9); Mono % (Auto) 9.5 % (0.0-8.0); Neut # (Auto) 2.7 th/mm3 (1.8-7.7); Neut % (Auto) 38.1 % (16.0-70.0); Platelet Count 116 th/mm3 (150-450); Red Cell Distribution Width 20.4 % (11.6-17.2); White Blood Count 7.2 th/mm3 (4.0-11.0)
[2018-06-03 17:46] LABS: Activated Partial Thrombo Time 26.8 sec (24.3-30.1); INR 1.6 Ratio; Prothrombin Time 16.6 sec (9.8-11.6)
[2018-06-03] MEDS ORDERED: Sod Chloride 0.9% Inj 2,000 ML IV.SIG ONE (18:24)
--- NOTE | 2018-06-03 18:29 | XR ---
EXAM DATE: 06/03/2018 5:58 PM EDT AGE/SEX: 62 years / Female INDICATIONS: Confusion, short of breath, unresponsive to communication, cough. CLINICAL DATA: This is the patient's initial encounter. Patient reports that signs and symptoms have been present for 1 day and indicates a pain score of Nonresponsive. MEDICAL/SURGICAL HISTORY: Non-responsive. Non-responsive. COMPARISON: [facility] [place], [place]. . FINDINGS: Heart size is enlarged. There is bilateral mostly basilar airspace disease with small effusions. No p neumothorax. Remote healed left-sided rib fractures. CONCLUSION: Cardiomegaly with mild basilar airspace disease and small effusions. Electronically signed by: Javier Walden MD 06/03/2018 6:28 PM EDT
[2018-06-03 18:42] LABS: Alanine Aminotransferase 411 U/L (10-53); Albumin 3.6 g/dL (3.4-5.0); Alkaline Phosphatase 196 U/L (45-117); Anion Gap 15 meq/L (5-15); Aspartate Aminotransferase 352 U/L (15-37); Blood Urea Nitrogen 36 mg/dL (7-18); Calcium 8.1 mg/dL (8.5-10.1); Chloride 106 meq/L (98-107); Creatine Kinase 337 U/L (26-192); Glomerular Filtration Rate 47 mL/min (>89); Glucose,Random 87 mg/dL (74-106); Sodium 139 meq/L (136-145); Total Protein 7.7 g/dL (6.4-8.2)
[2018-06-03 18:54] LABS: Platelet Morphology Normal (Normal)
[2018-06-03 18:55] LABS: Ovalocytes 1+
[2018-06-03 19:11] LABS: CKMB Percent 1.3 % (0.0-4.0); Creatine Kinase MB 4.4 ng/mL (0.5-3.6)
[2018-06-03 19:16] LABS: Bacteria,Urine Many /hpf; Bilirubin,Urine Negative (Negative); Clarity,Urine Cloudy (Clear); Color,Urine Yellow (Yellw/Straw); Glucose,Urine (UA) Negative (Negative); Leukocyte Esterase,Urine Moderate (Negative); Nitrite,Urine Negative (Negative); Specific Gravity,Urine 1.012 (1.002-1.035); Squamous Epithelial Cell,Urine 1 /hpf (0-5); Urobilinogen,Urine 4 or Greater mg/dL (Less than 2)
[2018-06-03] MEDS ORDERED: Bisacodyl 10 MG Supp RECTAL PRN (22:56)
--- NOTE | 2018-06-03 22:56 | US ---
EXAM DATE: 06/03/2018 10:52 PM EDT AGE/SEX: 62 years / Female INDICATIONS: Abdominal pain with loss of appetite. CLINICAL DATA: This is the patient's subsequent encounter. Patient reports that signs and/or symptom s have been present for 3 days and indicates a pain score of Nonresponsive. MEDICAL/SURGICAL HISTORY: Hypothyroidism. Anemia. Dementia. Hysterectomy. Prior PEG tube placemen t and removal. [place] [facility] [place]. . MEASUREMENTS: Liver:__ 16.6 cm. Common Bile Duct:__ 5mm. FINDINGS: Liver: Normal echotexture without focal lesion or ductal dilatation. Portal Vein: Biphasic flow seen in portal vein. Common Duct: No intraluminal mass or stone visualized. Gallbladder: Small stone in gallbladder near the gallbladder neck. There is also gallbladder sludge. Gallbladder wall is mildly thickened with some mild ascites also noted. Pancreas: Not well visualized. Right Kidney: Increased echotexture. No mass or hydronephrosis. Other: None. CONCLUSION: 1. Gallstone with gallbladder sludge and mild gallbladder wall thickening which may be related to mi ld ascites. No biliary ductal dilatation. 2. Echogenic right kidney characteristic of medical renal disease. Electronically signed by: Javier Walden MD 06/03/2018 10:55 PM EDT
[2018-06-03] MEDS ORDERED: Thiamine Inj 100 MG in Sodium Chlor 0.9% Inj 100 ML IV.SIG ONE (23:00)
[2018-06-04] MEDS: Sod Chloride 0.9% Inj 1,000 ML IV.CONT SCH ×2 (05:36→17:18)
--- NOTE | 2018-06-04 08:45 | P.CONGI ---
History of Present Illness Consult date: 06/04/18 Consult reason: transaminitis Chief complaint: UTI, AMS, Elevated LFT's, EKG Changes History of Present Illness: This is a 62 yo F with PMH significant for HTN, hypohtyroid, mental retardation with underlying dementia who was sent from her [facility] for evaluation of altered mental status. Pt is unable to provide history therefore all history obtained through chart review. According to ER notes the nurses had reported pt had not been eating for the past few days and stopped talking yesterday, which is more altered than her baseline. Our service has been consulted to evaluate pt for elevated LFTs. Our service was previously following this patient during an admission in January when she was also noted to have elevated LFTs, they were over a thousand and it was noted to be likely due to shocked liver given hypotensive episodes documented at that time. She did undergo a work up to rule out other causes which were negative except an elevated Ferritin, does not appear there was an HFE done. Pt also had a PEG during previous admission, this has since been removed. <Beatrice Orr - Last Filed: 06/04/18 08:26> Review of Systems unobtainable due to mental status <Beatrice Orr - Last Filed: 06/04/18 08:26> PMFSH - History History Provided By: Medical Record - Medical History Medical History: Medical History (Last Reviewed 06/03/18 @ 20:09 by MARGA Pérez) Altered mental status Anemia Apnea History of falling Hypothyroidism Surgical history unknown - Family History Family History: Family History (Last Updated 06/03/18 @ 18:14 by Nay Ralph) Other Unknown family medical history - Tobacco History Second Hand Smoke Exposure: No Tobacco Use In Past 30 Days: No Smoking Status: Never smoker - Alcohol History How Often Do You Have a Drink Containing Alcohol: Never - Substance Use History Substance History: No History of Abuse - Travel History Recent Travel in the [place] Within the Last 8 Weeks: No Recent Travel Out of the Country Within the Last 8 Weeks: No - Immunization History Tetanus Immunization: >5 Years Hx Influenza Vaccine This Season: Yes <Beatrice Orr - Last Filed: 06/04/18 08:26> - Medical History Medical History: Medical History (Last Reviewed 06/03/18 @ 20:09 by MARGA Pérez) Altered mental status Anemia Apnea History of falling Hypothyroidism Surgical history unknown - Family History Family History: Family History (Last Updated 06/03/18 @ 18:14 by Nay Ralph) Other Unknown family medical history <Chanel Guzman - Last Filed: 06/04/18 17:53> Medications and Allergies Active Medications: Active Medications Al Hydroxide/Mg Hydroxide (Milk Of Magnesia Liq) 30 ml PO Q12H PRN PRN Reason: Mild Constipation Bisacodyl (Dulcolax Supp) 10 mg RECTAL DAILY PRN PRN Reason: SEVERE CONSITIPATION Ceftriaxone Sodium 1,000 mg/ (Sodium Chloride) 100 mls @ 200 mls/hr IV.SIG Q24H LENA Sodium Chloride (Ns Inj) 1,000 mls @ 100 mls/hr IV.CONT .Q10H LENA Last Admin: 06/04/18 05:36 Dose: Not Given Lactulose (Lactulose Liq) 30 ml PO DAILY PRN PRN Reason: SEVERE CONSITIPATION Sennosides (Senokot) 17.2 mg PO Q12H PRN PRN Reason: Moderate Constipation Sodium Chloride (Ns Flush) 2 ml IV.FLUSH PRN PRN PRN Reason: FLUSH AFTER USING IV ACCESS <Beatirce Orr - Last Filed: 06/04/18 08:26> Active Medications: Active Medications Al Hydroxide/Mg Hydroxide (Milk Of Magnesia Liq) 30 ml PO Q12H PRN PRN Reason: Mild Constipation Bisacodyl (Dulcolax Supp) 10 mg RECTAL DAILY PRN PRN Reason: SEVERE CONSITIPATION Duloxetine HCl (Cymbalta) 30 mg PO DAILY LENA Enalaprilat (Vasotec Inj) 2.5 mg IV.PUSH Q8H PRN PRN Reason: BP > 160/90 Last Admin: 06/04/18 13:41 Dose: 2.5 mg Famotidine (Pepcid) 20 mg PO BID LENA Ceftriaxone Sodium 1,000 mg/ (Sodium Chloride) 100 mls @ 200 mls/hr IV.SIG Q24H LENA Sodium Chloride (Ns Inj) 1,000 mls @ 100 mls/hr IV.CONT .Q10H LENA Last Admin: 06/04/18 17:18 Dose: 1,000 mls/hr Lactulose (Lactulose Liq) 30 ml PO DAILY PRN PRN Reason: SEVERE CONSITIPATION Lactulose (Lactulose Liq) 30 ml PO BID LENA Last Admin: 06/04/18 09:55 Dose: Not Given Levothyroxine Sodium (Synthroid) 75 mcg PO DAILY@0600 [facility] Lisinopril (Prinivil) 20 mg PO DAILY [facility] Potassium Chloride (Kcl Powder) 20 meq PO DAILY LENA Sennosides (Senokot) 17.2 mg PO Q12H PRN PRN Reason: Moderate Constipation Sodium Chloride (Ns Flush) 2 ml IV.FLUSH PRN PRN PRN Reason: FLUSH AFTER USING IV ACCESS Vitamin D (Vitamin D3) 1,000 unit PO DAILY [facility] <Chanel Guzman - Last Filed: 06/04/18 17:53> Allergies Allergy/AdvReac Type Severity Reaction Status Date / Time No Known Allergies Allergy Unverified 06/03/18 17:56 Home Medications Medication Instructions Recorded Confirmed Type cholecalciferol (vitamin D3) 1,000 unit PO DAILY 06/03/18 06/03/18 History [Vitamin D3] duloxetine [Cymbalta] 30 mg PO DAILY 06/03/18 06/03/18 History famotidine [Pepcid] 20 mg PO BID 06/03/18 06/03/18 History levothyroxine [Synthroid] 75 mcg PO DAILY 06/03/18 06/03/18 History lisinopril 20 mg PO DAILY 06/03/18 06/03/18 History lorazepam 0.5 mg PO DAILY 06/03/18 06/03/18 History potassium chloride 20 meq PO DAILY 06/03/18 06/03/18 History Exam Vital signs: Vital Signs 06/03/18 16:30 06/03/18 16:54 06/03/18 17:00 Temperature 97.9 F Pulse Rate 84 82 86 Respiratory Rate 20 18 Blood Pressure 173/104 H 123/88 Pulse Oximetry 94 L 99 98 06/04/18 01:20 06/04/18 04:00 Temperature 97.3 F L 97.2 F L Pulse Rate 94 H 75 Respiratory Rate 18 16 Blood Pressure 138/84 143/67 H Pulse Oximetry 93 L 91 L Intake & Output 06/03/18 06/04/18 06/04/18 18:59 06:59 18:59 Intake Total 0 / 0 Balance 0 / 0 Weight 54.431 kg 48.7 kg Intake: Oral 0 / 0 Other: # Voids 2 # Bowel Movements 0 - Constitutional no acute distress - Routine HEENT Exam Head: Present: normocephalic, atraumatic - Routine Respiratory Exam Absent: accessory muscle use - Routine Cardiovascular Exam Present: RRR - Routine Abdominal Exam Present: soft, normoactive bowel sounds. Absent: distended, rebound, guarding - Routine Skin Exam Present: dry, warm - Routine Neurological Exam Present: alert. Absent: oriented X3, normal speech <Beatrice Orr - Last Filed: 06/04/18 08:26> Vital signs: Vital Signs 06/04/18 01:20 06/04/18 04:00 06/04/18 08:00 Temperature 97.3 F L 97.2 F L 97.2 F L Pulse Rate 94 H 75 82 Respiratory Rate 18 16 20 Blood Pressure 138/84 143/67 H 174/82 H Pulse Oximetry 93 L 91 L 97 06/04/18 12:00 06/04/18 16:00 Temperature 97.2 F L 97.4 F L Pulse Rate 88 78 Respiratory Rate 20 20 Blood Pressure 160/71 H 159/84 H Pulse Oximetry 99 97 Intake & Output 06/03/18 06/04/18 06/04/18 18:59 06:59 18:59 Intake Total 0 / 0 Balance 0 / 0 Weight 54.431 kg 48.7 kg Intake: Oral 0 / 0 Other: # Voids 2 # Bowel Movements 0 <Chanel Guzman - Last Filed: 06/04/18 17:53> Results - Labs CBC & Chem 7: 06/03/18 17:10 06/03/18 17:10 Labs: Laboratory Results - last 24 hr 06/03/18 06/03/18 06/03/18 17:00 17:10 17:10 WBC 7.2 RBC 4.70 Hgb 12.8 Hct 41.1 MCV 87.4 MCH 27.2 MCHC 31.1 L RDW 20.4 H Plt Count 116 L MPV 9.9 Prelim Diff (Auto) Slide review pending Neut % (Auto) 38.1 Lymph % (Auto) 50.0 H [place] % (Auto) 9.5 H Eos % (Auto) 1.8 Baso % (Auto) 0.6 Neut # (Auto) 2.7 Lymph # (Auto) 3.6 [place] # (Auto) 0.7 Eos # (Auto) 0.1 Baso # (Auto) 0.0 WBC Differential . Diff Scan Auto diff confirmed Differential Comment . Platelet Estimate Low L Platelet Morphology Normal Ovalocytes 1+ H Keratocytes Occ H PT 16.6 H INR 1.6 APTT 26.8 Sodium Potassium Chloride Carbon Dioxide Anion Gap BUN Creatinine Estimated GFR POC Glucose 73 Random Glucose Lactic Acid Calcium Total Bilirubin AST ALT Alkaline Phosphatase Ammonia Lactate Dehydrogenase Total Creatine Kinase CK-MB (CK-2) CK-MB (CK-2) % Troponin I Total Protein Albumin Urine Color Urine Clarity Urine pH Ur Specific [place] Urine Protein Urine Glucose (UA) Urine Ketones Urine Occult Blood Urine Nitrate Urine Bilirubin Urine Urobilinogen Ur Leukocyte Esterase Urine RBC Urine WBC Urine WBC Clumps Ur Squamous Epith Cells Urine Bacteria Micro UA Comment Urine Culture Comments 06/03/18 06/03/18 06/03/18 17:10 17:10 17:10 WBC RBC Hgb Hct MCV MCH MCHC RDW Plt Count MPV Prelim Diff (Auto) Neut % (Auto) Lymph % (Auto) [place] % (Auto) Eos % (Auto) Baso % (Auto) Neut # (Auto) Lymph # (Auto) [place] # (Auto) Eos # (Auto) Baso # (Auto) WBC Differential Diff Scan Differential Comment Platelet Estimate Platelet Morphology Ovalocytes Keratocytes PT INR APTT Sodium 139 Potassium 5.0 Chloride 106 Carbon Dioxide 18.0 L Anion Gap 15 BUN 36 H Creatinine 1.38 H Estimated GFR 47 L POC Glucose Random Glucose 87 Lactic Acid 3.4 H Calcium 8.1 L Total Bilirubin 1.3 H AST 352 H ALT 411 H Alkaline Phosphatase 196 H Ammonia 41 H Lactate Dehydrogenase Total Creatine Kinase 337 H CK-MB (CK-2) 4.4 H CK-MB (CK-2) % 1.3 Troponin I Less than 0.02 L Total Protein 7.7 Albumin 3.6 Urine Color Urine Clarity Urine pH Ur Specific [place] Urine Protein Urine Glucose (UA) Urine Ketones Urine Occult Blood Urine Nitrate Urine Bilirubin Urine Urobilinogen Ur Leukocyte Esterase Urine RBC Urine WBC Urine WBC Clumps Ur Squamous Epith Cells Urine Bacteria Micro UA Comment Urine Culture Comments 06/03/18 06/03/18 06/03/18 17:10 17:12 20:20 WBC RBC Hgb Hct MCV MCH MCHC RDW Plt Count MPV Prelim Diff (Auto) Neut % (Auto) Lymph % (Auto) [place] % (Auto) Eos % (Auto) Baso % (Auto) Neut # (Auto) Lymph # (Auto) [place] # (Auto) Eos # (Auto) Baso # (Auto) WBC Differential Diff Scan Differential Comment Platelet Estimate Platelet Morphology Ovalocytes Keratocytes PT INR APTT Sodium Potassium Chloride Carbon Dioxide Anion Gap BUN Creatinine Estimated GFR POC Glucose Random Glucose Lactic Acid 3.6 H Calcium Total Bilirubin AST ALT Alkaline Phosphatase Ammonia Lactate Dehydrogenase 691 H Total Creatine Kinase CK-MB (CK-2) CK-MB (CK-2) % Troponin I Total Protein Albumin Urine Color Yellow Urine Clarity Cloudy H Urine pH 5.0 Ur Specific [place] 1.012 Urine Protein 30 H Urine Glucose (UA) Negative Urine Ketones Negative Urine Occult Blood Moderate H Urine Nitrate Negative Urine Bilirubin Negative Urine Urobilinogen 4 or greater Ur Leukocyte Esterase Moderate H Urine RBC 2 Urine WBC 16 H Urine WBC Clumps Few H Ur Squamous Epith Cells 1 Urine Bacteria Many H Micro UA Comment Cath-culture ind Urine Culture Comments Cath-cult indicated 06/03/18 23:40 WBC RBC Hgb Hct MCV MCH MCHC RDW Plt Count MPV Prelim Diff (Auto) Neut % (Auto) Lymph % (Auto) [place] % (Auto) Eos % (Auto) Baso % (Auto) Neut # (Auto) Lymph # (Auto) [place] # (Auto) Eos # (Auto) Baso # (Auto) WBC Differential Diff Scan Differential Comment Platelet Estimate Platelet Morphology Ovalocytes Keratocytes PT INR APTT Sodium Potassium Chloride Carbon Dioxide Anion Gap BUN Creatinine Estimated GFR POC Glucose Random Glucose Lactic Acid Calcium Total Bilirubin AST ALT Alkaline Phosphatase Ammonia Lactate Dehydrogenase Cancelled Total Creatine Kinase CK-MB (CK-2) CK-MB (CK-2) % Troponin I Total Protein Albumin Urine Color Urine Clarity Urine pH Ur Specific [place] Urine Protein Urine Glucose (UA) Urine Ketones Urine Occult Blood Urine Nitrate Urine Bilirubin Urine Urobilinogen Ur Leukocyte Esterase Urine RBC Urine WBC Urine WBC Clumps Ur Squamous Epith Cells Urine Bacteria Micro UA Comment Urine Culture Comments - Imaging Impressions Chest X-Ray 06/03/18 17:16 CONCLUSION: Cardiomegaly with mild basilar airspace disease and small effusions. Head CT 07/04/18 17:16 CONCLUSION: 1. No acute intracranial abnormality. The sella is enlarged but stable since 2012. Gallbladder Ultrasound 06/03/18 19:21 CONCLUSION: 1. Gallstone with gallbladder sludge and mild gallbladder wall thickening which may be related to mild ascites. No biliary ductal dilatation. 2. Echogenic right kidney characteristic of medical renal disease. <Beatrice Orr - Last Filed: 06/04/18 08:26> - Labs CBC & Chem 7: 06/04/18 07:33 06/04/18 07:33 Labs: Laboratory Results - last 24 hr 06/03/18 06/03/18 06/03/18 17:10 17:10 17:10 WBC 7.2 RBC 4.70 Hgb 12.8 Hct 41.1 MCV 87.4 MCH 27.2 MCHC 31.1 L RDW 20.4 H Plt Count 116 L MPV 9.9 Prelim Diff (Auto) Slide review pending Neut % (Auto) 38.1 Lymph % (Auto) 50.0 H [place] % (Auto) 9.5 H Eos % (Auto) 1.8 Baso % (Auto) 0.6 Neut # (Auto) 2.7 Lymph # (Auto) 3.6 [place] # (Auto) 0.7 Eos # (Auto) 0.1 Baso # (Auto) 0.0 WBC Differential . Diff Scan Auto diff confirmed Differential Comment . Platelet Estimate Low L Platelet Morphology Normal Ovalocytes 1+ H Keratocytes Occ H PT INR Sodium 139 Potassium 5.0 Chloride 106 Carbon Dioxide 18.0 L Anion Gap 15 BUN 36 H Creatinine 1.38 H Estimated GFR 47 L POC Glucose Random Glucose 87 Lactic Acid 3.4 H Calcium 8.1 L Total Bilirubin 1.3 H AST 352 H ALT 411 H Alkaline Phosphatase 196 H Ammonia Lactate Dehydrogenase Total Creatine Kinase 337 H CK-MB (CK-2) 4.4 H CK-MB (CK-2) % 1.3 Troponin I Less than 0.02 L Total Protein 7.7 Albumin 3.6 Urine Color Urine Clarity Urine pH Ur Specific [place] Urine Protein Urine Glucose (UA) Urine Ketones Urine Occult Blood Urine Nitrate Urine Bilirubin Urine Urobilinogen Ur Leukocyte Esterase Urine RBC Urine WBC Urine WBC Clumps Ur Squamous Epith Cells Urine Bacteria Micro UA Comment Urine Culture Comments 06/03/18 06/03/18 06/03/18 17:10 17:10 17:12 WBC RBC Hgb Hct MCV MCH MCHC RDW Plt Count MPV Prelim Diff (Auto) Neut % (Auto) Lymph % (Auto) [place] % (Auto) Eos % (Auto) Baso % (Auto) Neut # (Auto) Lymph # (Auto) [place] # (Auto) Eos # (Auto) Baso # (Auto) WBC Differential Diff Scan Differential Comment Platelet Estimate Platelet Morphology Ovalocytes Keratocytes PT INR Sodium Potassium Chloride Carbon Dioxide Anion Gap BUN Creatinine Estimated GFR POC Glucose Random Glucose Lactic Acid Calcium Total Bilirubin AST ALT Alkaline Phosphatase Ammonia 41 H Lactate Dehydrogenase 691 H Total Creatine Kinase CK-MB (CK-2) CK-MB (CK-2) % Troponin I Total Protein Albumin Urine Color Yellow Urine Clarity Cloudy H Urine pH 5.0 Ur Specific [place] 1.012 Urine Protein 30 H Urine Glucose (UA) Negative Urine Ketones Negative Urine Occult Blood Moderate H Urine Nitrate Negative Urine Bilirubin Negative Urine Urobilinogen 4 or greater Ur Leukocyte Esterase Moderate H Urine RBC 2 Urine WBC 16 H Urine WBC Clumps Few H Ur Squamous Epith Cells 1 Urine Bacteria Many H Micro UA Comment Cath-culture ind Urine Culture Comments Cath-cult indicated 06/03/18 06/03/18 06/04/18 20:20 23:40 07:33 WBC 6.1 RBC 4.82 Hgb 13.1 Hct 43.3 MCV 89.8 MCH 27.2 MCHC 30.2 L RDW 20.4 H Plt Count 95 L MPV 9.9 Prelim Diff (Auto) Slide review pending Neut % (Auto) 37.0 Lymph % (Auto) 49.4 H [place] % (Auto) 10.2 H Eos % (Auto) 3.0 Baso % (Auto) 0.4 Neut # (Auto) 2.3 Lymph # (Auto) 3.0 [place] # (Auto) 0.6 Eos # (Auto) 0.2 Baso # (Auto) 0.0 WBC Differential . Diff Scan Auto diff confirmed Differential Comment . Platelet Estimate Low L Platelet Morphology Normal Ovalocytes 1+ H Keratocytes PT INR Sodium Potassium Chloride Carbon Dioxide Anion Gap BUN Creatinine Estimated GFR POC Glucose Random Glucose Lactic Acid 3.6 H Calcium Total Bilirubin AST ALT Alkaline Phosphatase Ammonia Lactate Dehydrogenase Cancelled Total Creatine Kinase Cancelled CK-MB (CK-2) CK-MB (CK-2) % Troponin I Cancelled Total Protein Albumin Urine Color Urine Clarity Urine pH Ur Specific [place] Urine Protein Urine Glucose (UA) Urine Ketones Urine Occult Blood Urine Nitrate Urine Bilirubin Urine Urobilinogen Ur Leukocyte Esterase Urine RBC Urine WBC Urine WBC Clumps Ur Squamous Epith Cells Urine Bacteria Micro UA Comment Urine Culture Comments 06/04/18 06/04/18 06/04/18 07:33 07:33 11:07 WBC RBC Hgb Hct MCV MCH MCHC RDW Plt Count MPV Prelim Diff (Auto) Neut % (Auto) Lymph % (Auto) [place] % (Auto) Eos % (Auto) Baso % (Auto) Neut # (Auto) Lymph # (Auto) [place] # (Auto) Eos # (Auto) Baso # (Auto) WBC Differential Diff Scan Differential Comment Platelet Estimate Platelet Morphology Ovalocytes Keratocytes PT 17.4 H INR 1.7 Sodium 141 Potassium 4.4 Chloride 110 H Carbon Dioxide 15.8 L Anion Gap 15 BUN 31 H Creatinine 1.12 H Estimated GFR 59 L POC Glucose 66 L Random Glucose 54 L Lactic Acid Calcium 8.5 Total Bilirubin 1.2 H AST 251 H ALT 333 H Alkaline Phosphatase 173 H Ammonia Lactate Dehydrogenase Total Creatine Kinase 226 H CK-MB (CK-2) 3.4 CK-MB (CK-2) % 1.5 Troponin I Less than 0.02 L Total Protein 6.8 D Albumin 2.9 L D Urine Color Urine Clarity Urine pH Ur Specific [place] Urine Protein Urine Glucose (UA) Urine Ketones Urine Occult Blood Urine Nitrate Urine Bilirubin Urine Urobilinogen Ur Leukocyte Esterase Urine RBC Urine WBC Urine WBC Clumps Ur Squamous Epith Cells Urine Bacteria Micro UA Comment Urine Culture Comments 06/04/18 12:55 WBC RBC Hgb Hct MCV MCH MCHC RDW Plt Count MPV Prelim Diff (Auto) Neut % (Auto) Lymph % (Auto) [place] % (Auto) Eos % (Auto) Baso % (Auto) Neut # (Auto) Lymph # (Auto) [place] # (Auto) Eos # (Auto) Baso # (Auto) WBC Differential Diff Scan Differential Comment Platelet Estimate Platelet Morphology Ovalocytes Keratocytes PT INR Sodium Potassium Chloride Carbon Dioxide Anion Gap BUN Creatinine Estimated GFR POC Glucose 85 Random Glucose Lactic Acid Calcium Total Bilirubin AST ALT Alkaline Phosphatase Ammonia Lactate Dehydrogenase Total Creatine Kinase CK-MB (CK-2) CK-MB (CK-2) % Troponin I Total Protein Albumin Urine Color Urine Clarity Urine pH Ur Specific [place] Urine Protein Urine Glucose (UA) Urine Ketones Urine Occult Blood Urine Nitrate Urine Bilirubin Urine Urobilinogen Ur Leukocyte Esterase Urine RBC Urine WBC Urine WBC Clumps Ur Squamous Epith Cells Urine Bacteria Micro UA Comment Urine Culture Comments - Imaging Impressions Chest X-Ray 06/03/18 17:16 CONCLUSION: Cardiomegaly with mild basilar airspace disease and small effusions. Head CT 06/03/18 17:16 CONCLUSION: 1. No acute intracranial abnormality. The sella is enlarged but stable since 2012. Gallbladder Ultrasound 06/03/18 19:21 CONCLUSION: 1. Gallstone with gallbladder sludge and mild gallbladder wall thickening which may be related to mild ascites. No biliary ductal dilatation. 2. Echogenic right kidney characteristic of medical renal disease. <Chanel Guzman - Last Filed: 06/04/18 17:53> Assessment and Plan (1) Elevated LFTs Status: Acute Code(s): R94.5 - Abnormal results of liver function studies (2) Elevated ferritin Status: Acute Code(s): R79.89 - Other specified abnormal findings of blood chemistry - Plan Assessment: - Elevated LFTs with hyperammonemia Previously seen by our service during her last hospital admission in January and underwent liver work up. At that time LFTs were over 1000 and pt was noted to have hypotensive episodes and therefore it was said to be likely secondary to shocked liver. Previous liver work up in January: CONNIE, AMA, ASMA, celiac panel, hepatitis panel negative Ceruloplasmin-30 AAT-169 Iron-50 TIBC-182 % sat-27.5 Ferritin-[id number] MRCP (February 23) No intra-or extrahepatic biliary ductal dilatation. Hepatic cysts. Bilateral pleural effusions. This admission: US gallbladder (06/03) Gallstone with gallbladder sludge and mild gallbladder wall thickening which may be related to mild ascites. No biliary ductal dilatation. (06/03) AST-352 ALT-411 Alk phos-196 T bili-1.3 ? cirrhosis- thrombocytopenia- plts 116 coagulopathy- INR 1.6 but no hypoalbuminemia - AMS- per NH staff pt has not been eating for a few days and stopped talking yesterday- baseline mental retardation with underlying dementia however has been eating and minimally communicating? Pt had previous PEG during last admission, since been removed Plan: HFE Repeat hepatitis panel Avoid hepatotoxins Monitor LFTs Lactulose BID Monitor ammonia level Further recommendations based on clinical course and results of above Pt has been seen and examined by myself and Dr. Guzman and this note is written on her behalf <Beatrice Orr - Last Filed: 06/04/18 08:26> (1) Elevated LFTs Status: Acute Code(s): R94.5 - Abnormal results of liver function studies (2) Elevated ferritin Status: Acute Code(s): R79.89 - Other specified abnormal findings of blood chemistry - Attending Attestation seen, examined agree with above <Chanel Guzman - Last Filed: 06/04/18 17:53>
[2018-06-04 09:22] LABS: INR 1.7 Ratio; Prothrombin Time 17.4 sec (9.8-11.6)
[2018-06-04 09:30] LABS: Baso % (Auto) 0.4 % (0.0-2.0); Eos # (Auto) 0.2 th/mm3 (0.0-0.4); Hematocrit 43.3 % (35.0-46.0); Hemoglobin 13.1 gm/dL (11.6-15.3); Lymph % (Auto) 49.4 % (9.0-44.0); Mean Corpuscular Hemoglobin 27.2 pg (27.0-34.0); Mean Corpuscular Volume 89.8 fL (80.0-100.0); Mean Platelet Volume 9.9 fL (7.0-11.0); Mono # (Auto) 0.6 th/mm3 (0.0-0.9); Mono % (Auto) 10.2 % (0.0-8.0); Neut # (Auto) 2.3 th/mm3 (1.8-7.7); Platelet Count 95 th/mm3 (150-450); Red Blood Count 4.82 mil/mm3 (4.00-5.30); Red Cell Distribution Width 20.4 % (11.6-17.2); White Blood Count 6.1 th/mm3 (4.0-11.0)
[2018-06-04 09:31] LABS: Mean Corpuscular HGB Conc 30.2 % (32.0-36.0)
[2018-06-04 09:44] LABS: Alanine Aminotransferase 333 U/L (10-53); Albumin 2.9 g/dL (3.4-5.0); Alkaline Phosphatase 173 U/L (45-117); Anion Gap 15 meq/L (5-15); Aspartate Aminotransferase 251 U/L (15-37); Blood Urea Nitrogen 31 mg/dL (7-18); Calcium 8.5 mg/dL (8.5-10.1); Carbon Dioxide 15.8 meq/L (21.0-32.0); Chloride 110 meq/L (98-107); Creatine Kinase 226 U/L (26-192); Glomerular Filtration Rate 59 mL/min (>89); Glucose,Random 54 mg/dL (74-106); Potassium 4.4 meq/L (3.5-5.1); Sodium 141 meq/L (136-145); Total Protein 6.8 g/dL (6.4-8.2)
[2018-06-04 10:01] LABS: CKMB Percent 1.5 % (0.0-4.0); Creatine Kinase MB 3.4 ng/mL (0.5-3.6)
[2018-06-04 10:21] LABS: Ovalocytes 1+; Platelet Morphology Normal (Normal)
--- NOTE | 2018-06-04 14:46 | P.HP ---
History of Present Illness Primary Care Physician: UNKNOWN Chief Complaint: Altered mental status change History of Present Illness: 62-year-old female with history of mental retardation, was brought to the ED for evaluation of altered mental status change. Patient is unable to communicate at this time although she is alert during my exam and history is obtained from ED report and chart review below: "62-year-old female presents to the ED via EMS for evaluation of altered mental status. Patient lives at [facility]. Per the nurses report there the patient has not been eating for the last few days and stopped talking today. They state that the patient is altered as compared to baseline. On arrival the patient is alert. She occasionally answeres questions appropriately. She denies any pain. She has slurred speech and is difficult to understand. She is unable to provide any meaningful history." - Diagnosis (1) Hepatic encephalopathy (2) Elevated LFTs (3) Mental retardation (4) Hyperammonemia (5) Abnormal urinalysis - Inpatient Certification If this patient has been admitted as an Inpatient: I certify that the inpatient services were ordered in accordance with Medicare regulations governing the order. This includes certification that hospital inpatient services are reasonable and necessary and in the case of services not specified as inpatient-only under 42 CFR 419.22(n), that they are appropriately provided as inpatient services in accordance to with the 2-midnight benchmark under 43 CFR 412.3(e) Estimated Total Length of Stay (Days): 2 Plans for Post Hospital Care: Not yet determined [facility] - History History Provided By: Medical Record - Medical History Medical History: Medical History (Last Reviewed 06/03/18 @ 20:09 by MARGA Pérez) Altered mental status Anemia Apnea History of falling Hypothyroidism Surgical history unknown - Family History Family History: Family History (Last Updated 06/03/18 @ 18:14 by Nay Ralph) Other Unknown family medical history - Tobacco History Second Hand Smoke Exposure: No Tobacco Use In Past 30 Days: No Smoking Status: Never smoker - Alcohol History How Often Do You Have a Drink Containing Alcohol: Never - Substance Use History Substance History: No History of Abuse - Travel History Recent Travel in the [place] Within the Last 8 Weeks: No Recent Travel Out of the Country Within the Last 8 Weeks: No - Immunization History Tetanus Immunization: >5 Years Hx Influenza Vaccine This Season: Yes Medications and Allergies Active Medications: Active Medications Al Hydroxide/Mg Hydroxide (Milk Of Magnesia Liq) 30 ml PO Q12H PRN PRN Reason: Mild Constipation Bisacodyl (Dulcolax Supp) 10 mg RECTAL DAILY PRN PRN Reason: SEVERE CONSITIPATION Enalaprilat (Vasotec Inj) 2.5 mg IV.PUSH Q8H PRN PRN Reason: BP > 160/90 Last Admin: 06/04/18 13:41 Dose: 2.5 mg Ceftriaxone Sodium 1,000 mg/ (Sodium Chloride) 100 mls @ 200 mls/hr IV.SIG Q24H LENA Sodium Chloride (Ns Inj) 1,000 mls @ 100 mls/hr IV.CONT .Q10H [facility] Last Admin: 06/04/18 05:36 Dose: Not Given Lactulose (Lactulose Liq) 30 ml PO DAILY PRN PRN Reason: SEVERE CONSITIPATION Lactulose (Lactulose Liq) 30 ml PO BID [facility] Last Admin: 06/04/18 09:55 Dose: Not Given Sennosides (Senokot) 17.2 mg PO Q12H PRN PRN Reason: Moderate Constipation Sodium Chloride (Ns Flush) 2 ml IV.FLUSH PRN PRN PRN Reason: FLUSH AFTER USING IV ACCESS Allergies Allergy/AdvReac Type Severity Reaction Status Date / Time No Known Allergies Allergy Unverified 06/03/18 17:56 Home Medications Medication Instructions Recorded Confirmed Type cholecalciferol (vitamin D3) 1,000 unit PO DAILY 06/03/18 06/03/18 History [Vitamin D3] duloxetine [Cymbalta] 30 mg PO DAILY 06/03/18 06/03/18 History famotidine [Pepcid] 20 mg PO BID 06/03/18 06/03/18 History levothyroxine [Synthroid] 75 mcg PO DAILY 06/03/18 06/03/18 History lisinopril 20 mg PO DAILY 06/03/18 06/03/18 History lorazepam 0.5 mg PO DAILY 06/03/18 06/03/18 History potassium chloride 20 meq PO DAILY 06/03/18 06/03/18 History Exam Vital signs: Vital Signs 06/03/18 16:30 06/03/18 16:54 06/03/18 17:00 Temperature 97.9 F Pulse Rate 84 82 86 Respiratory Rate 20 18 Blood Pressure 173/104 H 123/88 Pulse Oximetry 94 L 99 98 06/04/18 01:20 06/04/18 04:00 06/04/18 08:00 Temperature 97.3 F L 97.2 F L 97.2 F L Pulse Rate 94 H 75 82 Respiratory Rate 18 16 20 Blood Pressure 138/84 143/67 H 174/82 H Pulse Oximetry 93 L 91 L 97 Intake & Output 06/03/18 06/04/18 06/04/18 18:59 06:59 18:59 Intake Total 0 / 0 Balance 0 / 0 Weight 54.431 kg 48.7 kg Intake: Oral 0 / 0 Other: # Voids 2 # Bowel Movements 0 Narrative: GENERAL: NAD SKIN: Warm and dry. HEAD: Normocephalic. EYES: No scleral icterus. No injection or drainage. NECK: Supple, trachea midline. No JVD or lymphadenopathy. CARDIOVASCULAR: Regular rate and rhythm without murmurs, gallops, or rubs. RESPIRATORY: Breath sounds equal bilaterally. No accessory muscle use. GASTROINTESTINAL: Abdomen soft, non-tender, nondistended. MUSCULOSKELETAL: No cyanosis, or edema. BACK: Nontender without obvious deformity. No CVA tenderness. Results - Labs CBC & Chem 7: 06/04/18 07:33 06/04/18 07:33 Labs: Laboratory Results - last 24 hr 06/03/18 06/03/18 06/03/18 17:00 17:10 17:10 WBC 7.2 RBC 4.70 Hgb 12.8 Hct 41.1 MCV 87.4 MCH 27.2 MCHC 31.1 L RDW 20.4 H Plt Count 116 L MPV 9.9 Prelim Diff (Auto) Slide review pending Neut % (Auto) 38.1 Lymph % (Auto) 50.0 H [place] % (Auto) 9.5 H Eos % (Auto) 1.8 Baso % (Auto) 0.6 Neut # (Auto) 2.7 Lymph # (Auto) 3.6 [place] # (Auto) 0.7 Eos # (Auto) 0.1 Baso # (Auto) 0.0 WBC Differential . Diff Scan Auto diff confirmed Differential Comment . Platelet Estimate Low L Platelet Morphology Normal Ovalocytes 1+ H Keratocytes Occ H PT 16.6 H INR 1.6 APTT 26.8 Sodium Potassium Chloride Carbon Dioxide Anion Gap BUN Creatinine Estimated GFR POC Glucose 73 Random Glucose Lactic Acid Calcium Total Bilirubin AST ALT Alkaline Phosphatase Ammonia Lactate Dehydrogenase Total Creatine Kinase CK-MB (CK-2) CK-MB (CK-2) % Troponin I Total Protein Albumin Urine Color Urine Clarity Urine pH Ur Specific [place] Urine Protein Urine Glucose (UA) Urine Ketones Urine Occult Blood Urine Nitrate Urine Bilirubin Urine Urobilinogen Ur Leukocyte Esterase Urine RBC Urine WBC Urine WBC Clumps Ur Squamous Epith Cells Urine Bacteria Micro UA Comment Urine Culture Comments 06/03/18 06/03/18 06/03/18 17:10 17:10 17:10 WBC RBC Hgb Hct MCV MCH MCHC RDW Plt Count MPV Prelim Diff (Auto) Neut % (Auto) Lymph % (Auto) [place] % (Auto) Eos % (Auto) Baso % (Auto) Neut # (Auto) Lymph # (Auto) [place] # (Auto) Eos # (Auto) Baso # (Auto) WBC Differential Diff Scan Differential Comment Platelet Estimate Platelet Morphology Ovalocytes Keratocytes PT INR APTT Sodium 139 Potassium 5.0 Chloride 106 Carbon Dioxide 18.0 L Anion Gap 15 BUN 36 H Creatinine 1.38 H Estimated GFR 47 L POC Glucose Random Glucose 87 Lactic Acid 3.4 H Calcium 8.1 L Total Bilirubin 1.3 H AST 352 H ALT 411 H Alkaline Phosphatase 196 H Ammonia 41 H Lactate Dehydrogenase Total Creatine Kinase 337 H CK-MB (CK-2) 4.4 H CK-MB (CK-2) % 1.3 Troponin I Less than 0.02 L Total Protein 7.7 Albumin 3.6 Urine Color Urine Clarity Urine pH Ur Specific [place] Urine Protein Urine Glucose (UA) Urine Ketones Urine Occult Blood Urine Nitrate Urine Bilirubin Urine Urobilinogen Ur Leukocyte Esterase Urine RBC Urine WBC Urine WBC Clumps Ur Squamous Epith Cells Urine Bacteria Micro UA Comment Urine Culture Comments 06/03/18 06/03/18 06/03/18 17:10 17:12 20:20 WBC RBC Hgb Hct MCV MCH MCHC RDW Plt Count MPV Prelim Diff (Auto) Neut % (Auto) Lymph % (Auto) [place] % (Auto) Eos % (Auto) Baso % (Auto) Neut # (Auto) Lymph # (Auto) [place] # (Auto) Eos # (Auto) Baso # (Auto) WBC Differential Diff Scan Differential Comment Platelet Estimate Platelet Morphology Ovalocytes Keratocytes PT INR APTT Sodium Potassium Chloride Carbon Dioxide Anion Gap BUN Creatinine Estimated GFR POC Glucose Random Glucose Lactic Acid 3.6 H Calcium Total Bilirubin AST ALT Alkaline Phosphatase Ammonia Lactate Dehydrogenase 691 H Total Creatine Kinase CK-MB (CK-2) CK-MB (CK-2) % Troponin I Total Protein Albumin Urine Color Yellow Urine Clarity Cloudy H Urine pH 5.0 Ur Specific [place] 1.012 Urine Protein 30 H Urine Glucose (UA) Negative Urine Ketones Negative Urine Occult Blood Moderate H Urine Nitrate Negative Urine Bilirubin Negative Urine Urobilinogen 4 or greater Ur Leukocyte Esterase Moderate H Urine RBC 2 Urine WBC 16 H Urine WBC Clumps Few H Ur Squamous Epith Cells 1 Urine Bacteria Many H Micro UA Comment Cath-culture ind Urine Culture Comments Cath-cult indicated 06/03/18 06/04/18 06/04/18 23:40 07:33 07:33 WBC 6.1 RBC 4.82 Hgb 13.1 Hct 43.3 MCV 89.8 MCH 27.2 MCHC 30.2 L RDW 20.4 H Plt Count 95 L MPV 9.9 Prelim Diff (Auto) Slide review pending Neut % (Auto) 37.0 Lymph % (Auto) 49.4 H [place] % (Auto) 10.2 H Eos % (Auto) 3.0 Baso % (Auto) 0.4 Neut # (Auto) 2.3 Lymph # (Auto) 3.0 [place] # (Auto) 0.6 Eos # (Auto) 0.2 Baso # (Auto) 0.0 WBC Differential . Diff Scan Auto diff confirmed Differential Comment . Platelet Estimate Low L Platelet Morphology Normal Ovalocytes 1+ H Keratocytes PT 17.4 H INR 1.7 APTT Sodium Potassium Chloride Carbon Dioxide Anion Gap BUN Creatinine Estimated GFR POC Glucose Random Glucose Lactic Acid Calcium Total Bilirubin AST ALT Alkaline Phosphatase Ammonia Lactate Dehydrogenase Cancelled Total Creatine Kinase Cancelled CK-MB (CK-2) CK-MB (CK-2) % Troponin I Cancelled Total Protein Albumin Urine Color Urine Clarity Urine pH Ur Specific [place] Urine Protein Urine Glucose (UA) Urine Ketones Urine Occult Blood Urine Nitrate Urine Bilirubin Urine Urobilinogen Ur Leukocyte Esterase Urine RBC Urine WBC Urine WBC Clumps Ur Squamous Epith Cells Urine Bacteria Micro UA Comment Urine Culture Comments 06/04/18 06/04/18 06/04/18 07:33 11:07 12:55 WBC RBC Hgb Hct MCV MCH MCHC RDW Plt Count MPV Prelim Diff (Auto) Neut % (Auto) Lymph % (Auto) [place] % (Auto) Eos % (Auto) Baso % (Auto) Neut # (Auto) Lymph # (Auto) [place] # (Auto) Eos # (Auto) Baso # (Auto) WBC Differential Diff Scan Differential Comment Platelet Estimate Platelet Morphology Ovalocytes Keratocytes PT INR APTT Sodium 141 Potassium 4.4 Chloride 110 H Carbon Dioxide 15.8 L Anion Gap 15 BUN 31 H Creatinine 1.12 H Estimated GFR 59 L POC Glucose 66 L 85 Random Glucose 54 L Lactic Acid Calcium 8.5 Total Bilirubin 1.2 H AST 251 H ALT 333 H Alkaline Phosphatase 173 H Ammonia Lactate Dehydrogenase Total Creatine Kinase 226 H CK-MB (CK-2) 3.4 CK-MB (CK-2) % 1.5 Troponin I Less than 0.02 L Total Protein 6.8 D Albumin 2.9 L D Urine Color Urine Clarity Urine pH Ur Specific [place] Urine Protein Urine Glucose (UA) Urine Ketones Urine Occult Blood Urine Nitrate Urine Bilirubin Urine Urobilinogen Ur Leukocyte Esterase Urine RBC Urine WBC Urine WBC Clumps Ur Squamous Epith Cells Urine Bacteria Micro UA Comment Urine Culture Comments - Imaging Impressions Chest X-Ray 06/03/18 17:16 CONCLUSION: Cardiomegaly with mild basilar airspace disease and small effusions. Head CT 06/03/18 17:16 CONCLUSION: 1. No acute intracranial abnormality. The sella is enlarged but stable since 2012. Gallbladder Ultrasound 06/03/18 19:21 CONCLUSION: 1. Gallstone with gallbladder sludge and mild gallbladder wall thickening which may be related to mild ascites. No biliary ductal dilatation. 2. Echogenic right kidney characteristic of medical renal disease. Caprini VTE Risk Assessment Caprini VTE Risk Assessment: Moderate/High Risk (score >= 2) Caprini Risk Assessment Model: Point Value = 1 Point Value = 2 Point Value = 3 Point Value = 5 Age 41-60 Minor surgery BMI > 25 kg/m2 Swollen legs Varicose veins or History of unexplained or recurrent spontaneous Oral contraceptives or hormone replacement Sepsis (< 1 month) Serious lung disease, including pneumonia (< 1 month) Abnormal pulmonary function Acute myocardial infarction Congestive heart failure (< 1 month) History of inflammatory bowel disease Medical patient at bed rest Age 61-74 Arthroscopic surgery Major open surgery (> 45 min) Laparoscopic surgery (> 45 min) Malignancy Confined to bed (> 72 hours) Immobilizing plaster cast Central venous access Age >= 75 History of VTE Family history of VTE Factor V Leiden Prothrombin [id number] Lupus anticoagulant Anticardiolipin antibodies Elevated serum homocysteine Heparin-induced thrombocytopenia Other congenital or acquired thrombophilia Stroke (< 1 month) Elective arthroplasty Hip, pelvis, or leg fracture Acute spinal cord injury (< 1 month) Prophylaxis Regimen: Total Risk Factor Score Risk Level Prophylaxis Regimen 0-1 Low Early ambulation 2 Moderate Order ONE of the following: *Sequential Compression Device (SCD) *Heparin 5000 units SQ BID 3-4 Higher Order ONE of the following medications: *Heparin 5000 units SQ TID *Enoxaparin/Lovenox 40 mg SQ daily (WT < 150 kg, CrCl > 30 mL/min) *Enoxaparin/Lovenox 30 mg SQ daily (WT < 150 kg, CrCl > 10-29 mL/min) *Enoxaparin/Lovenox 30 mg SQ BID (WT < 150 kg, CrCl > 30 mL/min) AND/OR *Sequential Compression Device (SCD) 5 or more Highest Order ONE of the following medications: *Heparin 5000 units SQ TID (Preferred with Epidurals) *Enoxaparin/Lovenox 40 mg SQ daily (WT < 150 kg, CrCl > 30 mL/min) *Enoxaparin/Lovenox 30 mg SQ daily (WT < 150 kg, CrCl > 10-29 mL/min) *Enoxaparin/Lovenox 30 mg SQ BID (WT < 150 kg, CrCl > 30 mL/min) AND *Sequential Compression Device (SCD) Assessment and Plan - Assessment (1) Hepatic encephalopathy Code(s): K72.90 - Hepatic failure, unspecified without coma Status: Acute (2) Elevated LFTs Code(s): R94.5 - Abnormal results of liver function studies Status: Acute (3) Mental retardation Code(s): F79 - Unspecified intellectual disabilities Status: Acute (4) Hyperammonemia Code(s): E72.20 - Disorder of urea cycle metabolism, unspecified Status: Acute (5) Abnormal urinalysis Code(s): R82.90 - Unspecified abnormal findings in urine Status: Acute - Plan 62-year-old female with Hepatic encephalopathy with hyperammonemia Head CT noted and reviewed by me without any intracranial abnormality Ultrasound gallbladder noted with gallbladder sludge and mild gallbladder wall thickening which may be related to mild ascites. No biliary ductal dilatation Treated with lactulose twice daily Appreciate input from gastroenterology who has been consulted Monitor LFTs as well as hepatitis panel and avoid all hepatotoxins Abnormal UA Currently on IV Rocephin pending urine culture Hypertension Labile BP Resume outpatient medication including lisinopril and start Vasotec as needed History of hypothyroidism and other chronic medical conditions Resume outpatient medications DVT prophylaxis: Bilateral SCDs
--- NOTE | 2018-06-04 19:33 | ECG ---
Date Performed: 06/03/2018 Time Performed: 21:25:11 PTAGE: 62 years EKG: Sinus rhythm POSSIBLE LEFT ATRIAL ENLARGEMENT POSSIBLE RIGHT VENTRICULAR CONDUCTION DELAY POSSIBLE ANTERIOR MYOCA RDIAL INFARCTION DIFFUSE NONSPECIFIC T-WAVE CHANGES ABNORMAL ECG PREVIOUS TRACING : 06/03/2018 16.23 Since the most recent tracing,there has been no significant serial change DOCTOR: Mini Ferguson Interpretating Date/Time 06/04/2018 19:32:50
--- NOTE | 2018-06-04 19:33 | ECG ---
Date Performed: 06/03/2018 Time Performed: 16:23:48 PTAGE: 62 years EKG: Sinus rhythm POSSIBLE LEFT ATRIAL ENLARGEMENT INDETERMINATE AXIS POSSIBLE RIGHT VENTRICULAR CONDUCTION DELAY POSS IBLE ANTERIOR MYOCARDIAL INFARCTION DIFFUSE NON-SPECIFIC T-WAVE CHANGES ABNORMAL ECG PREVIOUS TRACING :02/20/2018 @14.17 This tracing cannot be compared to the prior tracing as ther e is too much artifact on the previous tracing, however the previously noted marked bradycardia is no longer evident DOCTOR: Mini Ferguson Interpretating Date/Time 06/04/2018 19:31:51
[2018-06-04] MEDS: Famotidine 20 MG Tablet PO SCH (21:20)
[2018-06-05] MEDS: Levothyroxine 75 MCG Tablet PO SCH (05:39)
[2018-06-05] MEDS: Sod Chloride 0.9% Inj 1,000 ML IV.CONT SCH ×3 (05:40→17:51)
[2018-06-05] MEDS: Lisinopril 20 MG Tablet PO SCH (09:08)
[2018-06-05] MEDS: Famotidine 20 MG Tablet PO SCH ×2 (09:08→20:17)
--- NOTE | 2018-06-05 12:27 | P.PN ---
Subjective Interval history: Follow-up metabolic, hepatic encephalopathy with him anemia June 05, 2018-patient seen and examined, no change and stable. Currently afebrile. Physical Exam Vital signs: Vital Signs 06/04/18 16:00 06/04/18 19:45 06/04/18 20:00 Temperature 97.4 F L 99.5 F Pulse Rate 95 H 95 H 92 H Respiratory Rate 20 Blood Pressure 159/84 H 166/100 H Pulse Oximetry 97 92 L 06/04/18 23:48 06/05/18 03:45 06/05/18 08:00 Temperature 97.1 F L Pulse Rate 88 88 84 Respiratory Rate 20 Blood Pressure 177/81 H Pulse Oximetry Intake & Output 06/04/18 06/05/18 06/05/18 18:59 06:59 18:59 Intake Total 360 / 360 1720 / 1720 Output Total 300 / 300 Balance 360 / 360 1420 / 1420 Weight 50.1 kg Intake: IV 0 / 0 1000 / 1000 NS Inj 1,000 ML @ 100 mls/hr IV 0 / 0 1000 / 1000 .CONT .Q10H LENA Rx#:[id number] Oral 360 / 360 720 / 720 Output: Urine 250 / 250 Stool 50 / 50 Other: # Incontinent Voids 2 Date of Last Bowel Movement 06/04/18 06/05/18 # Bowel Movements 1 Narrative: GENERAL: NAD SKIN: Warm and dry. HEAD: Normocephalic. EYES: No scleral icterus. No injection or drainage. NECK: Supple, trachea midline. No JVD or lymphadenopathy. CARDIOVASCULAR: Regular rate and rhythm without murmurs, gallops, or rubs. RESPIRATORY: Breath sounds equal bilaterally. No accessory muscle use. GASTROINTESTINAL: Abdomen soft, non-tender, nondistended. MUSCULOSKELETAL: No cyanosis, or edema. BACK: Nontender without obvious deformity. No CVA tenderness. - Urinary Catheter Management Straight Cath placed during this visit: yes, but has since been removed by the nurse Reason for continuing: Not indwelling catheter Insertion date: 06/05/18 Insertion time: 02:00 Removal date: 06/05/18 Removal time: 02:15 Results - Labs CBC & Chem 7: 06/04/18 07:33 06/04/18 07:33 Laboratory Results - last 24 hr 06/03/18 06/04/18 17:12 12:55 POC Glucose 85 Urine Color Yellow Urine Clarity Cloudy H Urine pH 5.0 Ur Specific [place] 1.012 Urine Protein 30 H Urine Glucose (UA) Negative Urine Ketones Negative Urine Occult Blood Moderate H Urine Nitrate Negative Urine Bilirubin Negative Urine Urobilinogen 4 or greater Ur Leukocyte Esterase Moderate H Urine RBC 2 Urine WBC 16 H Urine WBC Clumps Few H Ur Squamous Epith Cells 1 Urine Bacteria Many H Micro UA Comment Cath-culture ind Urine Culture Comments Cath-cult indicated Microbiology 06/03/18 17:10 Blood - Line Aerobic Blood Culture - Preliminary No growth in 2 days 06/03/18 17:10 Blood - Line Anaerobic Blood Culture - Preliminary No growth in 2 days 06/03/18 17:10 Blood - Line Aerobic Blood Culture - Preliminary No growth in 2 days 06/03/18 17:10 Blood - Line Anaerobic Blood Culture - Preliminary No growth in 2 days 06/03/18 17:12 Catheterized Urine Urine Culture - Final Escherichia coli Assessment and Plan - Assessment (1) Hepatic encephalopathy Code(s): K72.90 - Hepatic failure, unspecified without coma Status: Acute (2) Elevated LFTs Code(s): R94.5 - Abnormal results of liver function studies Status: Acute (3) Mental retardation Code(s): F79 - Unspecified intellectual disabilities Status: Acute (4) Hyperammonemia Code(s): E72.20 - Disorder of urea cycle metabolism, unspecified Status: Acute (5) Abnormal urinalysis Code(s): R82.90 - Unspecified abnormal findings in urine Status: Acute (6) Acute UTI Code(s): N39.0 - Urinary tract infection, site not specified Status: Acute - Plan 62-year-old female with Hepatic encephalopathy with hyperammonemia Head CT noted and reviewed by me without any intracranial abnormality Ultrasound gallbladder noted with gallbladder sludge and mild gallbladder wall thickening which may be related to mild ascites. No biliary ductal dilatation Treated with lactulose twice daily Appreciate input from gastroenterology who has been consulted Monitor LFTs as well as hepatitis panel and avoid all hepatotoxins Urinary tract infection-E. coli Currently on IV Rocephin pending final urine culture Hypertension Labile BP Start Procardia and continue outpatient medication including lisinopril and Vasotec as needed History of hypothyroidism and other chronic medical conditions Continue outpatient medications DVT prophylaxis: Bilateral SCDs
[2018-06-05] MEDS: Potassium Chloride 20 MEQ Pwd Pkt PO SCH (13:28)
--- NOTE | 2018-06-05 14:12 | P.PNGI ---
Subjective Interval history: Poor historian and fairly drowsy Mumbling conversation but does state not hungry Physical Exam Vital signs: Vital Signs 06/04/18 16:00 06/04/18 19:45 06/04/18 20:00 Temperature 97.4 F L 99.5 F Pulse Rate 95 H 95 H 92 H Respiratory Rate 20 Blood Pressure 159/84 H 166/100 H Pulse Oximetry 97 92 L 06/04/18 23:48 06/05/18 03:45 06/05/18 08:00 Temperature 97.1 F L Pulse Rate 88 88 84 Respiratory Rate 20 Blood Pressure 177/81 H Pulse Oximetry Intake & Output 06/04/18 06/05/18 06/05/18 18:59 06:59 18:59 Intake Total 360 / 360 1720 / 1720 Output Total 300 / 300 Balance 360 / 360 1420 / 1420 Weight 50.1 kg Intake: IV 0 / 0 1000 / 1000 NS Inj 1,000 ML @ 100 mls/hr IV 0 / 0 1000 / 1000 .CONT .Q10H LENA Rx#:[id number] Oral 360 / 360 720 / 720 Output: Urine 250 / 250 Stool 50 / 50 Other: # Incontinent Voids 2 Date of Last Bowel Movement 06/04/18 06/05/18 # Bowel Movements 1 - Constitutional mild distress - Routine HEENT Exam Head: Present: normocephalic, atraumatic Eye: Present: EOMI ENT: Present: mucous membranes moist - Routine Neck Exam Present: supple - Routine Respiratory Exam Present: distant breath sounds (But no obvious rhonchi or wheezing) - Routine Cardiovascular Exam Present: RRR - Routine Abdominal Exam Present: soft - Routine Skin Exam Present: intact, dry - Routine Neurological Exam Present: alert (Drowsy but does respond to verbal stimuli, speech mumbled) - Detailed Neurological Exam: Coma Scale Verbal Response: Words (Mumbles) - Routine Psychiatric Exam Present: normal affect - Urinary Catheter Management Straight Cath placed during this visit: yes, but has since been removed by the nurse Reason for continuing: Not indwelling catheter Insertion date: 06/05/18 Insertion time: 02:00 Removal date: 06/05/18 Removal time: 02:15 Results - Labs CBC & Chem 7: 06/04/18 07:33 06/04/18 07:33 Laboratory Results - last 24 hr 06/03/18 17:12 Urine Color Yellow Urine Clarity Cloudy H Urine pH 5.0 Ur Specific [place] 1.012 Urine Protein 30 H Urine Glucose (UA) Negative Urine Ketones Negative Urine Occult Blood Moderate H Urine Nitrate Negative Urine Bilirubin Negative Urine Urobilinogen 4 or greater Ur Leukocyte Esterase Moderate H Urine RBC 2 Urine WBC 16 H Urine WBC Clumps Few H Ur Squamous Epith Cells 1 Urine Bacteria Many H Micro UA Comment Cath-culture ind Urine Culture Comments Cath-cult indicated Microbiology 06/03/18 17:10 Blood - Line Aerobic Blood Culture - Preliminary No growth in 2 days 06/03/18 17:10 Blood - Line Anaerobic Blood Culture - Preliminary No growth in 2 days 06/03/18 17:10 Blood - Line Aerobic Blood Culture - Preliminary No growth in 2 days 06/03/18 17:10 Blood - Line Anaerobic Blood Culture - Preliminary No growth in 2 days 06/03/18 17:12 Catheterized Urine Urine Culture - Final Escherichia coli Assessment and Plan (1) Elevated LFTs Status: Acute Code(s): R94.5 - Abnormal results of liver function studies (2) Elevated ferritin Status: Acute Code(s): R79.89 - Other specified abnormal findings of blood chemistry - Plan Assessment: - Elevated LFTs with hyperammonemia Previously seen by our service during her last hospital admission in January and underwent liver work up. At that time LFTs were over 1000 and pt was noted to have hypotensive episodes and therefore it was said to be likely secondary to shocked liver. Previous liver work up in January: CONNIE, AMA, ASMA, celiac panel, hepatitis panel negative Ceruloplasmin-30 AAT-169 Iron-50 TIBC-182 % sat-27.5 Ferritin-2899 MRCP (February 23) No intra-or extrahepatic biliary ductal dilatation. Hepatic cysts. Bilateral pleural effusions. This admission: US gallbladder (06/03) Gallstone with gallbladder sludge and mild gallbladder wall thickening which may be related to mild ascites. No biliary ductal dilatation. (06/03) AST-352 ALT-411 Alk phos-196 T bili-1.3 ? cirrhosis- thrombocytopenia- plts 116 coagulopathy- INR 1.6 but no hypoalbuminemia - AMS- per NH staff pt has not been eating for a few days and stopped talking yesterday- baseline mental retardation with underlying dementia however has been eating and minimally communicating? Pt had previous PEG during last admission, since been removed 06/05/2018 patient is resting in the bed drowsy but does arouse to verbal conversation mumbling words but states she is not hungry and does not not appear to be eating. Current hemoglobin 13.1. Mild upper abdominal pain. Poor historian Plan: Diet, regular food but patient is not eating encourage p.o. intake Continue to monitor patient's labs including LFTs and ammonia level, hemoglobin/ hematocrit Avoid hepatotoxins Monitor LFTs Pepcid Lactulose BID Bowel regimen Anti-emetics Pt has been seen per myself and Dr. Guzman, this note written on her behalf
[2018-06-06] MEDS: Sod Chloride 0.9% Inj 1,000 ML IV.CONT SCH (01:35)
[2018-06-06] MEDS: Levothyroxine 75 MCG Tablet PO SCH (06:10)
[2018-06-06] MEDS ORDERED: Dextrose 50% in Water 50 ML Vial IV.PUSH PRN (07:54)
[2018-06-06] MEDS: Potassium Chloride 20 MEQ Pwd Pkt PO SCH (08:17)
[2018-06-06] MEDS: Lisinopril 20 MG Tablet PO SCH (08:17)
[2018-06-06] MEDS: Famotidine 20 MG Tablet PO SCH (08:18)
[2018-06-06 09:01] LABS: Albumin 2.8 g/dL (3.4-5.0); Anion Gap 16 meq/L (5-15); Aspartate Aminotransferase 162 U/L (15-37); Blood Urea Nitrogen 26 mg/dL (7-18); Calcium 8.1 mg/dL (8.5-10.1); Carbon Dioxide 13.1 meq/L (21.0-32.0); Chloride 113 meq/L (98-107); Glomerular Filtration Rate 57 mL/min (>89); Glucose,Random 56 mg/dL (74-106); Potassium 3.8 meq/L (3.5-5.1); Sodium 142 meq/L (136-145)
[2018-06-06 09:02] LABS: Alanine Aminotransferase 258 U/L (10-53)
[2018-06-06 09:04] LABS: Alkaline Phosphatase 198 U/L (45-117); Total Protein 6.4 g/dL (6.4-8.2)
[2018-06-06 11:19] LABS: Baso % (Auto) 0.6 % (0.0-2.0); Eos # (Auto) 0.2 th/mm3 (0.0-0.4); Eos % (Auto) 3.2 % (0.0-4.0); Hematocrit 39.8 % (35.0-46.0); Hemoglobin 12.3 gm/dL (11.6-15.3); Lymph # (Auto) 2.5 th/mm3 (1.0-4.8); Lymph % (Auto) 34.2 % (9.0-44.0); Mean Corpuscular Hemoglobin 26.7 pg (27.0-34.0); Mean Corpuscular Volume 86.4 fL (80.0-100.0); Mean Platelet Volume 9.1 fL (7.0-11.0); Mono # (Auto) 0.5 th/mm3 (0.0-0.9); Mono % (Auto) 7.1 % (0.0-8.0); Neut # (Auto) 3.9 th/mm3 (1.8-7.7); Neut % (Auto) 54.9 % (16.0-70.0); Platelet Count 124 th/mm3 (150-450); Red Blood Count 4.61 mil/mm3 (4.00-5.30); Red Cell Distribution Width 20.3 % (11.6-17.2); White Blood Count 7.2 th/mm3 (4.0-11.0)
[2018-06-06 11:34] LABS: Mean Corpuscular HGB Conc 30.9 % (32.0-36.0)
--- NOTE | 2018-06-06 13:17 | P.PN ---
Subjective Interval history: Follow-up metabolic, hepatic encephalopathy with him anemia June 05, 2018-patient seen and examined, no change and stable. Currently afebrile. June 06, 2018-patient seen and examined, hyperammonemia resolved, patient alert but mumbling and does not make sense. Vital stable Physical Exam Vital signs: Vital Signs 06/05/18 16:00 06/05/18 20:00 06/06/18 00:00 Temperature 97.1 F L 97.3 F L 97 F L Pulse Rate 88 81 81 Respiratory Rate 20 18 20 Blood Pressure 171/99 H 163/77 H 176/80 H Pulse Oximetry 94 L 95 06/06/18 04:00 06/06/18 04:10 06/06/18 08:00 Temperature 97.1 F L 97.1 F L Pulse Rate 84 86 83 Respiratory Rate 20 22 Blood Pressure 152/87 H 163/72 H Pulse Oximetry 94 L 95 Intake & Output 06/05/18 06/06/18 06/06/18 18:59 06:59 18:59 Intake Total 2240 / 2240 720 / 720 Balance 2240 / 2240 720 / 720 Weight 51.9 kg Intake: IV 1999 NS Inj 1,000 ML @ 100 mls/hr IV 1999 .CONT .Q10H LENA Rx#:[id number] Oral 240 / 240 720 / 720 Other: # Voids 1 2 Date of Last Bowel Movement 06/05/18 # Bowel Movements 1 2 Narrative: GENERAL: NAD SKIN: Warm and dry. HEAD: Normocephalic. EYES: No scleral icterus. No injection or drainage. NECK: Supple, trachea midline. No JVD or lymphadenopathy. CARDIOVASCULAR: Regular rate and rhythm without murmurs, gallops, or rubs. RESPIRATORY: Breath sounds equal bilaterally. No accessory muscle use. GASTROINTESTINAL: Abdomen soft, non-tender, nondistended. MUSCULOSKELETAL: No cyanosis, or edema. BACK: Nontender without obvious deformity. No CVA tenderness. - Urinary Catheter Management Straight Cath placed during this visit: yes, but has since been removed by the nurse Reason for continuing: Not indwelling catheter Insertion date: 06/05/18 Insertion time: 02:00 Removal date: 06/05/18 Removal time: 02:15 Results - Labs CBC & Chem 7: 06/06/18 10:30 06/06/18 08:02 Laboratory Results - last 24 hr 06/06/18 06/06/18 06/06/18 07:42 08:02 08:02 WBC RBC Hgb Hct MCV MCH MCHC RDW Plt Count MPV Prelim Diff (Auto) Neut % (Auto) Lymph % (Auto) [place] % (Auto) Eos % (Auto) Baso % (Auto) Neut # (Auto) Lymph # (Auto) [place] # (Auto) Eos # (Auto) Baso # (Auto) WBC Differential Diff Scan Differential Comment Sodium 142 Potassium 3.8 Chloride 113 H Carbon Dioxide 13.1 L Anion Gap 16 H BUN 26 H Creatinine 1.17 H Estimated GFR 57 L POC Glucose 54 L Random Glucose 56 L Calcium 8.1 L Total Bilirubin 1.2 H AST 162 H ALT 258 H Alkaline Phosphatase 198 H Ammonia 27 Total Protein 6.4 Albumin 2.8 L 06/06/18 06/06/18 10:30 11:18 WBC 7.2 RBC 4.61 Hgb 12.3 Hct 39.8 MCV 86.4 MCH 26.7 L MCHC 30.9 L RDW 20.3 H Plt Count 124 L D MPV 9.1 Prelim Diff (Auto) Slide review pending Neut % (Auto) 54.9 Lymph % (Auto) 34.2 [place] % (Auto) 7.1 Eos % (Auto) 3.2 Baso % (Auto) 0.6 Neut # (Auto) 3.9 Lymph # (Auto) 2.5 [place] # (Auto) 0.5 Eos # (Auto) 0.2 Baso # (Auto) 0.0 WBC Differential . Diff Scan Auto diff confirmed Differential Comment . Sodium Potassium Chloride Carbon Dioxide Anion Gap BUN Creatinine Estimated GFR POC Glucose 117 H Random Glucose Calcium Total Bilirubin AST ALT Alkaline Phosphatase Ammonia Total Protein Albumin Microbiology 06/03/18 17:10 Blood - Line Aerobic Blood Culture - Preliminary No growth in 3 days 06/03/18 17:10 Blood - Line Anaerobic Blood Culture - Preliminary No growth in 3 days 06/03/18 17:10 Blood - Line Aerobic Blood Culture - Preliminary No growth in 3 days 06/03/18 17:10 Blood - Line Anaerobic Blood Culture - Preliminary No growth in 3 days - Procedures None Assessment and Plan - Assessment (1) Hepatic encephalopathy Code(s): K72.90 - Hepatic failure, unspecified without coma Status: Resolved (2) Elevated LFTs Code(s): R94.5 - Abnormal results of liver function studies Status: Acute (3) Mental retardation Code(s): F79 - Unspecified intellectual disabilities Status: Chronic (4) Hyperammonemia Code(s): E72.20 - Disorder of urea cycle metabolism, unspecified Status: Resolved (5) Acute UTI Code(s): N39.0 - Urinary tract infection, site not specified Status: Acute - Plan 62-year-old female with Hepatic encephalopathy with hyperammonemia-resolved Head CT noted and reviewed by me without any intracranial abnormality Ultrasound gallbladder noted with gallbladder sludge and mild gallbladder wall thickening which may be related to mild ascites. No biliary ductal dilatation Treated with lactulose twice daily Appreciate input from gastroenterology who has been consulted Monitor LFTs as well as hepatitis panel and avoid all hepatotoxins Urinary tract infection-E. coli Currently on IV Rocephin, with switched to p.o. Cipro 500 mg twice daily 5 more days Hypertension Continue Procardia and continue outpatient medication including lisinopril and Vasotec as needed History of hypothyroidism and other chronic medical conditions Continue outpatient medications DVT prophylaxis: Bilateral SCDs
--- NOTE | 2018-06-06 13:24 | P.DS ---
Date of admission: 06/03/18 22:56 Primary care physician: UNKNOWN Brief History from admission: 62-year-old female with history of mental retardation, was brought to the ED for evaluation of altered mental status change. Patient is unable to communicate at this time although she is alert during my exam and history is obtained from ED report and chart review below: "62-year-old female presents to the ED via EMS for evaluation of altered mental status. Patient lives at [facility]. Per the nurses report there the patient has not been eating for the last few days and stopped talking today. They state that the patient is altered as compared to baseline. On arrival the patient is alert. She denies any pain. She has slurred speech and is difficult to understand. She is unable to provide any meaningful history." DS: Diagnosis - Discharge Diagnosis (1) Hepatic encephalopathy Status: Resolved (2) Elevated LFTs Status: Acute (3) Mental retardation Status: Chronic (4) Hyperammonemia Status: Resolved (5) Acute UTI Status: Acute DS: Summary Hospital Course: while in the Hospital, patient was treated for: Hepatic encephalopathy with hyperammonemia-resolved Head CT noted and reviewed by me without any intracranial abnormality Ultrasound gallbladder noted with gallbladder sludge and mild gallbladder wall thickening which may be related to mild ascites. No biliary ductal dilatation Treated with lactulose twice daily Appreciated input from gastroenterology who has been consulted Monitor LFTs as well as hepatitis panel and avoid all hepatotoxins Urinary tract infection-E. coli She was treated with IV Rocephin, with switched to p.o. Cipro 500 mg twice daily 5 more days Hypertension She was treated with Procardia and continue outpatient medication including lisinopril and Vasotec as needed History of hypothyroidism and other chronic medical conditions She was treated with outpatient medications DVT prophylaxis: Bilateral SCDs - Time Spent with Patient Total time spent providing and/or coordinating discharge services: Greater than 30 minutes Exam Vital signs: Vital Signs 06/05/18 16:00 06/05/18 20:00 06/06/18 00:00 Temperature 97.1 F L 97.3 F L 97 F L Pulse Rate 88 81 81 Respiratory Rate 20 18 20 Blood Pressure 171/99 H 163/77 H 176/80 H Pulse Oximetry 94 L 95 06/06/18 04:00 06/06/18 04:10 06/06/18 08:00 Temperature 97.1 F L 97.1 F L Pulse Rate 84 86 83 Respiratory Rate 20 22 Blood Pressure 152/87 H 163/72 H Pulse Oximetry 94 L 95 Intake & Output 06/05/18 06/06/18 06/06/18 18:59 06:59 18:59 Intake Total 2240 / 2240 720 / 720 Balance 2240 / 2240 720 / 720 Weight 51.9 kg Intake: IV 1999 NS Inj 1,000 ML @ 100 mls/hr IV 1999 .CONT .Q10H LENA Rx#:[id number] Oral 240 / 240 720 / 720 Other: # Voids 1 2 Date of Last Bowel Movement 06/05/18 # Bowel Movements 1 2 Results Procedures completed during hospitalization: None Labs on day of discharge: Labs from last 24 hours 06/06/18 06/06/18 06/06/18 11:18 10:30 08:02 WBC 7.2 RBC 4.61 Hgb 12.3 Hct 39.8 MCV 86.4 MCH 26.7 L MCHC 30.9 L RDW 20.3 H Plt Count 124 L D MPV 9.1 Prelim Diff (Auto) Slide review pending Neut % (Auto) 54.9 Lymph % (Auto) 34.2 [place] % (Auto) 7.1 Eos % (Auto) 3.2 Baso % (Auto) 0.6 Neut # (Auto) 3.9 Lymph # (Auto) 2.5 [place] # (Auto) 0.5 Eos # (Auto) 0.2 Baso # (Auto) 0.0 WBC Differential . Diff Scan Auto diff confirmed Differential Comment . Sodium Potassium Chloride Carbon Dioxide Anion Gap BUN Creatinine Estimated GFR POC Glucose 117 H Random Glucose Calcium Total Bilirubin AST ALT Alkaline Phosphatase Ammonia 27 Total Protein Albumin 06/06/18 06/06/18 08:02 07:42 WBC RBC Hgb Hct MCV MCH MCHC RDW Plt Count MPV Prelim Diff (Auto) Neut % (Auto) Lymph % (Auto) [place] % (Auto) Eos % (Auto) Baso % (Auto) Neut # (Auto) Lymph # (Auto) [place] # (Auto) Eos # (Auto) Baso # (Auto) WBC Differential Diff Scan Differential Comment Sodium 142 Potassium 3.8 Chloride 113 H Carbon Dioxide 13.1 L Anion Gap 16 H BUN 26 H Creatinine 1.17 H Estimated GFR 57 L POC Glucose 54 L Random Glucose 56 L Calcium 8.1 L Total Bilirubin 1.2 H AST 162 H ALT 258 H Alkaline Phosphatase 198 H Ammonia Total Protein 6.4 Albumin 2.8 L Preliminary micro results at discharge 06/03/18 17:10 Aerobic Blood Culture - Preliminary Blood - Line No growth in 3 days Anaerobic Blood Culture - Preliminary No growth in 3 days 06/03/18 17:10 Aerobic Blood Culture - Preliminary Blood - Line No growth in 3 days Anaerobic Blood Culture - Preliminary No growth in 3 days - Impressions ITS Impressions Chest X-Ray 06/03/18 17:16 CONCLUSION: Cardiomegaly with mild basilar airspace disease and small effusions. Head CT 06/03/18 17:16 CONCLUSION: 1. No acute intracranial abnormality. The sella is enlarged but stable since 2012. Gallbladder Ultrasound 06/03/18 19:21 CONCLUSION: 1. Gallstone with gallbladder sludge and mild gallbladder wall thickening which may be related to mild ascites. No biliary ductal dilatation. 2. Echogenic right kidney characteristic of medical renal disease. Discharge Plan - Discharge Disposition Patient Disposition: Discharge to SNF - Discharge Condition Condition: Fair - Discharge Order Discharge Orders: Discharge Order (Routine); Ordered 06/06/18 Ordered By: Dagoberto Parra - Physicians Team Primary Care Provider: UNKNOWN, Attending Provider: Dagoberto Parra Other Providers: Chanel Guzman MD ; [facility],[place]
--- NOTE | 2018-06-06 16:05 | P.PNGI ---
Subjective Interval history: Patient is more alert today speech is slurred which is normal for her Denies any abdominal pain No obvious bleeding current hemoglobin 12.3 Physical Exam Vital signs: Vital Signs 06/05/18 20:00 06/06/18 00:00 06/06/18 04:00 Temperature 97.3 F L 97 F L 97.1 F L Pulse Rate 81 81 84 Respiratory Rate 18 20 20 Blood Pressure 163/77 H 176/80 H 152/87 H Pulse Oximetry 94 L 95 94 L 06/06/18 04:10 06/06/18 08:00 06/06/18 12:00 Temperature 97.1 F L 97.3 F L Pulse Rate 86 84 87 Respiratory Rate 22 21 Blood Pressure 163/72 H 151/81 H Pulse Oximetry 95 96 Intake & Output 06/05/18 06/06/18 06/06/18 18:59 06:59 18:59 Intake Total 2240 / 2240 720 / 720 Balance 2240 / 2240 720 / 720 Weight 51.9 kg Intake: IV 1999 NS Inj 1,000 ML @ 100 mls/hr IV 1999 .CONT .Q10H LENA Rx#:[id number] Oral 240 / 240 720 / 720 Other: # Voids 1 2 Date of Last Bowel Movement 06/05/18 06/05/18 # Bowel Movements 1 2 - Constitutional no acute distress - Routine HEENT Exam Head: Present: normocephalic, atraumatic Eye: Present: conjunctival icterus (Mild) ENT: Present: mucous membranes dry - Routine Neck Exam Present: supple - Routine Cardiovascular Exam Present: RRR - Routine Abdominal Exam Present: soft (TAUT, no abdominal pain) - Routine Skin Exam Present: dry, warm - Routine Neurological Exam Present: alert (Awake speech slurred but understandable) - Detailed Neurological Exam: Coma Scale Eye Opening: Spontaneous Verbal Response: Words (Understand simple questions) - Routine Psychiatric Exam Present: unable to assess - Urinary Catheter Management Straight Cath placed during this visit: yes, but has since been removed by the nurse Reason for continuing: Not indwelling catheter Insertion date: 06/05/18 Insertion time: 02:00 Removal date: 06/05/18 Removal time: 02:15 Results - Labs CBC & Chem 7: 06/06/18 10:30 06/06/18 08:02 Laboratory Results - last 24 hr 06/06/18 06/06/18 06/06/18 07:42 08:02 08:02 WBC RBC Hgb Hct MCV MCH MCHC RDW Plt Count MPV Prelim Diff (Auto) Neut % (Auto) Lymph % (Auto) [place] % (Auto) Eos % (Auto) Baso % (Auto) Neut # (Auto) Lymph # (Auto) [place] # (Auto) Eos # (Auto) Baso # (Auto) WBC Differential Diff Scan Differential Comment Sodium 142 Potassium 3.8 Chloride 113 H Carbon Dioxide 13.1 L Anion Gap 16 H BUN 26 H Creatinine 1.17 H Estimated GFR 57 L POC Glucose 54 L Random Glucose 56 L Calcium 8.1 L Total Bilirubin 1.2 H AST 162 H ALT 258 H Alkaline Phosphatase 198 H Ammonia 27 Total Protein 6.4 Albumin 2.8 L 06/06/18 06/06/18 10:30 11:18 WBC 7.2 RBC 4.61 Hgb 12.3 Hct 39.8 MCV 86.4 MCH 26.7 L MCHC 30.9 L RDW 20.3 H Plt Count 124 L D MPV 9.1 Prelim Diff (Auto) Slide review pending Neut % (Auto) 54.9 Lymph % (Auto) 34.2 [place] % (Auto) 7.1 Eos % (Auto) 3.2 Baso % (Auto) 0.6 Neut # (Auto) 3.9 Lymph # (Auto) 2.5 [place] # (Auto) 0.5 Eos # (Auto) 0.2 Baso # (Auto) 0.0 WBC Differential . Diff Scan Auto diff confirmed Differential Comment . Sodium Potassium Chloride Carbon Dioxide Anion Gap BUN Creatinine Estimated GFR POC Glucose 117 H Random Glucose Calcium Total Bilirubin AST ALT Alkaline Phosphatase Ammonia Total Protein Albumin Microbiology 06/03/18 17:10 Blood - Line Aerobic Blood Culture - Preliminary No growth in 3 days 06/03/18 17:10 Blood - Line Anaerobic Blood Culture - Preliminary No growth in 3 days 06/03/18 17:10 Blood - Line Aerobic Blood Culture - Preliminary No growth in 3 days 06/03/18 17:10 Blood - Line Anaerobic Blood Culture - Preliminary No growth in 3 days - Procedures None Assessment and Plan (1) Elevated LFTs Status: Acute Code(s): R94.5 - Abnormal results of liver function studies (2) Elevated ferritin Status: Acute Code(s): R79.89 - Other specified abnormal findings of blood chemistry - Plan Assessment: - Elevated LFTs with hyperammonemia Previously seen by our service during her last hospital admission in January and underwent liver work up. At that time LFTs were over 1000 and pt was noted to have hypotensive episodes and therefore it was said to be likely secondary to shocked liver. Previous liver work up in January: CONNIE, AMA, ASMA, celiac panel, hepatitis panel negative Ceruloplasmin-30 AAT-169 Iron-50 TIBC-182 % sat-27.5 Ferritin-2899 MRCP (February 23) No intra-or extrahepatic biliary ductal dilatation. Hepatic cysts. Bilateral pleural effusions. This admission: US gallbladder (06/03) Gallstone with gallbladder sludge and mild gallbladder wall thickening which may be related to mild ascites. No biliary ductal dilatation. (06/03) AST-352 ALT-411 Alk phos-196 T bili-1.3 ? cirrhosis- thrombocytopenia- plts 116 coagulopathy- INR 1.6 but no hypoalbuminemia - AMS- per NH staff pt has not been eating for a few days and stopped talking yesterday- baseline mental retardation with underlying dementia however has been eating and minimally communicating? Pt had previous PEG during last admission, since been removed 06/05/2018 patient is resting in the bed drowsy but does arouse to verbal conversation mumbling words but states she is not hungry and does not not appear to be eating. Current hemoglobin 13.1. Mild upper abdominal pain. Poor historian 06/06/2018 patient is more awake and is moving around in the bed spontaneously. Abdomen is round,taut, patient denies any abdominal pain monitoring labs current hemoglobin 12.3, no obvious bleeding. Bilirubin 1.2, AST 162, ALT 258, alkaline phosphatase 198, ammonia level 27. Hepatic cirrhosis probable, mild minimal appetite but seems to be slow improvement. Altered mental status appears to be resolved back to her baseline. Can follow patient on an outpatient basis. No discharge planning in process Plan: Diet, as tolerated Avoid hepatotoxins Monitor LFTs and hemoglobin Pepcid Lactulose BID Bowel regimen Anti-emetics Pt has been seen per myself and Dr. Guzman, this note written on her behalf
[2018-06-11 14:42] LABS: Specimen HFE WB Whole Blood
== END 2018-06-06 17:37 ==
LOC: NEDA 15:41 → N04 15:41 → NEPC 15:41 → N04 06-04 01:27
PROVIDERS: ADMIT Hospitalist; ATTEND Hospitalist